=== PATIENT | male | born 1955 | race Caucasian/White ===

== ENCOUNTER → 2018-05-15 10:11 | Outpatient (CLI) | payer OTHER, SELFPAY ==
--- NOTE | 2018-05-15 | DI.RAD.S_ITS ---
PROCEDURE: XR LUMBAR SPINE MIN 4V INDICATIONS: SPINAL STENOSIS TECHNIQUE: 5 views of the lumbar spine acquired. COMPARISON: [facility], MR, LUMBAR SPINE W/O CONTRAST, 05/28/2007, 12:16. FINDINGS: Bones: 5 nonrib-bearing vertebrae are present. There is normal bony alignment. No vertebral body compression fractures. No suspicious bony lesions. Oblique views demonstrate no pars intra-articularis defects. Mild multilevel disc degeneration and moderate L4-L5 and L5-S1 facet joint arthropathy Soft tissues: Overlying bowel gas pattern is normal. No suspicious soft tissue calcifications. IMPRESSION: Mild multilevel degenerative disc disease and moderate lower lumbar spine facet joint arthropathy. Dictated by: Jj OVERTONA Interpreted: Michelle Vazquez MD on 05/15/2018 at 11:02 Approved by: Michelle Vazquez MD, PhD on 05/15/2018 at 15:11
== END ==
PROVIDERS: PCP Family Medicine; Visit Provider Physical Medicine & Rehabilitation
DX: M51.36 Other intervertebral disc degeneration, lumbar region (principal); M51.37 Other intervertebral disc degeneration, lumbosacral region; M47.816 Spondylosis without myelopathy or radiculopathy, lumbar region; M47.817 Spondylosis without myelopathy or radiculopathy, lumbosacral region
CPT/HCPCS: 72110

== ENCOUNTER 2018-07-15 07:18 | Outpatient (CLI) | payer OTHER, SELFPAY ==
[2018-07-15] VITALS (8 sets, daily range): BP systolic 104–150; BP diastolic 55–78; PULSE 57–76; RESP 16–18; TEMP 36.6; O2SAT 94–98
--- NOTE | 2018-07-15 07:19 | DI.RAD.S_ITS ---
PROCEDURE: PAIN L/S FACET INJ/BLK 1ST [place] COMPARISON: None. INDICATIONS: SPONDYLOSIS FINDINGS: Spinal needles placed at the L4-L5 and L5-S1 levels as labeled on the films, and appropriate position of the needle tip was confirmed with small amount of contrast Dictated by: Memo Denson M.D. on 07/15/2018 at 13:21 Approved by: Memo Denson M.D. on 07/15/2018 at 13:23
[2018-07-15] MEDS: MIDAZOLAM 5 MG/5 ML VIAL IV (08:19)
[2018-07-15] MEDS: IOPAMIDOL 15 ML VIAL 3 ML INJ (08:31)
[2018-07-15] MEDS: BETAMETHASONE 30 MG/5 ML MDV 12 MG INJ (08:32)
[2018-07-15] MEDS: LIDOCAINE 1% 20 ML INJ 10 ML INJ (08:32)
--- NOTE | 2018-07-15 08:35 | PC.NURSE ---
ASSISTING PT OFF TABLE AND TRANSPORTING TO POST PROC AREA IN STABLE CONDITION
--- NOTE | 2018-07-15 08:42 | P.PCN_ITS ---
Procedures Date/Time Date of procedure: 07/15/18 Time of procedure: 08:41 General Procedure description: PREOP DIAGNOSIS 1. FACET ARTHROPATHY 2. AXIAL LBP 3. MULTILEVEL DDD POST OP DIAGNOSIS 1. FACET ARTHROPATHY 2. AXIAL LBP 3. MULTILEVEL DDD PROCEDURES 1. FLUORSCOPICALLY GUIDED CONTRAST CONTROLLED FACET JOINT INJECTIONS BILATERAL L4/5, L5/S1 PHYSICIAN: Gopal Akers, DO INDICATIONS Joey is referred by Dr. Rush for treatment of Axial LBP FINDINGS Multilevel Facet Arthropathy with Clinically significant axial LBP DESCRIPTION OF PROCEDURE Fluoroscopically guided, contrast-controlled bilateral L4/5, L5/S1 facet joint injections. Following denial of allergy and review of potential side effects and complications, including, but not necessarily limited to, infection, allergic reaction, local tissue breakdown, stroke, temporary or permanent nerve injury, paralysis, and possible , the patient indicated that the patient understood and agreed to proceed. An informed consent document was signed by the patient, witnessed by a nurse, and placed in the patient's chart. Additionally, other treatment options including medications, modalities, and physical therapy were reviewed with the patient. After review of previous anaesthesic history and IV conscious sedation the patient was deemed safe to proceed with todays procedure with IV conscious sedation as ASA class II designation. Safety time-out was performed to confirm patient ID, procedure to be performed and site of procedure. IV sedation was accomplished with a combination of 3mg was administered by the RN after DO order , titrated to patient comfort during the course of the procedure while the patient remained responsive to all verbal commands In the prone position, following sterile prep and drape of the lumbar region, the posterior aspect of the L4/5, L5/S1 facet joints were identified fluoroscopically. The skin was anesthetized via a 25-gauge 1.5-inch needle with 1% lidocaine solution into the corresponding facet joints. At this point, a 22-gauge 5-inch spinal needle was atraumatically introduced and advanced under fluoroscopic guidance into the corresponding facet joints. Following negative aspiration, injections of approximately 0.2-cc of Isovue 200 confirmed interarticular placement without vascular uptake. The identical procedure was then performed at the L4/5, L5/S1 facet joints on the left. Radiological data, including multiple fluoroscopic views of the lumbosacral spine, reveal a spinal needle at the L4/5, L5/S1 facet joints bilaterally. Subsequent views show flow of contrast material both superiorly and inferiorly within the joint space without vascular or intrathecal uptake. At this point, a total of 0.5 cc including a mixture of 0.25cc Marcaine and 0.25cc betamethasone was injected without complication into each of the corresponding facet joints. The patient tolerated the procedure well without signs or symptoms of complications prior to transfer to the recovery area continued monitoring without incident. The patient was then transferred to the recovery area where they were observed for an appropriate period of time after the injection. The patient reported a VAS score of 7 prior to the procedure and a post- procedure VAS of 0. Total Fluoroscopy Time: 20.3 seconds Total Conscious Sedation Time: 24min POST OP INSTRUCTIONS The patient was provided a Pain Log to continue to record their response to the target-specific procedure prior to follow-up visit with their referring physician. Additionally, specific post-injection care instructions and a contact number to our office were provided if concerns arise regarding possible complications associated with the procedure are suspected. Gopal Akers, Complications: none
--- NOTE | 2018-07-15 09:28 | PC.NURSE ---
pt returned from procedure, awake and able to move from w/c to chair with minimal assist. Resumed monitoring from Kelley NERI.
== END 2018-07-15 09:36 ==
LOC: RAD 07:19
PROVIDERS: PCP Family Medicine; Visit Provider Physical Medicine & Rehabilitation
DX: M47.817 Spondylosis without myelopathy or radiculopathy, lumbosacral region (principal); M47.816 Spondylosis without myelopathy or radiculopathy, lumbar region; M51.37 Other intervertebral disc degeneration, lumbosacral region; M51.36 Other intervertebral disc degeneration, lumbar region; M54.5 Low back pain
CPT/HCPCS: 64493; 64494; 99152; J0702; J2250

== ENCOUNTER 2018-08-26 12:52 | Emergency (ER) | payer OTHER, SELFPAY ==
[2018-08-26] VITALS (10 sets, daily range): BP systolic 101–144; BP diastolic 50–80; PULSE 51–127; RESP 14–24; TEMP 36.7; O2SAT 94–98
--- NOTE | 2018-08-26 13:06 | DI.RAD.S_ITS ---
PROCEDURE: XR CHEST 1V INDICATIONS: HTN emergency TECHNIQUE: One view of the chest was acquired. COMPARISON: None. FINDINGS: Surgical changes and devices: None. Lungs and pleura: Lung volumes are low. There are is likely basilar atelectasis and vascular crowding. Mediastinum: Mediastinal contours appear normal. Heart size is normal. Bones and chest wall: No suspicious bony lesions. Overlying soft tissues appear unremarkable. IMPRESSION: Basilar atelectasis and vascular crowding in the setting of low lung volumes. Dictated by: Bridgette Girard M.D. on 08/26/2018 at 13:58 Approved by: Bridgette Girard M.D. on 08/26/2018 at 14:01
--- NOTE | 2018-08-26 13:09 | ED.HA ---
HPI - Headache <Roberto Bello DO - Last Filed: 08/27/18 10:17> General Chief Complaint: Hypertension Stated Complaint: high blood pressure, headache Time Seen by Provider: 08/26/18 13:06 Source: patient Mode of arrival: ambulatory Limitations: no limitations History of Present Illness HPI Narrative: 63-year-old male nonsmoker with history of hypertension, presents with elevated blood pressures in the 190s and headache since yesterday. He recently had 1 of his antihypertensive stopped as it was seemingly related to swelling of his tongue. He still takes atenolol hydrochlorothiazide. His headache is improved but still present. He denies any blurred vision, trouble with speech or focal neurologic findings such as numbness, tingling or weakness. He denies any chest pain, shortness of breath or abdominal pain. He has no nausea, or diarrhea. He denies provocation or palliation of his headache MD Complaint: headache Onset (ago): day(s) Onset description: gradual Quality: aching Relieving factors: nothing Exacerbating factors: none Treatments prior to arrival: none Related Data Home Medications Medication Instructions Recorded Confirmed atenolol 50 mg PO DAILY #0 12/16/12 08/26/18 finasteride 5 mg PO DAILY #0 12/16/12 08/26/18 allopurinol 300 mg tablet 300 mg PO DAILY 05/15/18 08/26/18 hydrochlorothiazide 25 mg tablet 25 mg PO DAILY 05/15/18 08/26/18 montelukast 10 mg tablet 10 mg PO QPM 05/15/18 08/26/18 tamsulosin 0.4 mg capsule 0.4 mg PO DAILY 05/15/18 08/26/18 Blue Emu 1 applic TOPICAL PRN PRN 08/26/18 08/26/18 omeprazole 40 mg PO BID 08/26/18 08/26/18 Previous Rx's Medication Instructions Recorded celecoxib 200 mg capsule 200 mg PO DAILY #90 cap 08/14/18 Allergies Allergy/AdvReac Type Severity Reaction Status Date / Time losartan Allergy Severe Anaphylaxis Verified 08/26/18 13:11 carbamazepine [CARBAMAZEPINE] Allergy Mild Verified 08/26/18 13:11 lamotrigine [LAMOTRIGINE] Allergy Mild Verified 08/26/18 13:11 Review of Systems <DO Reinaldo Zhou Last Filed: 08/27/18 10:17> Constitutional Denies chills, Denies fever(s), Reports headache(s), Denies lethargy and Denies weakness Eyes Denies change in vision, Denies eye discharge, Denies irritation and Denies loss of vision ENT Ears, Nose, Mouth, and Throat: Denies change in voice, Reports headache(s), Denies neck pain and Denies sore throat Cardiovascular Denies chest pain, Denies irregular heart rhythm, Denies lightheadedness, Denies palpitations, Denies dyspnea, Denies dyspnea on exertion and Denies orthopnea Respiratory Denies cough, Denies dyspnea, Denies dyspnea on exertion and Denies wheezing Gastrointestinal Gastrointestinal: Denies abdominal pain, Denies change in bowel habits, Denies diarrhea, Denies nausea and Denies vomiting Genitourinary Denies hematuria, Denies flank pain, Denies urinary incontinence and Denies urinary urgency Musculoskeletal Denies neck pain Integumentary/Breasts Denies pruritus, Denies erythema, Denies rash and Denies wounds Neurologic Denies confusion, Reports headache(s), Denies loss of vision and Denies weakness Psychiatric Denies anxiety, Denies confusion, Denies depression, Denies homicidal ideation and Denies suicidal ideation Endocrine Denies palpitations Hematologic/Lymphatic Denies easy bruising Allergic/Immunologic Denies wheezing Exam <Roberto Bello, - Last Filed: 08/27/18 10:17> Narrative Exam Narrative: GENERAL: This is a well-nourished, well-developed patient, in mild distress. HEAD: Atraumatic. Normocephalic. No temporal or scalp tenderness. EYES: Pupils equal round and reactive. Extraocular motions intact. No scleral icterus. No injection or drainage. ENT: Nose without bleeding, purulent drainage or septal hematoma. Throat without erythema, tonsillar hypertrophy or exudate. Uvula midline. Airway patent. NECK: Trachea midline. No JVD or lymphadenopathy. Supple, nontender, no meningeal signs. CARDIOVASCULAR: Regular rate and rhythm without murmurs, gallops, or rubs. RESPIRATORY: Clear to auscultation. Breath sounds equal bilaterally. No wheezes, rales, or rhonchi. GASTROINTESTINAL: Abdomen soft, non-tender, nondistended. No hepato-splenomegaly, or palpable masses. No guarding. EXTREMITIES: No clubbing, cyanosis, or edema. No joint tenderness, effusion, or edema noted. BACK: Nontender without deformity or crepitance. No flank tenderness. NEURO: AOx3. SKIN: No rash or erythema. NIH Stroke Scale 1a. LOC: Patient is alert and keenly responsive (0) 1b. LOC Questions: Patient answers both LOC questions accurately (0) 1c. LOC Commands: Patient performs both tasks correctly (0) 2. Best Gaze: Normal (0) 3. Visual: No visual loss (0) 4. Facial palsy: Normal symmetrical movements (0) 5. Motor arm: No drift (0) 6. Motor leg: No drift (0) 7. Limb ataxia: Absent (0) 8. Sensory: Normal (0) 9. Best language: No aphasia; normal (0) 10. Dysarthria: Normal (0) 11. Extinction and inattention: No abnormality (0) NIHSS: 0 Initial Vital Signs Initial Vital Signs: Vital Signs Temperature 98.1 F 08/26/18 13:05 Pulse Rate 97 H 08/26/18 13:05 Respiratory Rate 22 08/26/18 13:05 Blood Pressure 132/69 08/26/18 13:05 Pulse Oximetry 97 08/26/18 13:05 <Karen Driscoll DO - Last Filed: 08/26/18 21:47> Initial Vital Signs Initial Vital Signs: Vital Signs Temperature 98.1 F 08/26/18 13:05 Pulse Rate 97 H 08/26/18 13:05 Respiratory Rate 22 08/26/18 13:05 Blood Pressure 132/69 08/26/18 13:05 Pulse Oximetry 97 08/26/18 13:05 Course <Roberto Bello DO - Last Filed: 08/27/18 10:17> Orders Ordered: Discontinued Medications Sodium Chloride (Normal Saline 0.9%) 1,000 mls @ 150 mls/hr IV CONT FAITH Last Infusion: 08/26/18 21:48 Dose: 0 mls/hr Admin: 08/26/18 13:32 Dose: 150 mls/hr Lorazepam (Ativan) 1 mg IV NOW ONE Stop: 08/26/18 14:57 Last Admin: 08/26/18 14:56 Dose: 1 mg Vital Signs - 8 hr 08/26/18 14:00 08/26/18 15:55 08/26/18 16:30 Pulse Rate 53 L 55 L 51 L Respiratory Rate 17 19 24 Blood Pressure [Right Arm] 101/56 L 125/71 114/62 Pulse Oximetry 97 96 97 08/26/18 17:41 08/26/18 19:00 08/26/18 20:00 Pulse Rate 52 L 51 L 52 L Respiratory Rate 22 20 24 Blood Pressure [Right Arm] 120/61 105/50 L 120/68 Pulse Oximetry 95 94 96 08/26/18 21:00 Pulse Rate 65 Respiratory Rate 14 Blood Pressure [Right Arm] 115/72 Pulse Oximetry 95 <Karen Driscoll DO - Last Filed: 08/26/18 21:47> Orders Ordered: Discontinued Medications Sodium Chloride (Normal Saline 0.9%) 1,000 mls @ 150 mls/hr IV CONT FAITH Last Infusion: 08/26/18 21:48 Dose: 0 mls/hr Admin: 08/26/18 13:32 Dose: 150 mls/hr Lorazepam (Ativan) 1 mg IV NOW ONE Stop: 08/26/18 14:57 Last Admin: 08/26/18 14:56 Dose: 1 mg Vital Signs - 8 hr 08/26/18 14:00 08/26/18 15:55 08/26/18 16:30 Pulse Rate 53 L 55 L 51 L Respiratory Rate 17 19 24 Blood Pressure [Right Arm] 101/56 L 125/71 114/62 Pulse Oximetry 97 96 97 08/26/18 17:41 08/26/18 19:00 08/26/18 20:00 Pulse Rate 52 L 51 L 52 L Respiratory Rate 22 20 24 Blood Pressure [Right Arm] 120/61 105/50 L 120/68 Pulse Oximetry 95 94 96 08/26/18 21:00 Pulse Rate 65 Respiratory Rate 14 Blood Pressure [Right Arm] 115/72 Pulse Oximetry 95 MDM - Headache <Roberto Bello DO - Last Filed: 08/27/18 10:17> Lab Data Result diagrams: 08/26/18 13:30 08/26/18 13:30 Lab Results 08/26/18 08/26/18 Range/Units 13:30 13:30 WBC 9.8 (4.5-11.0) X10^3/uL RBC 5.42 (4.5-5.9) X10^6/uL Hgb 13.4 L (13.5-17.5) g/dL Hct 42.6 (41-53) % MCV 78.5 L (80-100) fL MCH 24.7 L (26-34) PG MCHC 31.4 (30-36) % RDW 17.3 H (11.6-14.8) % Plt Count 303 (150-400) X10^3/uL Neut % (Auto) 74.3 (50-75) % Lymph % (Auto) 13.9 L (25-40) % Mcleod % (Auto) 8.9 (3-14) % Eos % (Auto) 2.1 (2-4) % Baso % (Auto) 0.8 (0-2) % Neut # (Auto) 7300 H (2704-8712) /uL Lymph # (Auto) 1400 (0917-5749) /uL Mcleod # (Auto) 900 (0-900) /uL Eos # (Auto) 200 (0-450) /uL Baso # (Auto) 100 (0-100) /uL Sodium 140 (137-145) mmol/L Potassium 3.8 (3.4-5.1) mmol/L Chloride 103 (98-107) mmol/L Carbon Dioxide 26 (22-32) mmol/L BUN 16 (9-20) mg/dL Creatinine 0.90 (0.66-1.25) mg/dL Estimated GFR > 60.0 (>60) mL/min BUN/Creatinine Ratio 17.8 (6-22) Glucose 181 H (80-110) mg/dL Calcium 9.2 (8.4-10.2) mg/dL Total Bilirubin 0.5 (0.2-1.3) mg/dL AST 58 (17-59) IU/L ALT 67 (21-72) IU/L Alkaline Phosphatase 78 (38-126) U/L Total Creatine Kinase 190 H (55-170) U/L CK-MB (CK-2) 3.18 H (<2.37) ng/mL CK-MB (CK-2) Rel Index 1.7 (1.5-5.0) % Troponin I < 0.012 (0.01-0.034) ng/mL Total Protein 7.5 (6.3-8.2) g/dL Albumin 4.2 (3.5-5.0) g/dL Globulin 3.3 (1.7-4.1) g/dL Albumin/Globulin Ratio 1.3 (1.0-2.8) Lipase 61 (23-300) U/L Imaging Data CT scan - head: Radiologist's impression: Patient: Joey May MR#: [id number] : 1955 Acct:[id number] Age/Sex: 63 / M Date of Service: 08/26/18 Loc: ED Accession Number: [id number] Procedure: CT head/brain wo con Ordering Provider: Roberto Bello D.O. PROCEDURE: CT HEAD/BRAIN WO CON INDICATIONS: DURBIN, HTN TECHNIQUE: Noncontrast 4.5 mm thick angled axial sections acquired from the foramen magnum to the vertex, with coronal and sagittal reformats. For radiation dose reduction, the following was used: automated exposure control, adjustment of mA and/or kV according to patient size. COMPARISON: [facility], CT, BRAIN W/O CONTRAST, 12/20/2007, 17:28. FINDINGS: Image quality: Excellent. CSF spaces: Basal cisterns are patent. No extra-axial fluid collections. The ventricles are symmetric in size and shape. Brain: Ill-defined hypodensity involving left posterior temporal region is seen with internal linear hyperdensity. The There is cerebral volume loss for age, with resultant ventricular and sulcal prominence. There are periventricular and deep white matter chronic small vessel ischemic changes. There is intracranial internal carotid artery atherosclerosis. Skull and face: Calvarium and visualized facial bones appear intact, without suspicious lesions. Sinuses: Visualized sinuses and mastoids are clear. IMPRESSION: 1. Ill-defined area of hypodensity involving posterior left temporal lobe at patient's known area of AV malformation, slightly more prominent in size on the current study compared to 2008 study. Internal linear hyperdensity, which may represent linear calcification. Comparison with more recent study can be helpful if available. MRI of brain can also be done for further evaluation of this region. 2. No other area of abnormal density is seen. Small old infarct in right frontal lobe. No mass effect or midline shift. Dictated by: Trell Cutler M.D. on 08/26/2018 at 13:36 Approved by: Trell Cutler M.D. on 08/26/2018 at 13:49 MRI - head: Radiologist's impression: [address] [address] Magnetic Resonance Report Signed Patient: Joey May MR#: [id number] : 1955 Acct:[id number] Age/Sex: 63 / M Date of Service: 08/26/18 Loc: ED Accession Number: [id number] Procedure: MR head/brain wo con Ordering Provider: Roberto Bello D.O. PROCEDURE: MR HEAD/BRAIN WO CON INDICATIONS: DURBIN, HTN, abnormality on CT TECHNIQUE: Non-contrast axial T1 spin echo, axial T2 fast spin echo, sagittal and axial FLAIR, coronal T2 fast spin echo, axial gradient echo, axial diffusion and ADC through the brain. COMPARISON: [facility], CT, BRAIN W/O CONTRAST, 12/20/2007, 17:28. [facility], CT, CT HEAD/BRAIN WO CON, 08/26/2018, 13:06. FINDINGS: Image quality: Limited by patient motion CSF spaces: Ventricles appear symmetric in size and shape. Basal cisterns are patent. No extra-axial fluid collections. Brain: 3.3 x 3.3 x 2.3 cm cystic lesion is noted in the left temporal lobe. The left temporal lobe cystic lesion is surrounded by vasogenic edema. There is curvilinear decreased susceptibility weighted signal in the posterior margin of the cystic lesion may represent calcium or chronic hemorrhage. There is mild cerebral volume loss for age. Brainstem appears normal. Diffusion-weighted images show no acute ischemic insults. Small, chronic, lacunar infarct with surrounding gliosis noted in the right frontal subcortical white matter. Normal intravascular flow voids are present. Skull and face: Calvarial bone marrow is normal in signal. Orbits are normal. Sinuses: Sinuses and mastoids are clear. IMPRESSION: 1. 3.3 x 3.3 x 2.3 cm cystic lesion left temporal lobe this may represent encephalomalacia with surrounding gliosis related to prior gamma knife therapy versus neoplastic process which has undergone cystic degeneration/necrosis. Recommend MRI of the brain with gadolinium contrast for further evaluation. 2. Small, chronic, right frontal subcortical white matter lacunar infarct. 3. Mild, diffuse cerebral volume loss. 4. Findings telephoned to Dr. Roberto Bello on 08/26/2018 at 1541 hrs. Dictated by: Michelle Vazquez MD, PhD on 08/26/2018 at 15:29 Approved by: Michelle Vazquez MD, PhD on 08/26/2018 at 15:42 <Karen Americo, DO - Last Filed: 08/26/18 21:47> Lab Data Attestation: I reviewed the patient's lab results. Lab Results 08/26/18 08/26/18 Range/Units 13:30 13:30 WBC 9.8 (4.5-11.0) X10^3/uL RBC 5.42 (4.5-5.9) X10^6/uL Hgb 13.4 L (13.5-17.5) g/dL Hct 42.6 (41-53) % MCV 78.5 L (80-100) fL MCH 24.7 L (26-34) PG MCHC 31.4 (30-36) % RDW 17.3 H (11.6-14.8) % Plt Count 303 (150-400) X10^3/uL Neut % (Auto) 74.3 (50-75) % Lymph % (Auto) 13.9 L (25-40) % Mcleod % (Auto) 8.9 (3-14) % Eos % (Auto) 2.1 (2-4) % Baso % (Auto) 0.8 (0-2) % Neut # (Auto) 7300 H (2406-5867) /uL Lymph # (Auto) 1400 (0505-5832) /uL Mcleod # (Auto) 900 (0-900) /uL Eos # (Auto) 200 (0-450) /uL Baso # (Auto) 100 (0-100) /uL Sodium 140 (137-145) mmol/L Potassium 3.8 (3.4-5.1) mmol/L Chloride 103 (98-107) mmol/L Carbon Dioxide 26 (22-32) mmol/L BUN 16 (9-20) mg/dL Creatinine 0.90 (0.66-1.25) mg/dL Estimated GFR > 60.0 (>60) mL/min BUN/Creatinine Ratio 17.8 (6-22) Glucose 181 H (80-110) mg/dL Calcium 9.2 (8.4-10.2) mg/dL Total Bilirubin 0.5 (0.2-1.3) mg/dL AST 58 (17-59) IU/L ALT 67 (21-72) IU/L Alkaline Phosphatase 78 (38-126) U/L Total Creatine Kinase 190 H (55-170) U/L CK-MB (CK-2) 3.18 H (<2.37) ng/mL CK-MB (CK-2) Rel Index 1.7 (1.5-5.0) % Troponin I < 0.012 (0.01-0.034) ng/mL Total Protein 7.5 (6.3-8.2) g/dL Albumin 4.2 (3.5-5.0) g/dL Globulin 3.3 (1.7-4.1) g/dL Albumin/Globulin Ratio 1.3 (1.0-2.8) Lipase 61 (23-300) U/L Imaging Data CTA head/neck: Radiologist's impression: PROCEDURE: CT ANGIO HEAD AND NECK INDICATIONS: request per neurosurgery at [facility] [place] TECHNIQUE: Pre-contrast 4.5 mm thick sections acquired from the foramen magnum to the vertex. After the administration of intravenous contrast, 1 mm thick sections acquired from the aortic arch through the [place]. Post-contrast 4.5 mm thick sections then re-acquired from the foramen magnum to the vertex. 3-dimensional ltgjlog-hprynjmgt-zfzxqtuhen (MIP) and/or volume rendering reformats were acquired of the central intracranial vasculature and neck separately. COMPARISON: [facility], MR, MR HEAD/BRAIN WO CON, 08/26/2018, 14:59. [facility], CT, CT HEAD/BRAIN WO CON, 08/26/2018, 13:06. [facility], CT, KIDNEY/ URETER/BLADDER, 07/31/2015, 21:44. [facility], CT, KIDNEY/ URETER/BLADDER, 12/24/2014, 21:48. [facility], CT, BRAIN W/O CONTRAST, 12/20/2007, 17:28. FINDINGS: Image quality: Excellent. BRAIN: CSF spaces: Ventricles are normal in size and shape. Basal cisterns are patent. No extra-axial fluid collections. Brain: No midline shift. There is redemonstration of the 3.3 cm enhancing left temporal lobe cystic lesion, better evaluated on comparison MRI performed earlier today. Small chronic right frontal subcortical lacunar infarct better evaluated on comparison exams. Skull and face: Calvarium and facial bones appear intact, without suspicious lesions. HEAD CT ANGIOGRAPHY: Anterior circulation: Intracranial internal carotid arteries are normal in size and flow. There is calcified plaque of the internal carotid arteries. The flow within the paired anterior cerebral arteries is normal and symmetric. The flow within the middle cerebral arteries is normal and symmetric. The anterior communicating artery is seen. No aneurysms are seen. Posterior circulation: The right vertebral artery is dominant. The left vertebral artery does not definitively join with the right vertebral artery, and appears to terminate as a left inferior cerebellar artery. The basilar artery appears to originate from the right vertebral artery. There is poor opacification of the origins of the right posterior cerebral artery, which does not definitively join with the basilar artery. Flow within the posterior cerebral arteries is otherwise normal and symmetric. No aneurysms are seen. NECK CT ANGIOGRAPHY: Carotid system: The great vessels demonstrate a conventional anatomy as they arise from the aortic arch. The origins of the common carotid arteries appear patent. The common carotid arteries demonstrate normal caliber and courses. The bifurcation regions are both widely patent. There is mild calcified and noncalcified plaque of the bilateral carotid bifurcations. The internal carotid arteries demonstrate normal calibers and courses. Posterior circulation: The origins of the vertebral arteries both appear widely patent. The more superior extracranial portions of both vertebral arteries also demonstrate normal courses and calibers. The left vertebral artery appears to terminate as an inferior left cerebellar artery, with the right vertebral artery providing the origin of the basilar artery. Soft tissues: Visualized neck soft tissues demonstrate no suspicious abnormalities. Bones: Mild multilevel degenerative changes of the cervical spine. IMPRESSION: 1. 3.3 cm enhancing left temporal lobe cystic lesion, better evaluated on comparison MRI performed earlier today. 2. Mild calcified plaque of the bilateral carotid bifurcations. The cervical carotid and vertebral arteries are otherwise patent and demonstrate no aneurysm, stenosis, or occlusion. 3. Right dominant vertebral artery providing the origin of the basilar artery. Left vertebral artery appears to terminate as an inferior cerebellar artery without definite connection to the right vertebral artery. 4. The origin of the right posterior cerebral artery is poorly opacified at the expected location of its connection with the basilar artery; this may be developmental and represent origination of the right posterior cerebral artery from the right posterior communicating artery, or represent an occlusion at the junction of the basilar artery with the right posterior cerebral artery. Any quantitative measurements of stenosis were performed using NASCET criteria. Dictated by: Benny Linares M.D. on 08/26/2018 at 21:10 MDM Narrative Medical decision making narrative: I have taken over for day shift provider. I have seen evaluated patient myself. He is resting comfortably. Blood pressure is decreased significantly. He does mild headache. 8:[address] Agrawal neuro surgery at [facility] has reviewed patient's CT a states that it is stable compared to previous. At this time follow up in outpatient clinic. 9:45 p.m. I have updated the patient on official radiology results and to follow up at [facility]. All questions have been addressed. Discharge Plan Departure Patient Disposition: Home Clinical Impression: Headache Discharge Date/Time: 08/26/18 21:50 Interventions: ED Discharge Assessment Last Done: 08/26/18 21:48 Instructions: DI for Headache Activity Restrictions/Additional Instructions: *You have been diagnosed with Headache *What to do: He may need to have her blood pressure readings rechecked and followed with her primary at this time no indication to change medication *Continue to take medications as directed *Follow up with your primary care provider in 2-3 days Call [facility] [phone] for follow-up for AVM *Return to ER if you should have worsening headache, weakness, speech difficulty or any new, worsening or concerning symptoms Prescriptions: No Action atenolol 50 MG tablet 50 mg PO DAILY Qty: 0 RF: 0 finasteride 5 MG tablet 5 mg PO DAILY Qty: 0 RF: 0 Blue Emu 1 applic Topical PRN PRN (Reason: muscle pain) RF: 0 omeprazole 20 mg capsule,delayed release(DR/EC) 40 mg PO BID RF: 0 allopurinol 300 mg tablet 300 mg PO DAILY RF: 0 montelukast 10 mg tablet 10 mg PO QPM RF: 0 hydrochlorothiazide 25 mg tablet 25 mg PO DAILY RF: 0 tamsulosin 0.4 mg capsule 0.4 mg PO DAILY RF: 0 celecoxib [Celebrex] 200 mg capsule 200 mg PO DAILY Qty: 90 RF: 2 ED Cosign/Signout <Roberto Bello DO - Last Filed: 08/27/18 10:17> Cosign ED Attending Cosignature Attestation: I was immediately available in the department for consultation. Documentation has been reviewed. I agree with assessment and plan.
--- NOTE | 2018-08-26 13:15 | PC.NURSE ---
Pt reports increase in blood pressure, after being removed from lisinopril. Pt reports feeling headaches when blood pressure is elevated. reports checks blood pressure with automatic upper arm cuff.
[2018-08-26] MEDS: SODIUM CHLORIDE 0.9% 1,000 ML 150 ML IV (13:32)
[2018-08-26 13:37] LABS: Add Manual Diff / Slide Review NO; Basophils Absolute Auto 100 /uL (0-100); Basophils Percent Auto 0.8 % (0-2); Eosinophils Absolute Auto 200 /uL (0-450); Eosinophils Percent Auto 2.1 % (2-4); Hematocrit 42.6 % (41-53); Hemoglobin 13.4 g/dL (13.5-17.5); Lymphocytes Absolute Auto 1400 /uL (1100-4500); Lymphocytes Percent Auto 13.9 % (25-40); Mean Corpuscular HGB Conc 31.4 % (30-36); Mean Corpuscular Hemoglobin 24.7 PG (26-34); Mean Corpuscular Volume 78.5 fL (80-100); Monocytes Absolute Auto 900 /uL (0-900); Monocytes Percent Auto 8.9 % (3-14); Neutrophils Absolute Auto 7300 /uL (1500-7000); Neutrophils Percent Auto 74.3 % (50-75); Platelet Count 303 X10^3/uL (150-400); Red Blood Cell Count 5.42 X10^6/uL (4.5-5.9); Red Cell Distribution Width 17.3 % (11.6-14.8); White Blood Cell Count 9.8 X10^3/uL (4.5-11.0)
[2018-08-26 13:50] LABS: Alanine Aminotransferase 67 IU/L (21-72); Albumin 4.2 g/dL (3.5-5.0); Albumin Globulin Ratio 1.3 (1.0-2.8); Alkaline Phosphatase 78 U/L (38-126); Aspartate Aminotransferase 58 IU/L (17-59); BUN Creatinine Ratio 17.8 (6-22); Bilirubin Total 0.5 mg/dL (0.2-1.3); Blood Urea Nitrogen 16 mg/dL (9-20); Calcium 9.2 mg/dL (8.4-10.2); Carbon Dioxide 26 mmol/L (22-32); Chloride 103 mmol/L (98-107); Creatine Kinase 190 U/L (55-170); Estimated Glomerular Filt Rate > 60.0 mL/min (>60); Globulin 3.3 g/dL (1.7-4.1); Glucose 181 mg/dL (80-110); HEMOLYSIS 17 (0-50); Lipase 61 U/L (23-300); Potassium 3.8 mmol/L (3.4-5.1); Sodium 140 mmol/L (137-145); Total Protein 7.5 g/dL (6.3-8.2)
[2018-08-26 14:02] LABS: Troponin I < 0.012 ng/mL (0.01-0.034)
[2018-08-26 14:05] LABS: CKMB % Relative Index 1.7 % (1.5-5.0); Creatine Kinase MB 3.18 ng/mL (<2.37)
--- NOTE | 2018-08-26 14:22 | DI.MRI.S_ITS ---
PROCEDURE: MR HEAD/BRAIN WO CON INDICATIONS: DURBIN, HTN, abnormality on CT TECHNIQUE: Non-contrast axial T1 spin echo, axial T2 fast spin echo, sagittal and axial FLAIR, coronal T2 fast spin echo, axial gradient echo, axial diffusion and ADC through the brain. COMPARISON: [facility], CT, BRAIN W/O CONTRAST, 12/20/2007, 17:28. [facility], CT, CT HEAD/BRAIN WO CON, 08/26/2018, 13:06. FINDINGS: Image quality: Limited by patient motion CSF spaces: Ventricles appear symmetric in size and shape. Basal cisterns are patent. No extra-axial fluid collections. Brain: 3.3 x 3.3 x 2.3 cm cystic lesion is noted in the left temporal lobe. The left temporal lobe cystic lesion is surrounded by vasogenic edema. There is curvilinear decreased susceptibility weighted signal in the posterior margin of the cystic lesion may represent calcium or chronic hemorrhage. There is mild cerebral volume loss for age. Brainstem appears normal. Diffusion-weighted images show no acute ischemic insults. Small, chronic, lacunar infarct with surrounding gliosis noted in the right frontal subcortical white matter. Normal intravascular flow voids are present. Skull and face: Calvarial bone marrow is normal in signal. Orbits are normal. Sinuses: Sinuses and mastoids are clear. IMPRESSION: 1. 3.3 x 3.3 x 2.3 cm cystic lesion left temporal lobe this may represent encephalomalacia with surrounding gliosis related to prior gamma knife therapy versus neoplastic process which has undergone cystic degeneration/necrosis. Recommend MRI of the brain with gadolinium contrast for further evaluation. 2. Small, chronic, right frontal subcortical white matter lacunar infarct. 3. Mild, diffuse cerebral volume loss. 4. Findings telephoned to Dr. Roberto Bello on 08/26/2018 at 1541 hrs. Dictated by: Michelle Vazquez MD, PhD on 08/26/2018 at 15:29 Approved by: Michelle Vazquez MD, PhD on 08/26/2018 at 15:42
[2018-08-26] MEDS: LORazepam 2 MG/ML SYRINGE 1 MG IV (14:56)
--- NOTE | 2018-08-26 17:38 | DI.CT.S_ITS ---
PROCEDURE: CT ANGIO HEAD AND NECK INDICATIONS: request per neurosurgery at [facility] TECHNIQUE: Pre-contrast 4.5 mm thick sections acquired from the foramen magnum to the vertex. After the administration of intravenous contrast, 1 mm thick sections acquired from the aortic arch through the [place] of [place]. Post-contrast 4.5 mm thick sections then re-acquired from the foramen magnum to the vertex. 3-dimensional rqktdzs-pyyzmujyq-hteztojxfp (MIP) and/or volume rendering reformats were acquired of the central intracranial vasculature and neck separately. COMPARISON: [facility], MR, MR HEAD/BRAIN WO CON, 08/26/2018, 14:59. [facility], CT, CT HEAD/BRAIN WO CON, 08/26/2018, 13:06. [facility], CT, KIDNEY/ URETER/BLADDER, 07/31/2015, 21:44. [facility], CT, KIDNEY/ URETER/BLADDER, 12/24/2014, 21:48. [facility], CT, BRAIN W/O CONTRAST, 12/20/2007, 17:28. FINDINGS: Image quality: Excellent. BRAIN: CSF spaces: Ventricles are normal in size and shape. Basal cisterns are patent. No extra-axial fluid collections. Brain: No midline shift. There is redemonstration of the 3.3 cm enhancing left temporal lobe cystic lesion, better evaluated on comparison MRI performed earlier today. Small chronic right frontal subcortical lacunar infarct better evaluated on comparison exams. Skull and face: Calvarium and facial bones appear intact, without suspicious lesions. HEAD CT ANGIOGRAPHY: Anterior circulation: Intracranial internal carotid arteries are normal in size and flow. There is calcified plaque of the internal carotid arteries. The flow within the paired anterior cerebral arteries is normal and symmetric. The flow within the middle cerebral arteries is normal and symmetric. The anterior communicating artery is seen. No aneurysms are seen. Posterior circulation: The right vertebral artery is dominant. The left vertebral artery does not definitively join with the right vertebral artery, and appears to terminate as a left inferior cerebellar artery. The basilar artery appears to originate from the right vertebral artery. There is poor opacification of the origins of the right posterior cerebral artery, which does not definitively join with the basilar artery. Flow within the posterior cerebral arteries is otherwise normal and symmetric. No aneurysms are seen. NECK CT ANGIOGRAPHY: Carotid system: The great vessels demonstrate a conventional anatomy as they arise from the aortic arch. The origins of the common carotid arteries appear patent. The common carotid arteries demonstrate normal caliber and courses. The bifurcation regions are both widely patent. There is mild calcified and noncalcified plaque of the bilateral carotid bifurcations. The internal carotid arteries demonstrate normal calibers and courses. Posterior circulation: The origins of the vertebral arteries both appear widely patent. The more superior extracranial portions of both vertebral arteries also demonstrate normal courses and calibers. The left vertebral artery appears to terminate as an inferior left cerebellar artery, with the right vertebral artery providing the origin of the basilar artery. Soft tissues: Visualized neck soft tissues demonstrate no suspicious abnormalities. Bones: Mild multilevel degenerative changes of the cervical spine. IMPRESSION: 1. 3.3 cm enhancing left temporal lobe cystic lesion, better evaluated on comparison MRI performed earlier today. 2. Mild calcified plaque of the bilateral carotid bifurcations. The cervical carotid and vertebral arteries are otherwise patent and demonstrate no aneurysm, stenosis, or occlusion. 3. Right dominant vertebral artery providing the origin of the basilar artery. Left vertebral artery appears to terminate as an inferior cerebellar artery without definite connection to the right vertebral artery. 4. The origin of the right posterior cerebral artery is poorly opacified at the expected location of its connection with the basilar artery; this may be developmental and represent origination of the right posterior cerebral artery from the right posterior communicating artery, or represent an occlusion at the junction of the basilar artery with the right posterior cerebral artery. Any quantitative measurements of stenosis were performed using NASCET criteria. Dictated by: Benny Linares M.D. on 08/26/2018 at 21:10 Approved by: Benny Linares M.D. on 08/26/2018 at 21:32
== END 2018-08-26 21:50 | disposition home or self-care (01) ==
PROVIDERS: Emergency Medicine; Emergency Provider Emergency Medicine; PCP Family Medicine
DX: R51 Headache (principal)
CPT/HCPCS: 36591; 70450; 70496; 70498; 70551; 71045; 80053; 82550; 82553; 83690; 84484; 85025; 93005; 93010; 96361; 96374; 99283; 99285; J2060; Q9967

== ENCOUNTER 2018-11-10 16:37 | Inpatient (IN) | payer OTHER, SELFPAY ==
[2018-11-10] VITALS (8 sets, daily range): BP systolic 107–128; BP diastolic 42–63; PULSE 55–64; RESP 15–21; TEMP 36.7–37.2; O2SAT 94–96; BMI 44.4
--- NOTE | 2018-11-10 | DI.ECHO.S_ITS ---
[facility] +---------+ : : [address] : : : [place], [place] : : : : [id number] : : : : Phone: [phone]+ Echocardiogram Report + + :Name: SHELLIE FRIAS Study Date: 11/11/2018 Height: 70 in : :[facility] Exam Location: IS Weight: 309 lb : : Gender: Male BSA: 2.5 m2 : :: 1955 Age: 63 yrs BP: 125/53 mmHg: :Reason For Study: CVA/ arrythmia : :Ordering Physician: Carlota : :Hospitalist Performed By: Lexi Page : :Referring: GOLDY RODRIGUEZ : + + Interpretation Summary Technically difficult study limiting valve and atria visualization. 1) Normal left ventricular thickness, size, wall motion, and systolic function (EF 65-70%). 2) Normal right ventricular size and function. 3) No significant valvular abnormalities by doppler assessment. 4) Injection of contrast documented no interatrial shunt. 5) No prior Echo available for comparison. Procedure: A two-dimensional transthoracic echocardiogram with color flow and Doppler was performed. The study quality was technically difficult. There is no prior echocardiogram noted for this patient. A saline contrast injection was performed to assess for cardiac shunting. A contrast injection of Definity was performed to improve assessment of LV function. The patient was in sinus bradycardia with heart rates between 48-54 bpm during the exam. Left Ventricle: The left ventricle was not well visualized but is grossly normal in size, thickness and function. The ejection fraction is estimated to be 65-70%. Left ventricular systolic function is normal without focal wall motion abnormalities. Right Ventricle: The right ventricle grossly appears normal in size with probable normal systolic function. Atria: Mildly enlarged grossly. The right atrium grossly appears normal in size. There is no Doppler evidence for an interatrial shunt. Injection of contrast documented no interatrial shunt. Mitral Valve: The mitral valve is grossly normal. There is trace mitral regurgitation. Aortic Valve: The aortic valve is not well visualized. The aortic valve opens well. No aortic regurgitation is present. Tricuspid Valve: The tricuspid valve is not well visualized, but is grossly normal. There is a trace or physiologic amount of tricuspid regurgitation. Pulmonary artery pressures cannot be estimated because of the lack of a measurable TR jet velocity. Pulmonic Valve: The pulmonic valve is not well visualized. There is trace pulmonic regurgitation. Great Vessels: The aortic root is normal size. The ascending aorta is mildly enlarged. The pulmonary artery is not well visualized, but is probably normal size. The inferior vena cava was not visualized. Pericardium/ Pleura There is no pericardial effusion. There is no pleural effusion. MMode/2D Measurements & Calculations LVIDd: 5.4 cm Ao root diam: 3.4 cm LVIDs: 3.2 cm asc Aorta Diam: 3.6 cm FS: 41.3 % IVSd: 0.86 cm LVPWd: 1.0 cm LV benito. diameter/BSA (cm/m^2): 2.2 LV sys. diameter/BSA (cm/m^2): 1.3 LA A2 area: 24.6 cm2 RA long axis: 4.9 cm LA A4 area: 32.9 cm2 RA area: 15.2 cm2 LA length (vol): 7.1 cm RA vol: 39.9 ml LA vol: 96.9 ml RA : 15.9 ml/m2 LA vol index: 38.6 ml/m2 Doppler Measurements & Calculations Ao V2 max: 141.0 cm/sec LVOT Max Grayson: 118.9 cm/sec Ao V2 mean: 83.0 cm/sec LV V1 max P.7 mmHg Ao max P.0 mmHg LV V1 VTI: 24.9 cm Ao mean P.4 mmHg sev ratio: 0.93 Ao V2 VTI: 26.7 cm MV E max grayson: 89.4 cm/sec PA V2 max: 73.0 cm/sec MV A max grayson: 66.6 cm/sec PA V2 mean: 48.7 cm/sec MV E/A: 1.3 PA mean P.1 mmHg Med Peak E' Grayson: 7.7 cm/sec PA Accel Time: 0.07 sec E/E' med: 11.6 Lat Peak E' Grayson: 6.9 cm/sec E/E' lat: 12.9 E/e' average: 12.3 MV P1/2t: 53.9 msec MV P1/2t max grayson: 89.0 cm/sec MVA(P1/2t): 4.1 cm2 Reading Physician:03:06 PM
--- NOTE | 2018-11-10 16:38 | ED.NEUROSD ---
HPI - Neuro Symptoms/Deficit General Chief Complaint: Neuro Symptoms/Deficit Stated Complaint: Stroke Time Seen by Provider: 11/10/18 16:37 Source: patient, EMS and old records reviewed Mode of arrival: EMS Limitations: no limitations History of Present Illness HPI Narrative: This is a 63-year-old male comes to the emergency department with complaint of weakness, facial droop and difficulty with speech. Patient states that his symptoms started sometime after 1. He went on break at 2:00 p.m and. he was having some weakness but not to the extent he is now. He was at work at the [employer]. They evaluated him, contacted EMS and he was transported here. Patient was interacting with [employer] staff by writing and was not able to talk his speech is improved over time but he is still slurred. He has had some facial droop on the left. He has had this intermittently in the past and states that they have not found the exact cause but think it might be muscle spasm. The weakness in his arm and leg is new. He has not had that recently He states he was told he may have had a TIA in the past. 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 He is not on any asa or blood thinners. Related Data Home Medications Medication Instructions Recorded Confirmed atenolol 50 mg PO DAILY #0 12/16/12 08/26/18 finasteride 5 mg PO DAILY #0 12/16/12 08/26/18 allopurinol 300 mg tablet 300 mg PO DAILY 05/15/18 08/26/18 hydrochlorothiazide 25 mg tablet 25 mg PO DAILY 05/15/18 08/26/18 montelukast 10 mg tablet 10 mg PO QPM 05/15/18 08/26/18 tamsulosin 0.4 mg capsule 0.4 mg PO DAILY 05/15/18 08/26/18 Blue Emu 1 applic TOPICAL PRN PRN 08/26/18 08/26/18 omeprazole 40 mg PO BID 08/26/18 08/26/18 Previous Rx's Medication Instructions Recorded celecoxib 200 mg capsule 200 mg PO DAILY #90 cap 08/14/18 Allergies Allergy/AdvReac Type Severity Reaction Status Date / Time losartan Allergy Severe Anaphylaxis Verified 11/10/18 16:53 carbamazepine [CARBAMAZEPINE] Allergy Mild Verified 11/10/18 16:53 lamotrigine [LAMOTRIGINE] Allergy Mild Verified 11/10/18 16:53 Review of Systems Review of Systems ROS Unobtainable: All systems reviewed & are unremarkable except as noted in HPI and below Constitutional Reports headache(s) Eyes Denies loss of vision ENT Ears, Nose, Mouth, and Throat: Denies dizziness, Reports headache(s) and Reports other (facial droop) Cardiovascular Denies chest pain, Denies diaphoresis, Denies syncope, Denies rapid heart rate, Denies irregular heart rhythm, Denies leg edema, Denies lightheadedness, Denies palpitations, Denies dyspnea, Denies dyspnea on exertion and Denies orthopnea Respiratory Denies change in phlegm color, Denies chest congestion, Denies cough, Denies dyspnea, Denies dyspnea on exertion and Denies wheezing Gastrointestinal Gastrointestinal: Denies abdominal pain, Denies change in bowel habits, Denies diarrhea, Denies nausea and Denies vomiting Genitourinary Denies dysuria, Denies urinary frequency and Denies urinary hesitancy Musculoskeletal Reports abnormal gait, Reports muscle weakness (left arm/leg), Denies numbness and Denies tingling Neurologic Reports as per HPI, Reports abnormal speech, Reports abnormal gait, Denies confusion, Denies dizziness, Denies syncope, Reports headache(s), Reports focal weakness (left arm/leg), Denies loss of vision, Denies numbness, Denies seizure-like activity, Denies sensory deficit, Denies tingling and Denies paresthesias Psychiatric Denies confusion Endocrine Denies palpitations Allergic/Immunologic Denies wheezing [facility] Medical History Status post gamma knife treatment (Chronic) AVM (arteriovenous malformation) (Chronic) Social History Smoking Status: Former smoker Social History Smoking Status: Former smoker Exam Narrative Exam Narrative: GEN: Well-nourished, obese male, alert and oriented x 3, patient appears to be in moderate distress. HEENT: Atraumatic, pupils are equal round reactive to light, extraocular movements are intact, nares are clear, TMs are clear with no fluid, there is no conjunctival pallor. Throat is clear without any exudates, erythema, tonsillar enlargement or uvular deviation, left lower facial droop. HEART: Regular rate and rhythm without murmur, clicks, rubs. Pulses are equal in upper and lower extremities LUNGS:Lungs clear to auscultation, no wheezes, rales, crackles, chest moves symmetrically ABD:bowel sounds normal, soft, non-tender, no guarding, rebound, rigidity, no masses noted, no hepatosplenomegaly :No CVA tenderness MSCL: Non-tender, no muscle atrophy, patient does lift up his left upper extremity as well as leg but drifts back down to the bed he is not able to hold it up. He does not have any issues with the right upper extremity or leg. He also has difficulty with finger-nose finger on the left thumb as well as heel-ann he is not able to accomplish this. He is on the right. He states maybe some mild decrease in sensation although it is difficult for him to tell. NEURO:CN 2-12 intact, sensation normal, reflexes 2/4 upper and lower extremities. see above. Patient has some mild dysarthria. No aphasia. Initial Vital Signs Initial Vital Signs: Vital Signs Temperature 98.1 F 11/10/18 16:30 Pulse Rate 64 11/10/18 16:30 Respiratory Rate 19 11/10/18 16:30 Blood Pressure 127/52 L 11/10/18 16:30 Pulse Oximetry 94 11/10/18 16:30 Scores NIH Stroke Scale Level of Conciousness: Alert, keenly responsive Ask month/age: Answers both questions correctly. Open/close eyes, close hand: Performs both tasks correctly Best gaze horizontal: Normal Visual savage: No visual loss Facial palsy: Partial paralysis, total or near total paralysis of lower face Left arm drift: Some effort against gravity, cannot maintain, drifts down to bed Right arm drift: No drift for full 10 sec Left leg drift: Some effort against gravity, cannot maintain, drifts down to bed Right leg drift: No drift for full 10 sec Limb ataxia: Present in two limbs Sensory on face/arms/legs: Mild to moderate sensory loss, can tell touch Best language: No aphasia, normal Dysarthria: Mild to mod,some slurring Extinction or inattention: No abnormality Total NIH Stroke scale score: 10 Course Orders Ordered: ED Orders 11/10/18 16:37 CT angio head and neck Stat CT head/brain wo con Stat XR chest 1V Stat EKG-12 Lead Stat 11/10/18 16:40 Basic Metabolic Panel Stat Complete Blood Count AUTO DIFF Stat Partial Thromboplastin Time Stat Prothrombin Time INR Stat Troponin I Stat 11/10/18 17:06 Urine Drug Screen, Rapid Stat Sodium Chloride (Normal Saline 0.9%) 1,000 mls @ 150 mls/hr IV CONT FAITH Last Infusion: 11/10/18 19:02 Dose: 150 mls/hr Admin: 11/10/18 17:17 Dose: 150 mls/hr Discontinued Medications Aspirin (Aspirin Chew) 324 mg PO NOW ONE Stop: 11/10/18 17:03 Last Admin: 11/10/18 17:17 Dose: 324 mg Potassium Chloride (Potassium Chloride) 40 meq PO NOW ONE Stop: 11/10/18 18:05 Last Admin: 11/10/18 18:23 Dose: 40 meq Vital Signs - 8 hr 11/10/18 16:30 11/10/18 16:50 11/10/18 17:29 Temperature 98.1 F Pulse Rate 64 57 L 63 Respiratory Rate 19 21 15 Blood Pressure 127/52 L Blood Pressure [Right Arm] 118/56 L 125/61 Pulse Oximetry 94 96 94 11/10/18 17:48 11/10/18 18:00 11/10/18 18:55 Temperature Pulse Rate 58 L 57 L 55 L Respiratory Rate 19 18 16 Blood Pressure Blood Pressure [Right Arm] 112/55 L 110/42 L 107/45 L Pulse Oximetry 95 94 MDM - Neuro Symptoms/Deficit Lab Data Attestation: I reviewed the patient's lab results. Result diagrams: 11/10/18 16:40 11/10/18 16:40 Lab Results 11/10/18 11/10/18 11/10/18 Range/Units 16:40 16:40 16:40 WBC 12.2 H (4.5-11.0) X10^3/uL RBC 5.63 (4.5-5.9) X10^6/uL Hgb 13.3 L (13.5-17.5) g/dL Hct 43.1 (41-53) % MCV 76.6 L (80-100) fL MCH 23.6 L (26-34) PG MCHC 30.8 (30-36) % RDW 17.3 H (11.6-14.8) % Plt Count 316 (150-400) X10^3/uL Neut % (Auto) 66.2 (50-75) % Lymph % (Auto) 19.0 L (25-40) % [place] % (Auto) 10.8 (3-14) % Eos % (Auto) 3.4 (2-4) % Baso % (Auto) 0.6 (0-2) % Neut # (Auto) 8000 H (3818-6196) /uL Lymph # (Auto) 2300 (7434-8480) /uL [place] # (Auto) 1300 H (0-900) /uL Eos # (Auto) 400 (0-450) /uL Baso # (Auto) 100 (0-100) /uL PT 12.5 (10.1-12.7) SECONDS INR 1.1 (0.9-1.3) APTT 32 (26.4-36.2) SECONDS Sodium 138 (137-145) mmol/L Potassium 3.0 L (3.4-5.1) mmol/L Chloride 96 L (98-107) mmol/L Carbon Dioxide 31 (22-32) mmol/L BUN 18 (9-20) mg/dL Creatinine 0.80 (0.66-1.25) mg/dL Estimated GFR > 60.0 (>60) mL/min BUN/Creatinine Ratio 22.5 H (6-22) Glucose 158 H (80-110) mg/dL Calcium 9.4 (8.4-10.2) mg/dL Troponin I < 0.012 (0.01-0.034) ng/mL Imaging Data CT scan - head: Radiologist's impression: [facility] DATE TYPE STATUS AUTHOR Hx 11/10/18 16:37 Jessica Sanchez 08/26/18 17:38 Benny Linares 08/26/18 14:22 Michelle Vazquez 08/26/18 13:08 Trell Cutler 08/26/18 13:06 Bridgette Girard 07/15/18 07:19 Memo Denson 05/15/18 00:00 Michelle Vazquez Danny C 63, 1955 REG ER, ED.LOC - Main ED: R01 140.3kg Neuro Symptoms/Deficit Search Chart NF - Not included in interaction checking Anaphylaxis ONSET Today 16:50 Joey May 63 M [address] [address] [address] Scan Report Signed Patient: Joey May CMR#: [id number] : 5Acct:[id number] Age/Sex: 63 / MDate of Service: 11/10/18 Loc: ED Accession Number: [id number] Procedure: CT head/brain wo con Ordering Provider: Shona Wagner D.O. PROCEDURE: CT HEAD/BRAIN WO CON INDICATIONS: Code stroke-possible TPA TECHNIQUE: Noncontrast 4.5 mm thick angled axial sections acquired from the foramen magnum to the vertex, with coronal and sagittal reformats. For radiation dose reduction, the following was used: automated exposure control, adjustment of mA and/or kV according to patient size. COMPARISON: CT, BRAIN W/O CONTRAST, 12/20/2007, 17:28. [facility], MR, MR HEAD/BRAIN WO CON, 08/26/2018, 14:59. [facility], CT, CT HEAD/BRAIN WO CON, 08/26/2018, 13:06. FINDINGS: Image quality: Excellent. CSF spaces: Basal cisterns are patent. No extra-axial fluid collections. The ventricles are symmetric in size and shape. Brain: As identified on prior exam, there is low attenuation within the left temporal lobe with dependent focus of hyperdensity. Overall appearance has not changed compared to prior exam.. There is cerebral volume loss for age, with resultant ventricular and sulcal prominence. There are periventricular and deep white matter chronic small vessel ischemic changes. There is intracranial internal carotid artery atherosclerosis. Skull and face: Calvarium and visualized facial bones appear intact, without suspicious lesions. Sinuses: Visualized sinuses and mastoids are clear. IMPRESSION: 1. No acute intracranial process. 2. Mild chronic microvascular ischemic changes. 3. Persistent low-attenuation focus with dependent hyperdensity in the left temporal lobe. As previously noted, this can represent a cystic focus with areas of dependent calcification or chronic hemorrhage. This is suspected to be related to to gliosis secondary to prior gamma knife surgery for AVM, given stability over multiple prior exams. Dictated by: Jessica Sanchez M.D. on 11/10/2018 at 16:46 Approved by: Jessica Sanchez M.D. on 11/10/2018 at 16:50 Chest x-ray: Radiologist's impression: Joey May M [address] [address] XRay Report Signed Patient: Joey May CMR#: [id number] : 5Acct:[id number] Age/Sex: 63 / MDate of Service: 11/10/18 Loc: ED Accession Number: [id number] Procedure: XR chest 1V Ordering Provider: Shona Wagner D.O. PROCEDURE: XR CHEST 1V INDICATIONS: cva TECHNIQUE: One view of the chest was acquired. COMPARISON: [facility], , XR CHEST 1V, 08/26/2018, 13:57. FINDINGS: Surgical changes and devices: Pacemaker. Lungs and pleura: Poor inspiratory effort is present. Coarsened appearance of bilateral pulmonary opacities are present relatively unchanged. Mediastinum: Mediastinal contours appear normal. Heart size is normal. Bones and chest wall: No suspicious bony lesions. Overlying soft tissues appear unremarkable. IMPRESSION: Poor inspiratory effort with coarsened appearance of pulmonary opacities. This could represent atelectasis or developing edema. Dictated by: Jessica Sanchez M.D. on 11/10/2018 at 17:18 Approved by: Jessica Sanchez M.D. on 11/10/2018 at 17:18 CTA head: Radiologist's impression: Joey May M [address] [address] [address] Scan Report Signed Patient: Joey May CMR#: [id number] : 5Acct:[id number] Age/Sex: 63 / MDate of Service: 11/10/18 Loc: ED Accession Number: [id number] Procedure: CT angio head and neck Ordering Provider: Shona Wagner D.O. PROCEDURE: CT ANGIO HEAD AND NECK INDICATIONS: weakness TECHNIQUE: Pre-contrast 4.5 mm thick sections acquired from the foramen magnum to the vertex. After the administration of intravenous contrast, 1 mm thick sections acquired from the aortic arch through the [place]. Post-contrast 4.5 mm thick sections then re-acquired from the foramen magnum to the vertex. 3-dimensional zbulbyx-rtrplmhjl-rzhphiwcgb (MIP) and/or volume rendering reformats were acquired of the central intracranial vasculature and neck separately. COMPARISON: [facility], MR, MR HEAD/BRAIN WO CON, 08/26/2018, 14:59. [facility], CT, CT HEAD/BRAIN WO CON, 11/10/2018, 16:37. [facility], CT, CT ANGIO HEAD AND NECK, 08/26/2018, 18:03. FINDINGS: Image quality: Excellent. BRAIN: CSF spaces: Ventricles are normal in size and shape. Basal cisterns are patent. No extra-axial fluid collections. Brain: There is again seen a cystic left temporal lobe lesion, with mild surrounding generalized enhancement, which is better seen on prior MRI. No midline shift. No intracranial bleeds or masses. Torres-white matter interface appears intact. Skull and face: Calvarium and facial bones appear intact, without suspicious lesions. Orbits appear normal. Note is made of bilateral lens replacements. Sinuses: Sinuses and mastoids are clear. HEAD CT ANGIOGRAPHY: Anterior circulation: Intracranial internal carotid arteries are normal in size and flow. There is a diminutive right A1 segment, with a corresponding robust left A1 segment. This is considered to be a normal developmental variant of the [place], of typically no clinical consequence. The flow within the paired anterior cerebral arteries is otherwise normal and symmetric. The flow within the middle cerebral arteries is normal and symmetric. The anterior communicating artery is seen. No aneurysms are seen. Posterior circulation: There are vertebral artery is dominant the left. The left vertebral artery does not clearly join with the right vertebral artery to form the basilar artery, and yet largely terminates in a left posterior inferior cerebellar artery. The basilar artery is unremarkable. There is a prominent right posterior communicating artery seen, with an accompanying diminutive right P1 segment. This is attributed to a type origin of the right posterior cerebral artery, which is considered to be a normal developmental variant of typically no clinical consequence. Flow within the posterior cerebral arteries is normal and symmetric. No aneurysms are seen. NECK CT ANGIOGRAPHY: Carotid system: The great vessels demonstrate a conventional anatomy as they arise from the aortic arch. The origins of the common carotid arteries appear patent. The common carotid arteries demonstrate normal caliber and courses. The bifurcation regions demonstrate atherosclerotic irregularity and calcification. No hemodynamically significant stenosis is identified. Posterior circulation: The origins of the vertebral arteries both appear widely patent. The more superior extracranial portions of both vertebral arteries also demonstrate normal courses and calibers. They join to form a normal appearing basilar artery. Soft tissues: Visualized neck soft tissues demonstrate no suspicious abnormalities. Incidental note is made of an azygos lobe. Bones: No suspicious bony lesions. Visualized cervical spine appears normally aligned. Age-appropriate bony degenerative changes are seen. IMPRESSION: No definite, acute abnormality can be seen. No significant change compared to the prior angiogram dated 08/26/18. Atherosclerotic calcification and irregularity is seen involving the carotid bifurcations, yet without a hemodynamically significant stenosis seen on either side. Cystic left temporal lobe lesion seen, which is consistent with the given history of a gamma knife treated AVM. Developmental anomalies are incidentally noted, including: Diminutive right A1 segment with a corresponding robust left A1 segment type origin of the right posterior cerebellar artery The left vertebral artery largely terminates in the left posterior inferior cerebellar artery does not clearly join with the right vertebral artery to form the basilar artery Azygos lobe Any quantitative measurements of stenosis were performed using NASCET criteria. Dictated by: John Art M.D. on 11/10/2018 at 16:29 Approved by: John Art M.D. on 11/10/2018 at 16:36 ECG Data Attestation: I personally reviewed and interpreted this ECG as follows: Interpretation: Sinus bradycardia rate of 56 P are 155 [place] 93 and a QTC of 413. Nonspecific ST change. [facility] Narrative Medical decision making narrative: Patient received aspirin 324 mg after initial head CT is negative for acute bleed. Spoke with Dr. oG through tele Stroke at [facility]. They did recommend a CT angiography. Patient is not a tPA candidate with the gamma knife history but would potentially be for localized intervention. If patient had an M1 or acute large vessel thrombosis they would potentially transfer him down. He suspected may be a smaller vessel thrombosis which would not show on angiography, this would not be a candidate for intervention. Patient's lab work does show a potassium at 3.0 but unlikely to be the main source of his symptoms, chloride 96, troponin negtative, Slightly elevated white count. Patient speech is improved in department, facial droop present but improved. Still feels quite weak. Patient BP well controlled in department with out medications. Plan for observation, accepted by Dr. Wiggins. Updated patient on current plan and he is comfortable with this. Discharge Plan Departure Patient Disposition: Admitted as Observation Clinical Impression: Acute CVA (cerebrovascular accident) Discharge Date/Time: 11/10/18 19:23 Interventions: ED Discharge Assessment Last Done: 11/10/18 19:03 Admit Date/Time: 11/10/18 18:35 Admit Provider: Shena Wiggins
[2018-11-10 16:48] LABS: Add Manual Diff / Slide Review NO; Basophils Absolute Auto 100 /uL (0-100); Basophils Percent Auto 0.6 % (0-2); Eosinophils Absolute Auto 400 /uL (0-450); Eosinophils Percent Auto 3.4 % (2-4); Hematocrit 43.1 % (41-53); Hemoglobin 13.3 g/dL (13.5-17.5); Lymphocytes Absolute Auto 2300 /uL (1100-4500); Mean Corpuscular HGB Conc 30.8 % (30-36); Mean Corpuscular Hemoglobin 23.6 PG (26-34); Mean Corpuscular Volume 76.6 fL (80-100); Monocytes Absolute Auto 1300 /uL (0-900); Monocytes Percent Auto 10.8 % (3-14); Neutrophils Absolute Auto 8000 /uL (1500-7000); Neutrophils Percent Auto 66.2 % (50-75); Platelet Count 316 X10^3/uL (150-400); Red Blood Cell Count 5.63 X10^6/uL (4.5-5.9); Red Cell Distribution Width 17.3 % (11.6-14.8); White Blood Cell Count 12.2 X10^3/uL (4.5-11.0)
[2018-11-10 17:03] LABS: BUN Creatinine Ratio 22.5 (6-22); Blood Urea Nitrogen 18 mg/dL (9-20); Calcium 9.4 mg/dL (8.4-10.2); Carbon Dioxide 31 mmol/L (22-32); Chloride 96 mmol/L (98-107); Estimated Glomerular Filt Rate > 60.0 mL/min (>60); Glucose 158 mg/dL (80-110); HEMOLYSIS < 15 (0-50); Sodium 138 mmol/L (137-145)
[2018-11-10 17:04] LABS: INR 1.1 (0.9-1.3); Prothrombin Time 12.5 SECONDS (10.1-12.7)
[2018-11-10 17:06] LABS: PTT Partial Thromboplastin Tim 32 SECONDS (26.4-36.2)
--- NOTE | 2018-11-10 17:07 | ED_ITS ---
HPI - Neuro Symptoms/Deficit General Chief Complaint: Neuro Symptoms/Deficit Stated Complaint: Stroke Time Seen by Provider: 11/10/18 16:37 Source: patient, EMS and old records reviewed Mode of arrival: EMS Limitations: no limitations History of Present Illness HPI Narrative: This is a 63-year-old male comes to the emergency department with complaint of weakness, facial droop and difficulty with speech. Patient states that his symptoms started sometime after 1. He went on break at 2:00 p.m and. he was having some weakness but not to the extent he is now. He was at work at the [employer]. They evaluated him, contacted EMS and he was transported here. Patient was interacting with [employer] staff by writing and was not able to talk his speech is improved over time but he is still slurred. He has had some facial droop on the left. He has had this intermittently in the past and states that they have not found the exact cause but think it might be muscle spasm. The weakness in his arm and leg is new. He has not had that recently He states he was told he may have had a TIA in the past. 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 He is not on any asa or blood thinners. Related Data Home Medications Medication Instructions Recorded Confirmed atenolol 50 mg PO DAILY #0 12/16/12 08/26/18 finasteride 5 mg PO DAILY #0 12/16/12 08/26/18 allopurinol 300 mg tablet 300 mg PO DAILY 05/15/18 08/26/18 hydrochlorothiazide 25 mg tablet 25 mg PO DAILY 05/15/18 08/26/18 montelukast 10 mg tablet 10 mg PO QPM 05/15/18 08/26/18 tamsulosin 0.4 mg capsule 0.4 mg PO DAILY 05/15/18 08/26/18 Blue Emu 1 applic TOPICAL PRN PRN 08/26/18 08/26/18 omeprazole 40 mg PO BID 08/26/18 08/26/18 Previous Rx's Medication Instructions Recorded celecoxib 200 mg capsule 200 mg PO DAILY #90 cap 08/14/18 Allergies Allergy/AdvReac Type Severity Reaction Status Date / Time losartan Allergy Severe Anaphylaxis Verified 11/10/18 16:53 carbamazepine [CARBAMAZEPINE] Allergy Mild Verified 11/10/18 16:53 lamotrigine [LAMOTRIGINE] Allergy Mild Verified 11/10/18 16:53 Review of Systems Review of Systems ROS Unobtainable: All systems reviewed & are unremarkable except as noted in HPI and below Constitutional Reports headache(s) Eyes Denies loss of vision ENT Ears, Nose, Mouth, and Throat: Denies dizziness, Reports headache(s) and Reports other (facial droop) Cardiovascular Denies chest pain, Denies diaphoresis, Denies syncope, Denies rapid heart rate, Denies irregular heart rhythm, Denies leg edema, Denies lightheadedness, Denies palpitations, Denies dyspnea, Denies dyspnea on exertion and Denies orthopnea Respiratory Denies change in phlegm color, Denies chest congestion, Denies cough, Denies dyspnea, Denies dyspnea on exertion and Denies wheezing Gastrointestinal Gastrointestinal: Denies abdominal pain, Denies change in bowel habits, Denies diarrhea, Denies nausea and Denies vomiting Genitourinary Denies dysuria, Denies urinary frequency and Denies urinary hesitancy Musculoskeletal Reports abnormal gait, Reports muscle weakness (left arm/leg), Denies numbness and Denies tingling Neurologic Reports as per HPI, Reports abnormal speech, Reports abnormal gait, Denies confusion, Denies dizziness, Denies syncope, Reports headache(s), Reports focal weakness (left arm/leg), Denies loss of vision, Denies numbness, Denies seizure- like activity, Denies sensory deficit, Denies tingling and Denies paresthesias Psychiatric Denies confusion Endocrine Denies palpitations Allergic/Immunologic Denies wheezing [facility] Medical History Status post gamma knife treatment (Chronic) AVM (arteriovenous malformation) (Chronic) Social History Smoking Status: Former smoker Social History Smoking Status: Former smoker Exam Narrative Exam Narrative: GEN: Well-nourished, obese male, alert and oriented x 3, pat ient appears to be in moderate distress. HEENT: Atraumatic, pupils are equal round reactive to light, extraocular movements are intact, nares are clear, TMs are clear with no fluid, there is no conjunctival pallor. Throat is clear without any exudates, erythema, tonsillar enlargement or uvular deviation, left lower facial droop. HEART: Regular rate and rhythm without murmur, clicks, rubs. Pulses are equal in upper and lower extremities LUNGS:Lungs clear to auscultation, no wheezes, rales, crackles, chest moves symmetrically ABD:bowel sounds normal, soft, non-tender, no guarding, rebound, rigidity, no masses noted, no hepatosplenomegaly :No CVA tenderness MSCL: Non-tender, no muscle atrophy, patient does lift up his left upper extremity as well as leg but drifts back down to the bed he is not able to hold it up. He does not have any issues with the right upper extremity or leg. He a lso has difficulty with finger-nose finger on the left thumb as well as heel- ann he is not able to accomplish this. He is on the right. He states maybe some mild decrease in sensation although it is difficult for him to tell. NEURO:CN 2-12 intact, sensation normal, reflexes 2/4 upper and lower ex tremities. see above. Patient has some mild dysarthria. No aphasia. Initial Vital Signs Initial Vital Signs: Vital Signs Temperature 98.1 F 11/10/18 16:30 Pulse Rate 64 11/10/18 16:30 Respiratory Rate 19 11/10/18 16:30 Blood Pressure 127/52 L 11/10/18 16:30 Pulse Oximetry 94 11/10/18 16:30 Scores NIH Stroke Scale Level of Conciousness: Alert, keenly responsive Ask month/age: Answers both questions correctly. Open/close eyes, close hand: Performs both tasks correctly Best gaze horizontal: Normal Visual savage: No visual loss Facial palsy: Partial paralysis, total or near total paralysis of lower face Left arm drift: Some effort against gravity, cannot maintain, drifts down to bed Right arm drift: No drift for full 10 sec Left leg drift: Some effort against gravity, cannot maintain, drifts down to bed Right leg drift: No drift for full 10 sec Limb ataxia: Present in two limbs Sensory on face/arms/legs: Mild to moderate sensory loss, can tell touch Best language: No aphasia, normal Dysarthria: Mild to mod,some slurring Extinction or inattention: No abnormality Total NIH Stroke scale score: 10 Course Orders Ordered: ED Orders 11/10/18 16:37 CT angio head and neck Stat CT head/brain wo con Stat XR chest 1V Stat EKG-12 Lead Stat 11/10/18 16:40 Basic Metabolic Panel Stat Complete Blood Count AUTO DIFF Stat Partial Thromboplastin Time Stat Prothrombin Time INR Stat Troponin I Stat 11/10/18 17:06 Urine Drug Screen, Rapid Stat Sodium Chloride (Normal Saline 0.9%) 1,000 mls @ 150 mls/hr IV CONT FAITH Last Infusion: 11/10/18 19:02 Dose: 150 mls/hr Admin: 11/10/18 17:17 Dose: 150 mls/hr Discontinued Medications Aspirin (Aspirin Chew) 324 mg PO NOW ONE Stop: 11/10/18 17:03 Last Admin: 11/10/18 17:17 Dose: 324 mg Potassium Chloride (Potassium Chloride) 40 meq PO NOW ONE Stop: 11/10/18 18:05 Last Admin: 11/10/18 18:23 Dose: 40 meq Vital Signs - 8 hr 11/10/18 16:30 11/10/18 16:50 11/10/18 17:29 Temperature 98.1 F Pulse Rate 64 57 L 63 Respiratory Rate 19 21 15 Blood Pressure 127/52 L Blood Pressure [Right Arm] 118/56 L 125/61 Pulse Oximetry 94 96 94 11/10/18 17:48 11/10/18 18:00 11/10/18 18:55 Temperature Pulse Rate 58 L 57 L 55 L Respiratory Rate 19 18 16 Blood Pressure Blood Pressure [Right Arm] 112/55 L 110/42 L 107/45 L Pulse Oximetry 95 94 MDM - Neuro Symptoms/Deficit Lab Data Attestation: I reviewed the patient's lab results. Result diagrams: 11/10/18 16:40 11/10/18 16:40 Lab Results 11/10/18 11/10/18 11/10/18 Range/Units 16:40 16:40 16:40 WBC 12.2 H (4.5-11.0) X10^3/uL RBC 5.63 (4.5-5.9) X10^6/uL Hgb 13.3 L (13.5-17.5) g/dL Hct 43.1 (41-53) % MCV 76.6 L (80-100) fL MCH 23.6 L (26-34) PG MCHC 30.8 (30-36) % RDW 17.3 H (11.6-14.8) % Plt Count 316 (150-400) X10^3/uL Neut % (Auto) 66.2 (50-75) % Lymph % (Auto) 19.0 L (25-40) % Gage % (Auto) 10.8 (3-14) % Eos % (Auto) 3.4 (2-4) % Baso % (Auto) 0.6 (0-2) % Neut # (Auto) 8000 H (7882-0195) /uL Lymph # (Auto) 2300 (7220-0224) /uL Gage # (Auto) 1300 H (0-900) /uL Eos # (Auto) 400 (0-450) /uL Baso # (Auto) 100 (0-100) /uL PT 12.5 (10.1-12.7) SECONDS INR 1.1 (0.9-1.3) APTT 32 (26.4-36.2) SECONDS Sodium 138 (137-145) mmol/L Potassium 3.0 L (3.4-5.1) mmol/L Chloride 96 L (98-107) mmol/L Carbon Dioxide 31 (22-32) mmol/L BUN 18 (9-20) mg/dL Creatinine 0.80 (0.66-1.25) mg/dL Estimated GFR > 60.0 (>60) mL/min BUN/Creatinine Ratio 22.5 H (6-22) Glucose 158 H (80-110) mg/dL Calcium 9.4 (8.4-10.2) mg/dL Troponin I < 0.012 (0.01-0.034) ng/mL Imaging Data CT scan - head: Radiologist's impression: Chart Viewer Diagnostics DATE TYPE STATUS AUTHOR Hx 11/10/18 16:37 Jessica Sanchez 08/26/18 17:38 Benny Linares 08/26/18 14:22 Michelle Vazquez 08/26/18 13:08 Trell uCtler 08/26/18 13:06 Bridgette Girard 07/15/18 07:19 Memo Denson 05/15/18 00:00 Michelle Vazquez Danny C 63, 1955 REG ER, ED.LOC - Main ED: R01 140.3kg Neuro Symptoms/Deficit Search Chart NF - Not included in interaction checking Anaphylaxis ONSET Today 16:50 Joey May 63 M [address] [address] [address] Scan Report Signed Patient: Joey May CMR#: [id number] : 5Acct:[id number] Age/Sex: 63 / MDate of Service: 11/10/18 Loc: ED Accession Number: [id number] Procedure: CT head/brain wo con Ordering Provider: Shona Wagner D.O. PROCEDURE: CT HEAD/BRAIN WO CON INDICATIONS: Code stroke-possible TPA TECHNIQUE: Noncontrast 4.5 mm thick angled axial sections acquired from the foramen magnum to the vertex, with coronal and sagittal reformats. For radiation dose reduction, the following was used: automated exposure control, adjustment of mA and/or kV according to patient size. COMPARISON: CT, BRAIN W/O CONTRAST, 12/20/2007, 17:28. [facility], MR, MR HEAD/BRAIN WO CON, 08/26/2018, 14:59. [facility], CT, CT HEAD/BRAIN WO CON, 08/26/2018, 13:06. FINDINGS: Image quality: Excellent. CSF spaces: Basal cisterns are patent. No extra-axial fluid collections. The ventricles are symmetric in size and shape. Brain: As identified on prior exam, there is low attenuation within the left temporal lobe with dependent focus of hyperdensity. Overall appearance has not changed compared to prior exam.. There is cerebral volume loss for age, with resultant ventricular and sulcal prominence. There are periventricular and deep white matter chronic small vessel ischemic changes. There is intracranial internal carotid artery atherosclerosis. Skull and face: Calvarium and visualized facial bones appear intact, without suspicious lesions. Sinuses: Visualized sinuses and mastoids are clear. IMPRESSION: 1. No acute intracranial process. 2. Mild chronic microvascular ischemic changes. 3. Persistent low-attenuation focus with dependent hyperdensity in the left temporal lobe. As previously noted, this can represent a cystic focus with areas of dependent calcification or chronic hemorrhage. This is suspected to be related to to gliosis secondary to prior gamma knife surgery for AVM, given stability over multiple prior exams. Dictated by: Jessica Sanchez M.D. on 11/10/2018 at 16:46 Approved by: Jessica Sanchez M.D. on 11/10/2018 at 16:50 Chest x-ray: Radiologist's impression: Joey May 63 M [address] [address] XRay Report Signed Patient: Joey May CMR#: [id number] : 5Acct:[id number] Age/Sex: 63 / MDate of Service: 11/10/18 Loc: ED Accession Number: [id number] Procedure: XR chest 1V Ordering Provider: Shona Wagner D.O. PROCEDURE: XR CHEST 1V INDICATIONS: cva TECHNIQUE: One view of the chest was acquired. COMPARISON: [facility], , XR CHEST 1V, 08/26/2018, 13:57. FINDINGS: Surgical changes and devices: Pacemaker. Lungs and pleura: Poor inspiratory effort is present. Coarsened appearance of bilateral pulmonary opacities are present relatively unchanged. Mediastinum: Mediastinal contours appear normal. Heart size is normal. Bones and chest wall: No suspicious bony lesions. Overlying soft tissues appear unremarkable. IMPRESSION: Poor inspiratory effort with coarsened appearance of pulmonary opacities. This could represent atelectasis or developing edema. Dictated by: Jessica Sacnhez M.D. on 11/10/2018 at 17:18 Approved by: Jessica Sanchez M.D. on 11/10/2018 at 17:18 CTA head: Radiologist's impression: Joey May 63 M [address] [address] [address] Scan Report Signed Patient: Joey May CMR#: [id number] : 5Acct:[id number] Age/Sex: 63 / MDate of Service: 11/10/18 Loc: ED Accession Number: [id number] Procedure: CT angio head and neck Ordering Provider: Shona Wagner D.O. PROCEDURE: CT ANGIO HEAD AND NECK INDICATIONS: weakness TECHNIQUE: Pre-contrast 4.5 mm thick sections acquired from the foramen magnum to the vertex. After the administration of intravenous contrast, 1 mm thick sections acquired from the aortic arch through the [place] of [place]. Post-contrast 4.5 mm thick sections then re- acquired from the foramen magnum to the vertex. 3-dimensional maximum-intensity- projection (MIP) and/or volume rendering reformats were acquired of the central intracranial vas culature and neck separately. COMPARISON: [facility], MR, MR HEAD/BRAIN WO CON, 08/26/2018, 14:59. [facility], CT, CT HEAD/BRAIN WO CON, 11/10/2018, 16:37. [facility], CT, CT ANGIO HEAD AND NECK, 08/26/2018, 18:03. FINDINGS: Image quality: Excellent. BRAIN: CSF spaces: Ventricles are normal in size and shape. Basal cisterns are patent. No extra-axial fluid collections. Brain: There is again seen a cystic left temporal lobe lesion, with mild surrounding generalized enhancement, which is better seen on prior MRI. No midline shift. No intracranial bleeds or masses. Torres-white matter interface appears intact. Skull and face: Calvarium and facial bones appear intact, without suspicious lesions. Orbits appear normal. Note is made of bilateral lens replacements. Sinuses: Sinuses and mastoids are clear. HEAD CT ANGIOGRAPHY: Anterior circulation: Intracranial internal carotid arteries are normal in size and flow. There is a diminutive right A1 segment, with a corresponding robust left A1 segment. This is considered to be a normal developmental variant of the [place], of typically no clinical consequence. The flow within the paired anterior cerebral arteries is otherwise normal and symmetric. The flow within the middle cerebral arteries is normal and symmetric. The anterior communicating artery is seen. N o aneurysms are seen. Posterior circulation: There are vertebral artery is dominant the left. The left vertebral artery does not clearly join with the right vertebral artery to form the basilar artery, and yet largely terminates in a left posterior inferior cerebellar artery. The basilar artery is unremarkable. There is a prominent right posterior communicating artery seen, with an accompanying diminutive right P1 segment. This is attributed to a type origin of the right posterior cerebral artery, which is considered to be a normal developmental variant of typically no clinical consequence. Flow within the posterior cerebral arteries is normal and symmetric. No aneurysms are seen. NECK CT ANGIOGRAPHY: Carotid system: The great vessels demonstrate a conventional anatomy as they arise from the aortic arch. The origins of the common carotid arteries appear patent. The common carotid arteries demonstrate normal caliber and courses. The bifurcation regions demonstrate atherosclerotic irregularity and calcification. No hemodynamically significant stenosis is identified. Posterior circulation: The origins of the vertebral arteries both appear widely patent. The more superior extracranial portions of both vertebral arteries also demonstrate normal courses and calibers. They join to form a normal appearing basilar artery. Soft tissues: Visualized neck soft tissues demonstrate no suspicious abnormalities. Incidental note is made of an azygos lobe. Bones: No suspicious bony lesions. Visualized cervical spine appears normally aligned. Age-appropriate bony degenerative changes are seen. IMPRESSION: No definite, acute abnormality can be seen. No significant change compared to the prior angiogram dated 08/26/18. Atherosclerotic calcification and irregularity is seen involving the carotid bifurcations, yet without a hemodynamically significant stenosis seen on either side. Cystic left temporal lobe lesion seen, which is consistent with the given history of a gamma knife treated AVM. Developmental anomalies are incidentally noted, including: Diminutive right A1 segment with a corresponding robust left A1 segment type origin of the right posterior cerebellar artery The left vertebral artery largely terminates in the left posterior inferior cerebellar artery does not clearly join with the right vertebral artery to form the basilar artery Azygos lobe Any quantitative measurements of stenosis were performed using NASCET criteria. Dictated by: John Art M.D. on 11/10/2018 at 16:29 Approved by: John Art M.D. on 11/10/2018 at 16:36 ECG Data Attestation: I personally reviewed and interpreted this ECG as follows: Interpretation: Sinus bradycardia rate of 56 P are 155 [place] 93 and a QTC of 413. Nonspecific ST change. [facility] Narrative Medical decision making narrative: Patient received aspirin 324 mg after initial head CT is negative for acute bleed. Spoke with Dr. Go through tele Stroke at [facility]. They did recommend a CT angiography. Patient is not a tPA candidate with the gamma knife history but would potentially be for localized intervention. If patient had an M1 or acute large vessel thrombosis they would potentially transfer him down. He suspected may be a smaller vessel thrombosis which would not show on angiography, this would not be a candidate for inte rvention. Patient's lab work does show a potassium at 3.0 but unlikely to be the main source of his symptoms, chloride 96, troponin negtative, Slightly elevated white count. Patient speech is improved in department, facial droop present but improved. Still feels quite weak. Patient BP well controlled in department with out medications. Plan for observation, accepted by Dr. Wiggins. Updated patient on current plan and he is comfortable with this. Discharge Plan Departure Patient Disposition: Admitted as Observation Clinical Impression: Acute CVA (cerebrovascular accident) Discharge Date/Time: 11/10/18 19:23 Interventions: ED Discharge Assessment Last Done: 11/10/18 19:03 Admit Date/Time: 11/10/18 18:35 Admit Provider: Shena Wiggins
[2018-11-10 17:15] LABS: Troponin I < 0.012 ng/mL (0.01-0.034)
[2018-11-10] MEDS: ASPIRIN 81 MG TAB 324 MG PO (17:17)
[2018-11-10] MEDS: SODIUM CHLORIDE 0.9% 1,000 ML 150 ML IV ×2 (17:17→21:56)
[2018-11-10] MEDS: POTASSIUM CHLORIDE 20 MEQ/15 ML UDC 40 MEQ PO (18:23)
--- NOTE | 2018-11-10 20:23 | PC.NURSE ---
Jayashree shift note: Patient admitted to room 231 from ED, awake, alert, and oriented. Up out of bed to bedside commode, 2 Person Max assist with FWW/gait belt. High fall risk precautions initiated. Bed active and call light within reach. NIH 6. Oriented to room, environment and plan of care. Awaiting for Hospitalist for further orders.
[2018-11-11] MEDS: SODIUM CHLORIDE 0.9% 1,000 ML 100 ML IV ×2 (02:41→07:31)
[2018-11-11 04:00] VITALS: BP 115/57; PULSE 64; RESP 16; TEMP 36.5; O2SAT 94
--- NOTE | 2018-11-11 04:06 | P.HP_ITS ---
History of Present Illness Date Patient Seen: 11/10/18 Time Patient Seen: 20:10 Chief complaint: Stroke Narrative: Joey May is a 63-year-old male patient with a history AVM status post gamma knife treatment, TIA BPH, arrhythmias and obstructive sleep apnea on CPAP who presents to the ER with acute onset of weakness that started between 1 and 2:00 p.m. today. Patient endorse a previous history of left facial ?spasms? that appear as facial drooping clenching the jaw where he states he will be able open his mouth. The patient describes these episodes occurring since his gamma knife and was thought to be seizure activity and started on seizure medicine on escalating doses. The episodes last between 2 minutes and 8 hours in duration affecting only the left side of his face. An EEG was done during the event to confirm that this was not seizure related and his seizure medication was discontinued. With the episodes persisting but less frequent. Today the patient was experienced such an episode however this time it was accompanied with left arm and leg weakness prompting the patient to present to the ER. The patient reports significant bifrontal headache. He does report an episode of elevated blood pressures into the 200 systolic. Patient also has a ZIO cardiac recorder left chest for complaints of arrhythmias of unknown type. The patient has had no syncope dizziness or lightheadedness. He has had difficulty speaking related to the muscular spasms of his face but reports that he has not experienced confusion for chief Ru mentation. Reports no change in visual field or scotoma and has no changes in hearing. He has no neck or back pain. he reports no chest and denies shortness of breath. He has no abdominal pain and denies nausea vomiting, constipation or diarrhea. CT by stroke protocol shows no acute processes but does identify hypodensity in left temporal lobe consistent with location of the patient's AVM treated with gamma knife. On CTA there are no definite changes noted since prior scan on August 26, 2018. Does note atherosclerosis of the carotid bifurcation without hemodynamic stenosis. The exam notes the cyst left temporal lobe status post gamma knife. The patient's CBC is unremarkable. On chemistries found to be hypokalemic with a potassium of 3.0 with good renal function with a BUN of 18 and creatinine is 0.8. His troponin is negative at less than 0.012. Patient History Medical History BPH (benign prostatic hyperplasia) (Acute) Cardiac arrhythmia (Acute) Obstructive sleep apnea on CPAP (Acute) TIA (transient ischemic attack) (Acute) Status post gamma knife treatment (Chronic) AVM (arteriovenous malformation) (Chronic) Social History household members: spouse Smoking Status: Former smoker Family & Social History Family History (Updated 11/11/18 @ 03:55 by ALBERTO Brand) Father Stroke Mother Stroke Social History: household members spouse Prior Living Arrangements House Safety & Behavioral: Feels Safe in Current Yes Environment Been Physically Hurt or No Threatened By a Person Tobacco & Substance use: Smoking Status Former smoker alcohol intake frequency 0-2 drinks per day Substance Use Type does not use Comment: Patient lives in a single family with his . He has a strong family history of cerebral vascular disease with both parents have from strokes. Smoking: Former smoker having quit many years ago Alcohol: Endorses occasional alcohol intake Substance use: Patient denies recreation for pharmaceuticals, verbal or cannabis products. Advanced directives: The patient wishes to be a FULL CODE. He designates his daughter Kadi to be his surrogate decision maker. Meds Home Medications Medication Instructions Recorded Confirmed Type atenolol 100 mg PO DAILY #0 12/16/12 11/11/18 History finasteride 5 mg PO DAILY #0 12/16/12 11/11/18 History allopurinol 300 mg tablet 300 mg PO DAILY 05/15/18 11/11/18 History hydrochlorothiazide 25 mg tablet 25 mg PO DAILY 05/15/18 11/11/18 History montelukast 10 mg tablet 10 mg PO QPM 05/15/18 11/11/18 History tamsulosin 0.4 mg capsule 0.4 mg PO DAILY 05/15/18 11/11/18 History celecoxib 200 mg capsule 200 mg PO DAILY #90 cap 08/14/18 11/11/18 Rx Blue Emu 1 applic TOPICAL PRN PRN 08/26/18 11/11/18 History omeprazole 40 mg PO BID 08/26/18 11/11/18 History amlodipine 10 mg PO DAILY 11/11/18 11/11/18 History clonidine 0.1 mg PO BID 11/11/18 11/11/18 History cyclobenzaprine 10 mg PO TID PRN 11/11/18 11/11/18 History Allergies Allergy/AdvReac Type Severity Reaction Status Date / Time losartan Allergy Severe Anaphylaxis Verified 11/10/18 16:53 carbamazepine [CARBAMAZEPINE] Allergy Mild Verified 11/10/18 16:53 lamotrigine [LAMOTRIGINE] Allergy Mild Verified 11/10/18 16:53 Review of Systems Review of Systems All systems reviewed & are unremarkable except as noted in HPI and below Exam Vital Signs (past 8 hours): - 11/10/18 21:46 11/10/18 23:55 Temperature 98.3 F 98.9 F Pulse Rate 56 L 63 Respiratory Rate 16 16 Blood Pressure 128/63 121/61 Pulse Oximetry 95 95 Oxygen Delivery Method Room Air Narrative Exam Narrative: GENERAL APPEARANCE: well developed, well nourished, mildly uncomfortable appearing HEAD: Asymmetrical facies, left facial drooping, no scalp lesions. EYES: No ptosis NIKKO, visual savage intact to confrontation, sclera non- icteric, extraocular movement intact without nystagmus . EARS: normal external structures, no ear pain NOSE: sinuses non tender to percussion, no rhinorrhea ORAL CAVITY: Difficulty opening mouth, mucosa moist without lesions or exudate, palate normal, tongue in midline. THROAT: Posterior pharynx not visualized NECK/THYROID: neck is very large, supple, no jugular venous distention, no carotid bruit, no thyromegaly, trachea midline. LYMPH NODES: no cervical or supraclavicular lymphadenopathy. SKIN: warm and dry, no suspicious lesions, no rashes, good turgor. HEART: regular rate and rhythm, S1-S2 without murmur, rubs, gallops, brisk capillary refill, no edema LUNGS: Breath sounds diminished globally, no coarseness crackles or wheezing, no cough present CHEST: Symmetrical movement, no accessory muscle use, no pain to AP and lateral compression. ABDOMEN: Soft, obese, exam limited by body habitus, no epigastric or abdominal tenderness on palpation, no guarding or peritoneal signs, no organomegaly BACK: Normal curvature, nontender to palpation EXTREMITIES:Weakness of left arm and left leg, left upper extremity strength is 4/5 left lower extremity is 3/5, right upper and lower extremities are 5/5 NEUROLOGIC: AAO x4, patient with difficulty phonating and articulating words, no ptosis, EOMs intact without nystagmus, shoulder shrug is equal, normal sensation in all extremities PSYCH: alert, cognitive function intact, good eye contact, stable mood with congruent affect Objective Labs Result Diagrams: 11/10/18 16:40 11/10/18 16:40 Labs: Laboratory Results - last 24 hr 11/10/18 11/10/18 04 16:40 16:40 16:40 WBC 12.2 H RBC 5.63 Hgb 13.3 L Hct 43.1 MCV 76.6 L MCH 23.6 L MCHC 30.8 RDW 17.3 H Plt Count 316 Neut % (Auto) 66.2 Lymph % (Auto) 19.0 L [place] % (Auto) 10.8 Eos % (Auto) 3.4 Baso % (Auto) 0.6 Neut # (Auto) 8000 H Lymph # (Auto) 2300 [place] # (Auto) 1300 H Eos # (Auto) 400 Baso # (Auto) 100 PT 12.5 INR 1.1 APTT 32 Sodium 138 Potassium 3.0 L Chloride 96 L Carbon Dioxide 31 BUN 18 Creatinine 0.80 Estimated GFR > 60.0 BUN/Creatinine Ratio 22.5 H Glucose 158 H Calcium 9.4 Troponin I < 0.012 Assessment & Plan Assessment & Plan narrative: The patient is admitted to the hospital related to new hemiparesis and evaluation for stroke. 1. Cerebrovascular accident, acute -the patient presented to the hospital 2.5 hours after onset of his symptoms of left leg and arm weakness. -he has had prior episodes of facial drooping that has been recurrent and found not to be related to seizures or other symptoms of hemiparesis. -[place] Stroke service is consulted by the ER physician, patient is not a candidate for tPA related to gamma knife and CT angio finds no large vessel blockage amenable to intervention. -NIH score 7 upon evaluation, before serial NIH scoring. -will obtain an MR stroke in the morning however patient does have a ZIO night monitor left anterior chest which may or may not be MRI compatible and may need to be discontinued for the assessment. -will obtain an echocardiogram 2. Cardiac arrhythmia, not present on admission, active -patient with unknown cardiac arrhythmia. He has been on atenolol 100 mg daily. -no complaints of chest pain, palpitations or shortness of breath -he has also been on hydrochlorothiazide 25 mg daily and presents with hypokalemia at 3.0 which was treated -will recheck potassium and will check magnesium and replete as indicated. 3. Hypertension, not present on admission, chronic -blood pressure well controlled at 127/52 -will continue patient's atenolol 100 mg daily and amlodipine 10 mg daily will hold clonidine 0.1 mg twice daily -will follow blood pressures and treat as indicated 4. Obstructive sleep apnea on CPAP, present on admission, chronic -patient states he uses CPAP even for short naps -family will bring in CPAP machine from home 5. Benign prostatic hypertrophy, present on admission, chronic -continue patient's home medications of finasteride and tamsulosin The patient is admitted to the hospital due to severity of symptoms and risk complications. Patient's symptoms persist and therefore he is admitted as an inpatient with expected length of stay to be greater than 2 midnights. Scores NIHSS Level of Conciousness: Alert, keenly responsive Ask month/age: Answers both questions correctly. Open/close eyes, close hand: Performs both tasks correctly Best gaze horizontal: Normal Visual savage: No visual loss Facial palsy: Partial paralysis, total or near total paralysis of lower face Left arm drift: Drifts down, not to bed Right arm drift: No drift for full 10 sec Left leg drift: Some effort against gravity, cannot maintain, drifts down to bed Right leg drift: No drift for full 10 sec Limb ataxia: Absent Sensory on face/arms/legs: Normal, no sensory loss Best language: Mild to moderate, slurs some words Dysarthria: Mild to mod,some slurring Extinction or inattention: No abnormality Total NIH Stroke scale score: 7 Quality VTE Deep Vein Thrombosis/Pulmonary Embolism Present on Admission: No
[2018-11-11 05:47] LABS: Add Manual Diff / Slide Review NO; Basophils Absolute Auto 100 /uL (0-100); Basophils Percent Auto 0.6 % (0-2); Eosinophils Absolute Auto 400 /uL (0-450); Eosinophils Percent Auto 4.1 % (2-4); Hematocrit 37.7 % (41-53); Hemoglobin 12.2 g/dL (13.5-17.5); Lymphocytes Absolute Auto 1800 /uL (1100-4500); Lymphocytes Percent Auto 20.2 % (25-40); Mean Corpuscular HGB Conc 32.3 % (30-36); Mean Corpuscular Hemoglobin 24.5 PG (26-34); Mean Corpuscular Volume 75.8 fL (80-100); Monocytes Absolute Auto 900 /uL (0-900); Monocytes Percent Auto 10.3 % (3-14); Neutrophils Absolute Auto 5800 /uL (1500-7000); Neutrophils Percent Auto 64.8 % (50-75); Platelet Count 243 X10^3/uL (150-400); Red Blood Cell Count 4.97 X10^6/uL (4.5-5.9); Red Cell Distribution Width 17.2 % (11.6-14.8)
--- NOTE | 2018-11-11 05:51 | PM.PN.1 ---
Subjective Date Patient Seen: 11/11/18 Interval history: The patient is resting in bed comfortably and in no acute distress. He or she denies headache, ear pain, rhinitis, sore throat, cough, shortness of breath, chest pain, abdominal pain, nausea, vomiting, fever, chills, dysuria, diarrhea or constipation. He or she is voiding and eliminating without difficulty. He or she is up ambulating without or with assistance. Exam Vital Signs (past 8 hours): - 11/10/18 23:55 11/11/18 04:00 Temperature 98.9 F 97.7 F Pulse Rate 63 64 Respiratory Rate 16 16 Blood Pressure 121/61 115/57 L Pulse Oximetry 95 94 Oxygen Delivery Method Room Air Narrative Exam Narrative: General: No acute distress, well-developed, well-nourished, appropriately interactive HEENT: Normocephalic, atraumatic. External ears without defect. Pupils equal, round, and reactive to light and accommodation. Anicteric sclerae, moist conjunctivae, and no lid lag. Oropharynx free of erythema and cobble stoning with moist mucosa. Neck: Supple with full range of motion. No jugular venous distension. No bruits. No lymphadenopathy or thyromegaly. Cardiovascular: Regular rate and rhythm with no murmurs, rubs, or gallops appreciated Pulmonary: Clear to auscultation bilaterally with no crackles, wheezes, or rhonchi. Normal respiratory effort with no use of accessory muscles. Abdomen: Bowel tones present. Soft, nontender, nondistended. No hepatosplenomegaly or masses appreciated. Extremities: No clubbing, cyanosis, or edema. Skin: Normal temperature, turgor, and texture; no rash, ulcers, or subcutaneous nodules appreciated. Neurological: Cranial nerves grossly intact. Normal muscle strength, tone, and bulk. Reflexes, coordination, and sensory function within normal limits. No known gait impairment. Psychiatric: Normal mood and affect. Alert and oriented to person, place, and time. Objective Labs Result Diagrams: 11/10/18 16:40 11/10/18 16:40 Labs: Laboratory Results - last 24 hr 11/10/18 11/10/18 11/10/18 16:40 16:40 16:40 WBC 12.2 H RBC 5.63 Hgb 13.3 L Hct 43.1 MCV 76.6 L MCH 23.6 L MCHC 30.8 RDW 17.3 H Plt Count 316 Neut % (Auto) 66.2 Lymph % (Auto) 19.0 L [place] % (Auto) 10.8 Eos % (Auto) 3.4 Baso % (Auto) 0.6 Neut # (Auto) 8000 H Lymph # (Auto) 2300 [place] # (Auto) 1300 H Eos # (Auto) 400 Baso # (Auto) 100 PT 12.5 INR 1.1 APTT 32 Sodium 138 Potassium 3.0 L Chloride 96 L Carbon Dioxide 31 BUN 18 Creatinine 0.80 Estimated GFR > 60.0 BUN/Creatinine Ratio 22.5 H Glucose 158 H Calcium 9.4 Troponin I < 0.012 Assessment & Plan Assessment & Plan narrative: 1. Cerebrovascular accident, acute -the patient presented to the hospital 2.5 hours after onset of his symptoms of left leg and arm weakness. -he has had prior episodes of facial drooping that has been recurrent and found not to be related to seizures or other symptoms of hemiparesis. -[place] Stroke service is consulted by the ER physician, patient is not a candidate for tPA related to gamma knife and CT angio finds no large vessel blockage amenable to intervention. -NIH score 7 upon evaluation, before serial NIH scoring. 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 -will obtain an echocardiogram 2. Cardiac arrhythmia, not present on admission, active -patient with unknown cardiac arrhythmia. He has been on atenolol 100 mg daily. -no complaints of chest pain, palpitations or shortness of breath -he has also been on hydrochlorothiazide 25 mg daily and presents with hypokalemia at 3.0 which was treated -will recheck potassium and will check magnesium and replete as indicated. 3. Hypertension, not present on admission, chronic -blood pressure well controlled at 127/52 -will continue patient's atenolol 100 mg daily and amlodipine 10 mg daily will hold clonidine 0.1 mg twice daily -will follow blood pressures and treat as indicated 4. Obstructive sleep apnea on CPAP, present on admission, chronic -patient states he uses CPAP even for short naps -family will bring in CPAP machine from home 5. Benign prostatic hypertrophy, present on admission, chronic -continue patient's home medications of finasteride and tamsulosin Quality VTE Deep Vein Thrombosis/Pulmonary Embolism Present on Admission: No
[2018-11-11 05:58] LABS: BUN Creatinine Ratio 18.6 (6-22); Blood Urea Nitrogen 13 mg/dL (9-20); Calcium 8.5 mg/dL (8.4-10.2); Carbon Dioxide 27 mmol/L (22-32); Chloride 100 mmol/L (98-107); Cholesterol 133 mg/dL (140-199); Estimated Glomerular Filt Rate > 60.0 mL/min (>60); Glucose 148 mg/dL (80-110); HDL Cholesterol 37 mg/dL (40-60); HEMOLYSIS < 15 (0-50); LDL Cholesterol Calculated 74 mg/dL (<100); Sodium 136 mmol/L (137-145); Triglycerides 112 mg/dL (35-150)
[2018-11-11 06:10] LABS: Magnesium 1.9 mg/dL (1.6-2.3)
[2018-11-11 06:43] LABS: Thyroid Stimulating Hormone 5.31 uIU/mL (0.47-4.68)
[2018-11-11] MEDS: POTASSIUM CHLORIDE 60 MEQ in SODIUM CHLORIDE 0.9% 500 ML 88.333 ML IV (07:38)
--- NOTE | 2018-11-11 07:45 | ST.IPIE ---
Current Diagnoses Cerebral infarction, unspecified (11/10/18) Past Medical History (Last Reviewed 11/11/18 @ 03:55 by ALBERTO Brand) BPH (benign prostatic hyperplasia) (Acute Medical) Cardiac arrhythmia (Acute Medical) Obstructive sleep apnea on CPAP (Acute Medical) TIA (transient ischemic attack) (Acute Medical) Status post gamma knife treatment (Chronic Medical) AVM (arteriovenous malformation) (Chronic Medical) ST IP Initial Evaluation Report MATERIAL CHECKER Clinical Swallow Evaluation Start: 11/11/18 12:34 Freq: Status: Active Protocol: Document 11/11/18 07:50 TLC (Rec: 11/11/18 13:06 TLC [id number]) Clinical Swallow Evaluation Session Time Visit Start Time 07:45 Visit Stop Time 08:25 Total Visit Minutes 40 Visit Information Visit Number 1 Referral Referring Physician Yogi DOMINGUEZ Reason for Referral Stroke Protocol Setting Assessment Location Acute Care Visit Type Note Type Initial Evaluation Next Note Type Next Note Type Treatment Note Patient Information Identification Type Name History Joey is a 63 year old male who was admitted for stroke like symptoms including left facial droop, left arm and left leg weakness. He has a history of a TIA in August of this year and Arteriovenous Malformation (AVM) with gamma knife treatment years ago. Since his AVM treatment, he has experienced many episodes of left sided facial droop which he describes as muscle spasms. He states they can be as fleeting as 2 minutes or last as long as 8 hours. Imaging did not show acute infarct. Subjective Observations Joey was lying in bed awake, eager to eat. His was present in the room. Paper and pen were present on his bedside tray; however, he did not appear to have difficulty with communication during small talk. Patient complained on left arm weakness, but was able to self-feed. Evaluation Liquids Trialed Ice Chips Thin Solids Trialed Puree Mechanical Soft Regular Administration Type Self-Feeding Oral Impairment Mildly Impaired Oral Phase Comments Oral [facility] exam revealed moderately reduced lingual range of motion (unable to lateralize to left buccal cavity). No other oral motor impairments observed. Bolus acceptance and manipulation were within functional limits for all textures. No oral residue observed; however, patient is at increased risk for left sided pocketing given weakness and decreased range of motion . Patient education was provided regarding compensatory strategies in the presence of lingual weakness including alternating liquids/ solids and use of a finger sweep to check for and clear oral residue as needed. Pharyngeal Impairment WNL Pharyngeal Phase Comments Hyolaryngeal elevation was present on palpation. Throat clear and cough were strong and productive. Patient consumed multiple sips of water (single and consecutive) , bites of puree, mechanical soft and regular textures without signs or symptoms of aspiration. Findings Dysphagia Type Oral Rehabilitation Potential Excellent Impressions Patient presents with mild oral phase dysphagia due to left sided facial droop and inability to lateralize tongue to left buccal cavity for effective lingual sweep. No signs of pharyngeal dysphagia observed. He was receptive to recommended compensatory strategies. Prognosis is excellent. Diet Recommendations Liquids Order Thin Diet Order Regular Medication Recommendations As Tolerated Aspiration Precautions Recommended Precautions Upright at 90 Degrees Alternate Liquids/Solids Check for Pocketing Treatment Plan Placement Recommendations after Home Discharge Appropriate for Therapy Yes Therapy Recommendations Follow x 1 for ongoing education and to assess appropriateness of diet and implementation of strategies as needed. Dysphagia Goals Without cues, Joey will alternate liquids/solids and implement a finger sweep as needed to eliminate oral residue during a meal in order to safely consume meals. MATERIAL CHECKER Language Evaluation Start: 11/11/18 12:34 Freq: Status: Active Protocol: Document 11/11/18 07:50 TLC (Rec: 11/11/18 13:06 TLC [id number]) Language Evaluation - Informal Assessment Receptive Language Normal Yes Expressive Language Normal Yes Articulation Normal Yes Cognition Normal Yes Assessment Findings The Quick [place]asia Battery was administered to assess speech and language skills. No impairments observed in word comprehension, sentence comprehension (y/n questions), picture naming, repetition or reading skills. Motor speech skills were within functional limits. No paraphasias or word finding difficulty observed. - Receptive Language - Expressive Language - Findings Language Findings No communication impairment evident upon assessment of speech and language skills. Patient used pen and paper to communicate last night due to suspected dysarthria; however, speech was 100% intelligible this morning and both receptive and expressive language skills appeared normal. Patient denied any complaints or ongoing difficulty. Recommendations Recommendations No further speech or language therapy recommended.
[2018-11-11 08:00] VITALS: BP 127/72; PULSE 70; RESP 20; TEMP 36.9; O2SAT 96
--- NOTE | 2018-11-11 08:01 | PC.NURSE ---
Addendum entered by Patricia Walsh R.N. 11/11/18 11:51: MEDS - per , ok admin lovenox and asa. Original Note: Addendum entered by Patricia Walsh R.N. 11/11/18 10:49: MRI - pt was admin 1mg iv ativan prior to MRI, his device was removed and given to family in room in a zip lock bag, ivf dc'd and tele notified, placed on guerney and taken down for test and returned shortly after, per MRI pt was unable to fit his shoulders into the machine and the test could not be performed, pt returned to bed, tele reconnected and notified. Original Note: Addendum entered by Patricia Walsh R.N. 11/11/18 08:09: CARDIAC - per call to cardiology office, the zio device was to be removed 11/09/18 and that the pt has a box that he should put it in and return it to the company. Advised office we are removing now for planned MRI. 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
[2018-11-11] MEDS: PANTOPRAZOLE 40 MG TABLET PO (09:32)
[2018-11-11] MEDS: ATENOLOL 50 MG TABLET PO (09:32)
[2018-11-11] MEDS: FINASTERIDE 5 MG TABLET PO (09:32)
[2018-11-11] MEDS: AMLODIPINE 5 MG TABLET 10 MG PO (09:33)
[2018-11-11] MEDS: CELECOXIB 200 MG CAPSULE PO (09:33)
[2018-11-11] MEDS: TAMSULOSIN 0.4 MG CAPSULE PO (09:34)
[2018-11-11] MEDS: LORazepam 2 MG/ML SYRINGE 1 MG IV (09:47)
[2018-11-11 09:59] LABS: Urine Amphetamines Negative (Negative); Urine Barbiturates Negative (Negative); Urine Benzodiazepines Negative (Negative); Urine Cocaine Negative (Negative); Urine MDMA Negative (Negative); Urine Methadone Negative (Negative); Urine Methamphetamines Negative (Negative); Urine Morphine/Opi cutoff 2000 Negative (Negative); Urine Oxycodone Negative (Negative); Urine Phencyclidine Negative (Negative); Urine Tetrahydrocannabinol Negative (Negative); Urine Tricyclic Antidepressant Negative (Negative)
[2018-11-11] MEDS: ENOXAPARIN 40 MG/0.4 ML SYRINGE SUBCUT (10:34)
[2018-11-11] MEDS: ASPIRIN 325 MG TABLET PO (10:41)
[2018-11-11 12:00] VITALS: BP 128/57; PULSE 57; RESP 20; TEMP 36.6; O2SAT 96
--- NOTE | 2018-11-11 13:20 | PT.IIE ---
Current Diagnoses Cerebral infarction, unspecified (11/10/18) Medical History (Last Reviewed 11/11/18 @ 03:55 by ALBERTO Brand) BPH (benign prostatic hyperplasia) (Acute) Cardiac arrhythmia (Acute) Obstructive sleep apnea on CPAP (Acute) TIA (transient ischemic attack) (Acute) Status post gamma knife treatment (Chronic) AVM (arteriovenous malformation) (Chronic) Physical Therapy Inpatient Evaluation/Re-Eval M1 PT/OT-IP Prior Functional Status Start: 11/11/18 14:23 Freq: NEEDED Status: Active Protocol: Document 11/11/18 13:20 AB (Rec: 11/11/18 14:42 AB [id number]) Medical Review Prior Functional Status Medical History Reviewed Yes Communication able to make needs known Mobility and Gait pt stated that he is independent with all mobilities and ambulation without AD Social History Household Members spouse Living Arrangements House Number of Floors (Floors) One Floor Number of Stairs To Enter/Railing? 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 PT-IP Current Condition Start: 11/11/18 14:23 Freq: NEEDED Status: Active Protocol: Document 11/11/18 13:20 AB (Rec: 11/11/18 14:42 AB [id number]) Physical Therapy Current Condition Current Condition Evaluation Date 11/11/18 Treatment Diagnosis CVA; difficulty in walking Onset Date 11/10/18 Precautions Other Precautions falls M3 PT-IP Subjective Start: 11/11/18 14:23 Freq: NEEDED Status: Active Protocol: Document 11/11/18 13:20 AB (Rec: 11/11/18 14:42 AB [id number]) Subjective Physical Therapy Visit Type Type Initial Evaluation Visit Start Time 13:20 Visit Stop Time 14:09 Total Visit Minutes 49 Number of LINOLEUM LAYER APPRENTICE Visits 0 Physical Therapy Visit Comments Patient Comments pt agreeable to do PT Therapy Pain Assessment Pain Present Pain Present Denied Pain M4 PT-IP Mobility and Gait Start: 11/11/18 14:23 Freq: NEEDED Status: Active Protocol: Document 11/11/18 13:20 AB (Rec: 11/11/18 14:42 AB [id number]) PT-Bed Mobility Assessment Supine to Sit Supine to Sit Standby Assistance Scooting Scooting to Edge of Bed Standby Assistance PT-Transfer Assessment Sit to and From Stand Sit to and from Stand Contact Guard Assistance Equipment Transfer Assistive Device Gait Belt Front Wheeled Walker Orthotic/Prosthetic Devices or Brace: No Transfers Transfer Destination Chair Transfer Technique pt ambulated using FWW Transfer Ability Level of Assist Contact Guard Assistance Gait Assessment Gait Gait Assistance Required: Contact Guard Assist Distance (Feet) 40 Able to Maintain Weight Bearing Status Yes During Gait Assistive Devices Assistive Device Gait Belt Front Wheeled Walker Orthotic/Prosthetic Devices or Brace: No Gait Deviations General Gait Pattern Antalgic Factors Limiting Gait Function Factors Limiting Gait Function Decreased Activity Tolerance Decreased Strength Poor Balance Comments Gait Comments pt completed ambulation using FWW CGA 40 ft and required cues for L quads activation with increase L knee flexion during end of ambulation but able to control with cues provided. pt with increase weight bearing using FWW with BLE UE. stated that he is not putting much weight on LLE. PT-Balance Assessment Sitting Balance and Reactions Static Sitting Balance Ability Good Dynamic Sitting Balance Ability Good Standing Balance and Reactions Static Standing Balance Ability Fair Dynamic Standing Balance Ability Fair Device Used FWW M5 PT-IP Objective Assessments Start: 11/11/18 14:23 Freq: NEEDED Status: Active Protocol: Document 11/11/18 13:20 AB (Rec: 11/11/18 14:42 AB [id number]) Orientation Orientation/Cognition Level of Alertness Alert Orientation Name Age Birthday Month Date Year Day of Week Place Situation Safety Awareness Understands Safety Issues Memory Description No Deficits Noted Gross Range of Motion Lower Extremity ROM Assessment Within Functional Limits Strength Lower Extremity Strength Assessment Left Impaired Hip 3+/5 Knee 3+/5 Coordination Assessment Gross Coordination Gross Coordination WNL Sensation Assessment Sensation Gross Sensation WNL Muscle Tone Muscle Tone WNL Yes M6 PT-IP Treatment Start: 11/11/18 14:23 Freq: NEEDED Status: Active Protocol: Document 11/11/18 13:20 AB (Rec: 11/11/18 14:42 AB [id number]) Physical Therapy Treatment Exercises Exercises Quad Sets Seated Knee Flexion/Extension Education Education Provided Safety M7 PT-IP Assessment and Plan Start: 11/11/18 14:23 Freq: NEEDED Status: Active Protocol: Document 11/11/18 13:20 AB (Rec: 11/11/18 14:42 AB [id number]) PT Summary Assessment and Plan Potential Rehabilitation Potential Good Status of Condition at Evaluation Stable Summary Impairments Strength Balance Transfers Gait Activity Tolerance Assessment Summary pt requiring CGA with ambulation using FWW with cues provided for L quads activation. pt will benefit from acute rehab to improve strength and functional independence prior to d/c home . pt is motivated and has a increase potential to progress . Goals Bed Mobility Goal Independent Transfer Goal Independent Front Wheeled Walker Gait Goal Independent Front Wheel Walker Gait Distance 200 Other Goals LTG: to improve ambulation without AD ~ 100 ft SBA Days to Meet Goals 5 Frequency of Treatment Frequency Of Treatment Twice a Day Treatment Plan Physical Therapy Treatment Plan Bed Mobility Training Transfer Training Gait Training Therapeutic Exercise Balance Retraining Discharge Planning Neuromuscular Re-ed Coordination Retraining Manual Therapy Recommendations To Nursing Amount of Assist Needed 1 Person Assist Discharge Recommendations PT Discharge Recommendations Acute Rehab
--- NOTE | 2018-11-11 14:40 | OT.IP.EVAL ---
Current Diagnoses Cerebral infarction, unspecified (11/10/18) Past Medical History (Last Reviewed 11/11/18 @ 03:55 by ALBERTO Brand) BPH (benign prostatic hyperplasia) (Acute) Cardiac arrhythmia (Acute) Obstructive sleep apnea on CPAP (Acute) TIA (transient ischemic attack) (Acute) Status post gamma knife treatment (Chronic) AVM (arteriovenous malformation) (Chronic) Occupational Therapy Inpatient Evaluation/Re-Eval M1 PT/OT-IP Prior Functional Status Start: 11/11/18 14:23 Freq: NEEDED Status: Active Protocol: Document 11/11/18 14:40 PJM (Rec: 11/11/18 17:34 PJM [id number]) Medical Review Prior Functional Status Medical History Reviewed Yes Diet/Fluid Consistency Regular Communication WNL except when L side of face spasms amd jaw locks, then pt reports difficulty speaking Mobility and Gait Pt stated that he is independent with all mobilities and ambulation without AD. 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 Pt drives her to grocery store. Social History Household Members spouse Living Arrangements House Number of Floors (Floors) One Floor Number of Stairs To Enter/Railing? 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 He uses no DME at home but has access to FWW, 4WW, cane as needed. M2 OT-IP Current Condition Start: 11/11/18 17:09 Freq: Status: Active Protocol: Document 11/11/18 14:40 PJM (Rec: 11/11/18 17:34 PJM [id number]) Occupational Therapy Current Condition Current Condition Evaluation Date 11/11/18 Treatment Diagnosis decreased self care, functional mobility s/p stroke w/L hemiparesis Diagnosis Onset Date 11/10/18 Post Operative Precautions Other Precautions L side weakness, fall risk M3 OT- IP Subjective and Pain Start: 11/11/18 17:09 Freq: Status: Active Protocol: Document 11/11/18 14:40 PJM (Rec: 11/11/18 17:34 [facility] [id number]) OT- Subjective Occupational Therapy Visit Type Type Initial Evaluation Visit Start Time 13:45 Visit Stop Time 14:40 Total Visit Minutes 55 Occupational Therapy Visit Comments Patient Comments I plan to work until I am 67, so I need to get my strength back. 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 OT Pain Assessment Pain When Pain Assessed After Treatment Pain Present Pain Present Denied Pain M4 OT- IP ADL's Start: 11/11/18 17:09 Freq: Status: Active Protocol: Document 11/11/18 14:40 PJM (Rec: 11/11/18 17:34 [facility] [id number]) OT [id number] General Evaluation Self-Feeding Ability Independent OT ADL-Grooming General Evaluation Grooming Ability Standby Assistance Areas Needing Assistance Retrieving/Set-up of Grooming Items Comments OT Grooming Comments seated in chair or in bed OT ADL-Oral Care General Eval Oral Care Ability Standby Assistance Comments Oral Care Comments seated in chair or in bed OT ADL-Dressing General Eval Lower Body Dressing Ability Minimal Assistance Areas Needing Assistance Underpants/Brief Socks OT ADL-Toileting Comments OT Toileting Comments did not occur this session OT ADL-Bathing Comments OT Bathing Comments to be assessed as mobility improves M5 OT- IP IADL's Start: 11/11/18 17:09 Freq: Status: Active Protocol: Document 11/11/18 14:40 PJM (Rec: 11/11/18 17:34 [facility] [id number]) OT-Instrumental Activities of Daily Living Deficits IADL Deficits Identified Deficits Home Safety Awareness Awareness of Need for Assistance at Home Good Awareness Ability to Problem Solve Emergency Able to Problem Solve Situations Medication Management Medication Management No Deficits Identified Money Management Money Management No Deficits Identified Meal Preparation Meal Preparation Caregiver Provides Assist Meal Preparation Comments normally does the cooking at home Lead Solutions Architect Lead Solutions Architect Comments normally does the cleaning and treatment technician at home Driving Driving Comments prefers not to drive, pt will need assist with transport at present M6 OT- IP Functional Cognition Start: 11/11/18 17:09 Freq: Status: Active Protocol: Document 11/11/18 14:40 PJM (Rec: 11/11/18 17:34 [facility] [id number]) Cognitive Factors Limiting Selfcare Function Cognitive Ability Level of Alertness Alert Patient Orientation Name Attention Span Ability Capable of Focused Attention Capable of Sustained Attention Ability to Follow Commands Able to Follow One Step Commands Memory Description No Deficits Noted Safety Awareness No Deficits Noted Cognitive Comments Cognitive Assessment Comments Cognition appears WFL at present with further assessment to follow OT- Vision and Hearing OT- Hearing Assessment OT- Hearing Assessment WFL OT- Vision Assessment Visual Acuity WFL Glasses All The Time Visual Attentiveness WFL Occular Pursuits WFL Visual Savage WFL Vision Assessment Comments Pt has episodes of L eye closing involuntarily since gamma knife surgery. This occurred this session, lasting about 2 minutes. Visual savage and ocular pursuits appear intact in B eyes. Pt denies any changes in his vision since stroke. M7 OT- IP Mobility and Balance Start: 11/11/18 17:09 Freq: Status: Active Protocol: Document 11/11/18 14:40 PJM (Rec: 11/11/18 17:34 PJ [id number]) OT- Bed Mobility Assessment Rolling Type of Rolling Roll to Right Level of Assistance Standby Assistance Supine to Sit Supine to Sit Assist Standby Assistance Scooting Scooting to Edge of Bed Standby Assistance OT-Transfer Assessment Sit to and From Stand Sit to and from Stand Contact Guard Assistance Transfers Transfer Ability Contact Guard Assistance Technique Transfer Destination Chair Transfer Technique Stand Step Pivot Devices Transfer Assistive Devices Gait Belt Front Wheeled Walker Comments Mobility Comments Pt just getting up with P.T. when therapist arrived. OT- Gait Assessment Gait Gait Assistance Required: Contact Guard Assist Distance (Feet) 40 Assistive Devices Assistive Device Gait Belt Front Wheeled Walker Comments Gait Ability Comments with P.T. OT- Balance Assessment Comments Other Balance Tests/Deviations/Treatment ses P.T. notes : M8 OT- IP Objective Assessments Start: 11/11/18 17:09 Freq: Status: Active Protocol: Document 11/11/18 14:40 PJM (Rec: 11/11/18 17:34 PJ [id number]) OT Gross Range of Motion Upper Extremity Range of Motion Assessment Within Functional Limits ROM Impairments except B shoulder scaption limited to about 100 degrees due to stiffness and body size with L shoulder painful at end range due to old injury with out pt P.T. 2 yrs ago after fall OT Strength Upper Extremity Strength Assessment Left Impaired Shoulder R 5/5 L 4-/5 flexion and abduction Elbow R 5/5 L 4-/5 flex and extension Forearm R 5/5 L 3+/5 Wrist R 5/5 L 4-/5 Hand R 5/5 L 3+ to 4-/5 see below Hand Network Relations Consultant Strength Hand Dominance Right Comments Strength Comments R Norm L Norm Gross Grasp 78 lbs (61-113) 22 (54-106) Lateral Pinch 23 (14-23) 14 (12.5-21.5) Palmar Pinch 12 (11.5-21) 7 (10.5-20.5) Tip Pinch 11 (11-22.5) 5 (10-22.5) R hand strength WNL throughout, L hand strength functional for use as assist but not WNL for pt's age and sex OT- Coordination Assessment Upper Extremity Finger to Nose Test Left UE Impaired Finger Tapping Test Left UE Impaired Comments Coordination Comments L hand gross and fine coordination impaired by weakness with significantly slowed rapid alternating movements compared to R UE/ hand; gross motor movements more impaired than fine motor OT-Muscle Tone Assessment Muscle Tone WNL Yes OT Sensation Assessment Location Left Arm Light Touch Intact/Normal Proprioception (Position) Intact/Normal Comments Summary Comments sensation appears intact in LUE/hand Edema Edema Absent M9 OT- IP Assessment and Plan Start: 11/11/18 17:09 Freq: Status: Active Protocol: Document 11/11/18 14:40 PJM (Rec: 11/11/18 17:34 PJM [id number]) OT Summary Assessment and Plan Potential Rehabilitation Potential Good Analytic Complexity at Evaluation Low Summary OT Impairments Strength Balance Coordination Functional Mobility Grooming Dressing Toileting Bathing Toilet Transfers Shower Transfers Assessment Summary Low complexity OT assessment completed on this 63 yr old male with presumed stroke with LUE/LLE weakness and incoordination. This results in performance deficits in all functional mobility/transfers , standing grooming, dressing, bathing, toileting and endurance as described above. 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 Recommend intensive therapy at acute in-pt rehab facility when pt medically stable. Note pt to be [facility] to [facility] for higher level of care. Goals Grooming Goal Standby Assistance Dressing Goal Standby Assistance Toileting Goal Standby Assistance Bathing Goal Standby Assistance Toilet Transfer Goal Standby Assistance Shower Transfer Goal Standby Assistance Days to Meet Goals 7 Frequency of Treatment Frequency Of Treatment Discharge Treatment Plan OT Treatment Plan ADL Training Functional Mobility Neuromuscular Re-education Therapeutic Exercises Patient/Family Education Discharge Planning Discharge Recommendations OT Discharge Recommendations Acute Rehab Home Equipment Needs to be determined in next rehab setting
--- NOTE | 2018-11-11 14:52 | CM.IDA ---
Discharge Planning/Care Management CM Discharge Assessment Start: 11/11/18 14:45 Freq: Status: Active Protocol: Document 11/11/18 14:45 IMAN (Rec: 11/11/18 14:52 IMAN [id number]) Discharge Planning Assessment Assigned Manager Sound JONNATHAN Becerra DPOA/Assigned Designee Name Araceli May, spouse Contact Information [phone] Advance Directives? No History Provided By Medical Record Prior Living Arrangements House Household Members spouse Type of transporation used prior to Drives own vehicle admit Independent with ADL's Yes Is patient alert and oriented? 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 CVA can not be confirmed by MRI, pt is not able to fit in the MRI machine. Payer: [employer]/ [employer] Reviewed chart, spoke w/DARON Gomez and therapy team, PT/OT today. Therapy team recommending acute rehab, pt agreeable but wonders if his insurance will pay ? Then spoke w/Dr Figueroa, she is considering transfer; unsure on next steps. 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 Pt is indp at baseline, works at the [employer] . He is motivated to return to his PLOF and would benefit from aggressive acute rehab. Following closely. JONNATHAN Santana Review Status In Process
--- NOTE | 2018-11-11 15:36 | PM.DS.1 ---
History of Present Illness Date Patient Seen: 11/11/18 Chief complaint: Stroke Narrative: Written by Yogi DOMINGUEZ: Joey May is a 63-year-old male patient with a history AVM status post gamma knife treatment, TIA BPH, arrhythmias and obstructive sleep apnea on CPAP who presents to the ER with acute onset of weakness that started between 1 and 2:00 p.m. today. Patient endorse a previous history of left facial ?spasms? that appear as facial drooping clenching the jaw where he states he will be able open his mouth. The patient describes these episodes occurring since his gamma knife and was thought to be seizure activity and started on seizure medicine on escalating doses. The episodes last between 2 minutes and 8 hours in duration affecting only the left side of his face. An EEG was done during the event to confirm that this was not seizure related and his seizure medication was discontinued. With the episodes persisting but less frequent. Today the patient was experienced such an episode however this time it was accompanied with left arm and leg weakness prompting the patient to present to the ER. The patient reports significant bifrontal headache. He does report an episode of elevated blood pressures into the 200 systolic. Patient also has a ZIO cardiac recorder left chest for complaints of arrhythmias of unknown type. The patient has had no syncope dizziness or lightheadedness. He has had difficulty speaking related to the muscular spasms of his face but reports that he has not experienced confusion for chief Ru mentation. Reports no change in visual field or scotoma and has no changes in hearing. He has no neck or back pain. he reports no chest and denies shortness of breath. He has no abdominal pain and denies nausea vomiting, constipation or diarrhea. CT by stroke protocol shows no acute processes but does identify hypodensity in left temporal lobe consistent with location of the patient's AVM treated with gamma knife. On CTA there are no definite changes noted since prior scan on August 26, 2018. Does note atherosclerosis of the carotid bifurcation without hemodynamic stenosis. The exam notes the cyst left temporal lobe status post gamma knife. The patient's CBC is unremarkable. On chemistries found to be hypokalemic with a potassium of 3.0 with good renal function with a BUN of 18 and creatinine is 0.8. His troponin is negative at less than 0.012. Discharge Providers Date of admission: 11/10/18 18:35 Discharge Date: 11/11/18 Primary care physician: Low Rush MD Consults: 11/10/18 21:21 Consult to Dietitian, Adult Routine Comment: Reason For Exam: morbid obesity BMI 44.4 Consult to Discharge Planning Routine Comment: Consult to Occupational Therapy Evaluate & Treat Comment: CVA with left stanley Physician Instructions: Evaluate and treat Consult to Physical Therapy Evaluate & Treat Comment: CVA with left stanley Physician Instructions: Evaluate and Treat 11/10/18 21:25 Consult to Speech Therapy Evaluate & Treat Comment: Swallow evaluation, acute CVA Physician Instructions: Evaluate and treat 11/11/18 04:26 Consult to Respiratory Therapy Evaluate & Treat Comment: The patient is on CPAP machine Physician Instructions: Evaluate and treat Discharge provider: Lucy Figueroa DO Summary Hospital Course: 1. Probable acute CVA, present on admission. Active. -The patient presented to the hospital 2.5 hours (started at 1400 on 11/10) after onset of his symptoms of left leg and arm weakness (never had previously). Patient has previous history of left facial droop/spasm without associated hemiparesis or seizure thought to be sequelae to previous gamma knife radiation. -Cardiovascular risk factors include: Hypertension, previous AVM and right frontal lacunar CVA, former smoker and secondhand smoke exposure daily, and significant family history (mother, father and brother). -[facility] service is consulted by the ER physician, patient is not a candidate for tPA related to gamma knife and CTA brain did not demonstrate any large vessel blockage amenable to intervention or acute CVA. -Initial NIH score 7. Continue every 4 hour neuro assessment and NIH score. -Allowed for permissive hypertension. Ordered labetalol as needed for SBP >220 mmHg and DBP >120 mmHg. -Ordered MR stroke protocol which was unobtainable due to patient's size. Patient transferred to [facility] for further neurology evaluation and MR stroke protocol. -Lipid panel demonstrated: total cholesterol 133, triglycerides 112, LDL 74, HDL 37. -Continued IV fluids with normal saline at 100 mL/hr. -Ordered PT/OT/ST evaluation and treatment, pending. -Started patient on aspirin 81 mg daily and atorvastatin 40 mg daily at bedtime for stroke prophylaxis. Questionable why patient has not been placed on stroke prophylaxis previously and possibly due to history of gamma knife radiation for AVM?? -Ordered echocardiogram, results pending. 2. Possible cardiac arrhythmia, not present on admission. -Patient with possible cardiac arrhythmia per monitor at home (states irregular rhythm). No complaints of chest pain, palpitations or shortness of breath. -Antihypertensives include: atenolol 100 mg daily (possibly for antiarrhythmic effect), clonidine 0.1 mg twice daily, amlodipine 10 mg daily and hydrochlorothiazide 25 mg daily (with hypokalemia at 3.0 which was treated with potassium chloride 60 mEq IV x1. -Patient had ZIO patch in place which was removed for MR stroke protocol. -Continued to replete electrolytes as needed with goal K+> 4.0 and Mg+> 2.0. 3. 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 -Patient had gamma knife radiation in approximately 2002 with residual left facial spasm that last anywhere from 2 minutes to 8 hours. He has never had other residual or associated neurological deficits. -Per patient his MRI has cystic lesion that is slightly growing and has been monitored by [facility] neurology. Attempted transfer to [facility] but no beds available. 4. Hypertension, chronic, not present on admission. Stable. -Blood pressure well controlled at 127/52. -Allowed for permissive hypertension (decrease in BP no more than 15% in first 24 hrs) and held hydrochlorothiazide 25 mg daily and clonidine 0.1 mg twice daily. Continued atenolol 100 mg daily and amlodipine 10 mg daily. -Ordered labetalol as above. 5. Obstructive sleep apnea on CPAP, chronic, present on admission. Stable. -Patient uses CPAP at night and during naps. Family to bring in CPAP machine from home. Ordered RT for CPAP protocol. 6. Benign prostatic hypertrophy, chronic, present on admission. Stable. -Continued patient's home medications of finasteride and tamsulosin. Status at Discharge Overall status at discharge: patient is not back to baseline Exam Vital Signs (past 8 hours): - 11/11/18 08:00 11/11/18 12:00 Temperature 98.4 F 97.8 F Pulse Rate 70 57 L Respiratory Rate 20 20 Blood Pressure 127/72 128/57 L Pulse Oximetry 96 96 Oxygen Delivery Method Room Air Narrative Exam Narrative: General: Older male sitting in bedside chair and in no acute distress, appears older than stated age well-developed, well-nourished, appropriately interactive. HEENT: Normocephalic, atraumatic. External ears without defect. Pupils equal, round, and reactive to light and accommodation. Anicteric sclerae, moist conjunctivae, and no lid lag. Oropharynx free of erythema and cobble stoning with moist mucosa. Neck: Supple with full range of motion. No jugular venous distension. No bruits. No lymphadenopathy or thyromegaly. Cardiovascular: Regular rate and rhythm without murmurs, rubs, or gallops appreciated Pulmonary: Clear to auscultation bilaterally without crackles, wheezes, or rhonchi. Normal respiratory effort with no use of accessory muscles. Abdomen: Soft, obese, bowel sounds present, nontender, nondistended. No hepatosplenomegaly or masses appreciated. Extremities: No clubbing, cyanosis, or edema. Skin: Normal temperature, turgor, and texture; no rash, ulcers, or subcutaneous nodules appreciated. Neurological: Left-sided facial droop, left-sided weakness +3/5 in both upper and lower extremities, no right-sided weakness. Cerebellar function intact. Psychiatric: Normal mood and affect. Alert and oriented to person, place, and time. Objective Labs Result Diagrams: 11/11/18 05:02 11/11/18 05:02 Labs: Laboratory Results - last 24 hr 11/10/18 11/10/18 11/10/18 16:40 16:40 16:40 WBC 12.2 H RBC 5.63 Hgb 13.3 L Hct 43.1 MCV 76.6 L MCH 23.6 L MCHC 30.8 RDW 17.3 H Plt Count 316 Neut % (Auto) 66.2 Lymph % (Auto) 19.0 L [place] % (Auto) 10.8 Eos % (Auto) 3.4 Baso % (Auto) 0.6 Neut # (Auto) 8000 H Lymph # (Auto) 2300 [place] # (Auto) 1300 H Eos # (Auto) 400 Baso # (Auto) 100 PT 12.5 INR 1.1 APTT 32 Sodium 138 Potassium 3.0 L Chloride 96 L Carbon Dioxide 31 BUN 18 Creatinine 0.80 Estimated GFR > 60.0 BUN/Creatinine Ratio 22.5 H Glucose 158 H Calcium 9.4 Magnesium Troponin I < 0.012 Triglycerides Cholesterol LDL Cholesterol, Calc HDL Cholesterol TSH Urine Opiates Screen Ur Oxycodone Screen Urine Methadone Screen Ur Barbiturates Screen U Tricyclic Antidepress Ur Phencyclidine Scrn Ur Amphetamines Screen U Methamphetamines Scrn Ur MDMA Scrn (Ecstasy) U Benzodiazepines Scrn Urine Cocaine Screen U Marijuana (THC) Screen 11/11/18 11/11/18 11/11/18 05:02 05:02 05:02 WBC 9.0 RBC 4.97 Hgb 12.2 L Hct 37.7 L MCV 75.8 L MCH 24.5 L MCHC 32.3 RDW 17.2 H Plt Count 243 Neut % (Auto) 64.8 Lymph % (Auto) 20.2 L [place] % (Auto) 10.3 Eos % (Auto) 4.1 H Baso % (Auto) 0.6 Neut # (Auto) 5800 Lymph # (Auto) 1800 [place] # (Auto) 900 Eos # (Auto) 400 Baso # (Auto) 100 PT INR APTT Sodium Potassium Chloride Carbon Dioxide BUN Creatinine Estimated GFR BUN/Creatinine Ratio Glucose Calcium Magnesium 1.9 Troponin I Triglycerides Cholesterol LDL Cholesterol, Calc HDL Cholesterol TSH 5.31 H Urine Opiates Screen Ur Oxycodone Screen Urine Methadone Screen Ur Barbiturates Screen U Tricyclic Antidepress Ur Phencyclidine Scrn Ur Amphetamines Screen U Methamphetamines Scrn Ur MDMA Scrn (Ecstasy) U Benzodiazepines Scrn Urine Cocaine Screen U Marijuana (THC) Screen 11/11/18 11/11/18 05:02 09:50 WBC RBC Hgb Hct MCV MCH MCHC RDW Plt Count Neut % (Auto) Lymph % (Auto) [place] % (Auto) Eos % (Auto) Baso % (Auto) Neut # (Auto) Lymph # (Auto) [place] # (Auto) Eos # (Auto) Baso # (Auto) PT INR APTT Sodium 136 L Potassium 3.0 L Chloride 100 Carbon Dioxide 27 BUN 13 Creatinine 0.70 Estimated GFR > 60.0 BUN/Creatinine Ratio 18.6 Glucose 148 H Calcium 8.5 Magnesium Troponin I Triglycerides 112 Cholesterol 133 L LDL Cholesterol, Calc 74 HDL Cholesterol 37 L TSH Urine Opiates Screen Negative Ur Oxycodone Screen Negative Urine Methadone Screen Negative Ur Barbiturates Screen Negative U Tricyclic Antidepress Negative Ur Phencyclidine Scrn Negative Ur Amphetamines Screen Negative U Methamphetamines Scrn Negative Ur MDMA Scrn (Ecstasy) Negative U Benzodiazepines Scrn Negative Urine Cocaine Screen Negative U Marijuana (THC) Screen Negative Discharge Plan Discharge Plan Patient Disposition: Xfer Acute Care Hospital Transfer to: [facility] Under care of provider: Dr. Yo hospitalist Discharge Med Rec/Prescriptions Prescriptions: New atorvastatin [Lipitor] 20 mg Tablet 40 mg PO BEDTIME Qty: 30 RF: 0 aspirin 325 mg Tablet,Delayed Release (Dr/Ec) 325 mg PO DAILY Qty: 30 RF: 0 Continued atenolol 50 MG tablet 100 mg PO DAILY Qty: 0 RF: 0 finasteride 5 MG tablet 5 mg PO DAILY Qty: 0 RF: 0 Blue Emu 1 applic Topical PRN PRN (Reason: muscle pain) RF: 0 omeprazole 20 mg capsule,delayed release(DR/EC) 40 mg PO BID RF: 0 amlodipine 10 mg tablet 10 mg PO DAILY RF: 0 cyclobenzaprine 10 mg tablet 10 mg PO TID PRN (Reason: Spasms) RF: 0 clonidine 0.1 mg tablet 0.1 mg PO BID RF: 0 allopurinol 300 mg tablet 300 mg PO DAILY RF: 0 montelukast 10 mg tablet 10 mg PO QPM RF: 0 hydrochlorothiazide 25 mg tablet 25 mg PO DAILY RF: 0 tamsulosin 0.4 mg capsule 0.4 mg PO DAILY RF: 0 celecoxib [Celebrex] 200 mg capsule 200 mg PO DAILY Qty: 90 RF: 2 Follow up/Referrals: Low Rush MD [Primary Care Provider] - Discharge Data Primary Care Provider: Low Rush Attending Provider: Shena Wiggins Admit Date/Time: 11/10/18 18:35 Quality VTE Deep Vein Thrombosis/Pulmonary Embolism Present on Admission: No
[2018-11-11 15:38] VITALS: BP 118/58; PULSE 54; RESP 18; TEMP 36.7; O2SAT 94
[2018-11-11 15:48] LABS: Free T4, Direct Thyroxine 1.57 ng/dL (0.78-2.19)
--- NOTE | 2018-11-11 17:33 | PC.NURSE ---
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. Patient agreeable, daughter also here and was given address and room number. Pt with all belongings and discharge packet was given to patient and transfer packet given to coal cutting machine operator.
== END 2018-11-11 17:30 | disposition short-term general hospital (02) | DRG 65 ==
LOC: ED 18:34 → AC 11-11 08:52
PROVIDERS: Internal Medicine; Nurse Practitioner Adult Health; Admitting Provider Internal Medicine; Emergency Provider Emergency Medicine; PCP Family Medicine; Visit Provider Internal Medicine
DX: I63.9 Cerebral infarction, unspecified (principal); G81.94 Hemiplegia, unspecified affecting left nondominant side; Z68.41 Body mass index [BMI] 40.0-44.9, adult; R29.707 NIHSS score 7; E66.9 Obesity, unspecified; E87.6 Hypokalemia; N40.0 Benign prostatic hyperplasia without lower urinary tract symptoms; I49.9 Cardiac arrhythmia, unspecified; G47.33 Obstructive sleep apnea (adult) (pediatric); Z87.891 Personal history of nicotine dependence; I10 Essential (primary) hypertension
CPT/HCPCS: 36415; 36591; 70450; 70496; 70498; 71045; 80048; 80061; 80305; 82962; 83735; 84439; 84443; 84484; 85025; 85610; 85730; 92523; 92610; 93005; 93306; 96360; 96361; 97161; 97165; 97530; 97535; 99283; 99291; J1650; J2060; J3480; Q9957; Q9967

== ENCOUNTER 2018-12-09 13:37 | Emergency (ER) | payer OTHER, SELFPAY ==
[2018-11-10 20:00] VITALS: BMI 44.4
[2018-12-09] VITALS (11 sets, daily range): BP systolic 105–126; BP diastolic 46–72; PULSE 54–71; RESP 14–26; TEMP 37.3; O2SAT 94–98
--- NOTE | 2018-12-09 13:39 | DI.CT.S_ITS ---
PROCEDURE: CT HEAD/BRAIN WO CON INDICATIONS: code stroke TECHNIQUE: Noncontrast 4.5 mm thick angled axial sections acquired from the foramen magnum to the vertex, with coronal and sagittal reformats. For radiation dose reduction, the following was used: automated exposure control, adjustment of mA and/or kV according to patient size. COMPARISON: [facility], CT, CT HEAD/BRAIN WO CON, 11/10/2018, 16:37. FINDINGS: Image quality: Excellent. CSF spaces: Basal cisterns are patent. No extra-axial fluid collections. The ventricles are symmetric in size and shape. Brain: No intracranial bleeds or masses. There is cerebral volume loss for age, with resultant ventricular and sulcal prominence. There are periventricular and deep white matter chronic small vessel ischemic changes. There is intracranial internal carotid artery atherosclerosis. Skull and face: Calvarium and visualized facial bones appear intact, without suspicious lesions. Sinuses: Visualized sinuses and mastoids are clear. IMPRESSION: No acute intracranial process. Findings personally telephoned to Dr. Metcalf in the emergency department 1351 hours on 12/09/08. Dictated by: Memo Denson M.D. on 12/09/2018 at 13:48 Approved by: Memo Denson M.D. on 12/09/2018 at 13:52
[2018-12-09 13:52] LABS: Add Manual Diff / Slide Review NO; Basophils Absolute Auto 100 /uL (0-100); Basophils Percent Auto 0.9 % (0-2); Eosinophils Absolute Auto 200 /uL (0-450); Eosinophils Percent Auto 2.3 % (2-4); Hematocrit 40.5 % (41-53); Hemoglobin 12.9 g/dL (13.5-17.5); Lymphocytes Absolute Auto 1600 /uL (1100-4500); Mean Corpuscular HGB Conc 31.8 % (30-36); Mean Corpuscular Hemoglobin 24.2 PG (26-34); Mean Corpuscular Volume 76.2 fL (80-100); Monocytes Absolute Auto 1100 /uL (0-900); Neutrophils Absolute Auto 7800 /uL (1500-7000); Neutrophils Percent Auto 71.8 % (50-75); Platelet Count 301 X10^3/uL (150-400); Red Blood Cell Count 5.31 X10^6/uL (4.5-5.9); Red Cell Distribution Width 17.2 % (11.6-14.8); White Blood Cell Count 10.9 X10^3/uL (4.5-11.0)
[2018-12-09 14:03] LABS: INR 1.2 (0.9-1.3); Prothrombin Time 13.9 SECONDS (10.1-12.7)
[2018-12-09 14:06] LABS: PTT Partial Thromboplastin Tim 32 SECONDS (26.4-36.2)
[2018-12-09 14:08] LABS: Alanine Aminotransferase 62 IU/L (21-72); Albumin Globulin Ratio 1.2 (1.0-2.8); Alkaline Phosphatase 79 U/L (38-126); Aspartate Aminotransferase 57 IU/L (17-59); BUN Creatinine Ratio 22.2 (6-22); Bilirubin Total 0.4 mg/dL (0.2-1.3); Blood Urea Nitrogen 20 mg/dL (9-20); Carbon Dioxide 29 mmol/L (22-32); Chloride 102 mmol/L (98-107); Estimated Glomerular Filt Rate > 60.0 mL/min (>60); Globulin 3.3 g/dL (1.7-4.1); Glucose 146 mg/dL (80-110); HEMOLYSIS < 15 (0-50); Potassium 3.8 mmol/L (3.4-5.1); Sodium 135 mmol/L (137-145); Total Protein 7.3 g/dL (6.3-8.2)
--- NOTE | 2018-12-09 14:12 | ED.NEUROSD ---
HPI - Neuro Symptoms/Deficit General Chief Complaint: Neuro Symptoms/Deficit Stated Complaint: code stroke Time Seen by Provider: 12/09/18 13:42 Source: patient and EMS Mode of arrival: ambulatory Limitations: no limitations History of Present Illness HPI Narrative: Patient presents the emergency department via EMS after developing stroke-like symptoms about 1 hour ago. Patient was at work, when he began to notice that his left arm and leg seem to be heavy and he could not them. He then noticed that his left face was weak and that he was having trouble speaking. EMS was contacted and patient was brought here. Patient states he took his aspirin this morning, and that he has had a slight headache this afternoon. Patient denies any improvement in symptoms on arrival. He denies chest pain or shortness of breath. No fevers. No nausea or vomiting. patient had identical symptoms about 1 month ago and was seen here for. He was initially admitted at our hospital, but was found not to fit in the MRI machine, and was transferred to [facility] for MRI and neurology evaluation. The patient has a history of AVM repair with gamma knife procedure. Patient has a history of the facial symptoms before, and states that they have been happening with increasing frequently since the gamma knife treatment. However, the arm and leg weakness has not been a recurrent issue other than the patient's episode last month. Patient was not a tPA in the past, nor is he currently, due to his history of gamma knife procedure. Patient does note that ever since his gamma knife procedure, he has been having episodes of left face weakness, mixed with left facial spasm, and states that the facial symptoms are consistent with these episodes. They usually are not accompanied by body weakness. Related Data Home Medications Medication Instructions Recorded Confirmed finasteride 5 mg PO DAILY #0 12/16/12 12/09/18 allopurinol 300 mg tablet 300 mg PO DAILY 05/15/18 12/09/18 hydrochlorothiazide 25 mg tablet 25 mg PO DAILY 05/15/18 12/09/18 montelukast 10 mg tablet 10 mg PO QPM 05/15/18 12/09/18 tamsulosin 0.4 mg capsule 0.4 mg PO DAILY 05/15/18 12/09/18 Blue Emu 1 applic TOPICAL PRN PRN 08/26/18 12/09/18 omeprazole 40 mg PO BID 08/26/18 12/09/18 amlodipine 10 mg PO DAILY 11/11/18 12/09/18 clonidine HCl 0.1 mg PO BID #0 11/11/18 12/09/18 cyclobenzaprine 10 mg PO TID PRN #0 11/11/18 12/09/18 atenolol 100 mg PO DAILY 12/09/18 12/09/18 atorvastatin 40 mg PO QPM 12/09/18 12/09/18 ferrous sulfate 324 mg PO DAILY 12/09/18 12/09/18 metformin 500 mg PO BID 12/09/18 12/09/18 Previous Rx's Medication Instructions Recorded celecoxib 200 mg capsule 200 mg PO DAILY #90 cap 08/14/18 aspirin 325 mg PO DAILY #30 tab 11/11/18 clopidogrel [Plavix] 75 mg PO DAILY #45 tab 12/09/18 Allergies Allergy/AdvReac Type Severity Reaction Status Date / Time losartan Allergy Severe Anaphylaxis Verified 11/10/18 16:53 carbamazepine [CARBAMAZEPINE] Allergy Mild Verified 11/10/18 16:53 lamotrigine [LAMOTRIGINE] Allergy Mild Verified 11/10/18 16:53 Review of Systems Constitutional Denies chills, Denies fever(s), Denies lethargy and Denies weakness Eyes Denies change in vision, Denies eye discharge, Denies irritation and Denies loss of vision ENT Ears, Nose, Mouth, and Throat: Denies change in voice, Denies neck pain and Denies sore throat Cardiovascular Denies chest pain, Denies irregular heart rhythm, Denies lightheadedness, Denies palpitations, Denies dyspnea, Denies dyspnea on exertion and Denies orthopnea Respiratory Denies cough, Denies dyspnea, Denies dyspnea on exertion and Denies wheezing Gastrointestinal Gastrointestinal: Denies abdominal pain, Denies change in bowel habits, Denies diarrhea, Denies nausea and Denies vomiting Genitourinary Denies hematuria, Denies flank pain, Denies urinary incontinence and Denies urinary urgency Musculoskeletal Denies neck pain Integumentary/Breasts Denies pruritus, Denies erythema, Denies rash and Denies wounds Neurologic Denies confusion, Denies loss of vision and Denies weakness Comments: Facial droop, left arm and leg weakness Psychiatric Denies anxiety, Denies confusion, Denies depression, Denies homicidal ideation and Denies suicidal ideation Endocrine Denies palpitations Hematologic/Lymphatic Denies easy bruising Allergic/Immunologic Denies wheezing [facility] Medical History (Updated 12/09/18 @ 17:40 by Jewell Metcalf MD) Cardiac arrhythmia (Acute) Obstructive sleep apnea on CPAP (Acute) BPH (benign prostatic hyperplasia) (Acute) TIA (transient ischemic attack) (Acute) Acute CVA (cerebrovascular accident) (Acute) Status post gamma knife treatment (Chronic) AVM (arteriovenous malformation) (Chronic) DDD (degenerative disc disease), lumbosacral (Chronic) Facet arthritis, degenerative, L5-S1 level, lumbosacral spine (Chronic) Lumbosacral spondylosis (Chronic) Synovial cyst of popliteal space [Chand], left knee (Chronic) Spinal stenosis (Chronic) Paresthesia of lower extremity (Chronic) Nephrolithiasis (Acute) Hydronephrosis, left (Acute) Ureterolithiasis (Acute) Family History Father Stroke Mother Stroke Social History household members: spouse Smoking Status: Former smoker Family History Father Stroke Mother Stroke Social History household members: spouse Smoking Status: Former smoker Exam Initial Vital Signs Initial Vital Signs: Vital Signs Temperature 99.1 F 12/09/18 13:36 Pulse Rate 63 12/09/18 13:36 Respiratory Rate 19 12/09/18 13:36 Blood Pressure 124/55 L 12/09/18 13:36 Pulse Oximetry 95 12/09/18 13:36 Const General: cooperative and well developed Nutritional Appearance: well nourished Orientation: alert, awake, oriented x3 and not confused [facility] Head: normocephalic and atraumatic Ears: external ears normal Nose: external nose normal and No nasal discharge Face and sinus: face symmetric and No dry mucous membranes Mouth: oral mucosae normal and moist mucous membranes Teeth and gingiva: dentition normal Eyes General: appearance normal, both eyes and all related structures Eyelids: eyelids normal Conjunctivae: conjunctivae normal Sclera: sclerae normal Pupils: PERRL EOM: EOM intact bilaterally Neck Neck: normal visual inspection, trachea midline, No lymphadenopathy, No midline deformity and No JVD Lymphatic: No lymphedema Chest Chest: normal inspection of the chest Resp Effort & Inspection: normal respiratory effort, able to speak in complete sentences, no respiratory distress and no use of accessory muscles Auscultation: clear to auscultation bilaterally, no rales, no rhonchi and no wheezes Cardio Rate: regular rate Rhythm: regular rhythm Heart Sounds: no click, no gallops, no murmurs and no rubs Pulses: normal peripheral pulses GI Inspection: non-distended Palpation: soft, no hepatosplenomegaly, No guarding, No pulsatile mass and No tender Auscultation: normal bowel sounds Back/Spine/Pelvis Back: No CVA tenderness Cervical Spine: cervical ROM normal and No pain with cervical ROM Thoracic/Lumbar Spine: thoracic and lumbar spine normal to inspection Skin General: no rashes or lesions noted, No jaundice and No petechiae Neuro General: alert, awake and oriented x3 Other: Patient is found to have left-sided facial droop, with some distortion of the lateral portion of his mouth. Tongue deviates to the left. Patient has near complete hemiparesis of the left arm and leg, though he is able to move his left hand and forearm slightly. Patient's NIH stroke scale score was found to be 9 at the time of my examination, the patient is noted to be actively improving even during the time of my initial exam. Extrem General: full ROM, no clubbing, cyanosis or edema, no pedal edema and no calf tenderness Psych Appearance: well kempt Mental Status: mental status grossly normal Attitude: cooperative Thought Content: normal and suicidality Judgment: judgment good Scores NIH Stroke Scale Level of Conciousness: Not alert, but arousable by minor stim to obey, answer or respond Ask month/age: Answers both questions correctly. Open/close eyes, close hand: Performs both tasks correctly Best gaze horizontal: Normal Visual savage: No visual loss Facial palsy: Partial paralysis, total or near total paralysis of lower face Left arm drift: Some effort against gravity, cannot maintain, drifts down to bed Right arm drift: No drift for full 10 sec Left leg drift: Some effort against gravity, cannot maintain, drifts down to bed Right leg drift: No drift for full 10 sec Limb ataxia: Absent Sensory on face/arms/legs: Mild to moderate sensory loss, can tell touch Best language: No aphasia, normal Dysarthria: Mild to mod,some slurring Extinction or inattention: No abnormality Total NIH Stroke scale score: 9 Course Course Narrative: Patient was not initially evaluated as a code stroke, though once I was able to review his records, I found that he would not be a candidate for tPA, due to his gamma knife procedure. The patient's head CT was negative, and he was found to be actively improving in the emergency department. The patient she had already taken his aspirin for the day. He was too big to fit in our MRI machine, so CTA was performed of the head and neck, and this was negative for any obvious occlusion. Laboratory studies were unremarkable. I spoke with Dr. Thakur, the patient's neurologist at [facility], but since she was in clinic, she stated her preference that I speak with her colleague occupational medicine officer. I did speak with Dr. Macias, the on-call neurologist, and we reviewed all the results together, as well as the patient's symptoms, stroke score, and history. Dr. tereso rodriguez was also able to review the workup that was done last month, when the patient was sent up to [facility] for almost exactly the same symptoms. At that time he had had MRIs performed. Doctor she recommended that at this point, Plavix be added for the next several weeks, along with the patient continue on his aspirin. Dr. Macias felt that it is possible that the patient's symptoms are coming from something else, such as an atypical migraine or atypical seizure. As there is nothing else to be gained from the patient being admitted to the hospital, and as his symptoms were now nearly completely resolved, felt that it was reasonable to discharge the patient home, with plan to take Plavix and see 1 of their physician in their neurology office as soon as available. I spoke with the patient about this, and he stated that he does have an appoint with Dr. Thakur on January 17. I have advised him to call the office and see if there is an opening sooner, but if not, to keep this appointment. At this point, we have discussed that since it is not clear exactly what is causing the patient's symptoms, and the possibility of ischemia has not been completely ruled out, the patient should return to the emergency department, should symptoms like this recur. Patient has requested something for his headache, he has been given a dose of Toradol. We have discussed home management of symptoms, as well as the usual indications for return. Patient's stroke scale is now 0. Orders Ordered: Discontinued Medications Clopidogrel Bisulfate (Plavix) 75 mg PO NOW ONE Stop: 12/09/18 17:31 Last Admin: 12/09/18 18:04 Dose: 75 mg Sodium Chloride (Normal Saline 0.9%) 1,000 mls @ 150 mls/hr IV CONT FAITH Last Infusion: 12/09/18 18:15 Dose: 0 mls/hr Admin: 12/09/18 14:35 Dose: 150 mls/hr Ketorolac Tromethamine (Toradol) 30 mg IV NOW ONE Stop: 12/09/18 17:31 Last Admin: 12/09/18 18:04 Dose: 30 mg MDM - Neuro Symptoms/Deficit Medical Records Attestation: I reviewed the patient's medical records. Lab Data Attestation: I reviewed the patient's lab results. Result diagrams: 12/09/18 13:44 12/09/18 13:44 Lab Results 12/09/18 12/09/18 12/09/18 Range/Units 13:44 13:44 13:44 WBC 10.9 (4.5-11.0) X10^3/uL RBC 5.31 (4.5-5.9) X10^6/uL Hgb 12.9 L (13.5-17.5) g/dL Hct 40.5 L (41-53) % MCV 76.2 L (80-100) fL MCH 24.2 L (26-34) PG MCHC 31.8 (30-36) % RDW 17.2 H (11.6-14.8) % Plt Count 301 (150-400) X10^3/uL Neut % (Auto) 71.8 (50-75) % Lymph % (Auto) 15.0 L (25-40) % Worth % (Auto) 10.0 (3-14) % Eos % (Auto) 2.3 (2-4) % Baso % (Auto) 0.9 (0-2) % Neut # (Auto) 7800 H (2141-5089) /uL Lymph # (Auto) 1600 (2835-1262) /uL Worth # (Auto) 1100 H (0-900) /uL Eos # (Auto) 200 (0-450) /uL Baso # (Auto) 100 (0-100) /uL PT 13.9 H (10.1-12.7) SECONDS INR 1.2 (0.9-1.3) APTT 32 (26.4-36.2) SECONDS Sodium 135 L (137-145) mmol/L Potassium 3.8 (3.4-5.1) mmol/L Chloride 102 (98-107) mmol/L Carbon Dioxide 29 (22-32) mmol/L BUN 20 (9-20) mg/dL Creatinine 0.90 (0.66-1.25) mg/dL Estimated GFR > 60.0 (>60) mL/min BUN/Creatinine Ratio 22.2 H (6-22) Glucose 146 H (80-110) mg/dL Calcium 9.0 (8.4-10.2) mg/dL Total Bilirubin 0.4 (0.2-1.3) mg/dL AST 57 (17-59) IU/L ALT 62 (21-72) IU/L Alkaline Phosphatase 79 (38-126) U/L Total Protein 7.3 (6.3-8.2) g/dL Albumin 4.0 (3.5-5.0) g/dL Globulin 3.3 (1.7-4.1) g/dL Albumin/Globulin Ratio 1.2 (1.0-2.8) Point of Care Testing Glucose POC [address] scan - head: Radiologist's impression: ICATIONS: code stroke TECHNIQUE: Noncontrast 4.5 mm thick angled axial sections acquired from the foramen magnum to the vertex, with coronal and sagittal reformats. For radiation dose reduction, the following was used: automated exposure control, adjustment of mA and/or kV according to patient size. COMPARISON: [facility], CT, CT HEAD/BRAIN WO CON, 11/10/2018, 16:37. FINDINGS: Image quality: Excellent. CSF spaces: Basal cisterns are patent. No extra-axial fluid collections. The ventricles are symmetric in size and shape. Brain: No intracranial bleeds or masses. There is cerebral volume loss for age, with resultant ventricular and sulcal prominence. There are periventricular and deep white matter chronic small vessel ischemic changes. There is intracranial internal carotid artery atherosclerosis. Skull and face: Calvarium and visualized facial bones appear intact, without suspicious lesions. Sinuses: Visualized sinuses and mastoids are clear. IMPRESSION: No acute intracranial process. Findings personally telephoned to Dr. Metcalf in the emergency department 1351 hours on 12/09/08. Dictated by: Memo Denson M.D. on 12/09/2018 at 13:48 Approved by: Memo Denson M.D. on 12/09/2018 at 13:52 CTA head neck: Radiologist's impression: PROCEDURE: CT ANGIO HEAD AND NECK INDICATIONS: stroke TECHNIQUE: Pre-contrast 4.5 mm thick sections acquired from the foramen magnum to the vertex. After the administration of intravenous contrast, 1 mm thick sections acquired from the aortic arch through the [place] of [place]. Post-contrast 4.5 mm thick sections then re-acquired from the foramen magnum to the vertex. 3-dimensional [id number] (MIP) and/or volume rendering reformats were acquired of the central intracranial vasculature and neck separately. COMPARISON: [facility], CT, CT HEAD/BRAIN WO CON, 08/26/2018, 13:06. [facility], MR, MR HEAD/BRAIN WO CON, 08/26/2018, 14:59. [facility], CT, CT ANGIO HEAD AND NECK, 08/26/2018, 18:03. [facility], CT, CT HEAD/BRAIN WO CON, 11/10/2018, 16:37. [facility], CT, CT ANGIO HEAD AND NECK, 11/10/2018, 17:03. [facility], CT, CT HEAD/BRAIN WO CON, 12/09/2018, 13:37. FINDINGS: Image quality: Excellent. BRAIN: CSF spaces: Ventricles are normal in size and shape. Basal cisterns are patent. No extra-axial fluid collections. Brain: No midline shift. There is again seen a cystic lesion involving the left anterior temporal lobe. Mild increased enhancement can be seen within this region, as on series 12 image 15. No intracranial bleeds or masses. Torres-white matter interface appears intact. Skull and face: Calvarium and facial bones appear intact, without suspicious lesions. Orbits appear normal. Sinuses: Sinuses and mastoids are clear. HEAD CT ANGIOGRAPHY: Anterior circulation: Intracranial internal carotid arteries are normal in size and flow. There is a diminutive right A1 segment, with a corresponding robust left A1 segment. This is considered to be a normal developmental variant of the [place], of typically no clinical consequence. The flow within the paired anterior cerebral arteries is otherwise normal and symmetric. The flow within the middle cerebral arteries is normal and symmetric. The anterior communicating artery is seen. No aneurysms are seen. Posterior circulation: Visualized portions of the vertebral arteries demonstrate normal caliber, with the right larger than the left. The left vertebral artery largely terminates in a left posterior inferior cerebellar artery. The vertebral arteries do not clearly join to form the basilar artery. The basilar artery appears normal. Flow within the posterior cerebral arteries is normal and symmetric. No aneurysms are seen. NECK CT ANGIOGRAPHY: Carotid system: The great vessels demonstrate a conventional anatomy as they arise from the aortic arch. The origins of the common carotid arteries appear patent. The common carotid arteries demonstrate normal caliber and courses. The bifurcation regions demonstrate atherosclerotic irregularity with calcification. No hemodynamically significant stenosis can be seen of the internal carotid arteries. Posterior circulation: The origins of the vertebral arteries both appear widely patent. The more superior extracranial portions of both vertebral arteries also demonstrate calibers, with the right vertebral artery dominant left. The left vertebral artery largely terminates in a left posterior inferior cerebellar artery. The basilar artery is unremarkable. Soft tissues: Visualized neck soft tissues demonstrate no suspicious abnormalities. Incidental note is made of an azygos lobe. Bones: No suspicious bony lesions. Visualized cervical spine appears normally aligned. Mild mucosal thickening is seen within the posterior left ethmoid air cells. IMPRESSION: No definite, acute abnormality can be seen. If there is strong clinical suspicion for an acute stroke, please consider an MRI for further evaluation, as it is more sensitive (assuming that there is no contraindication to MRI). 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 Mild increased enhancement can be seen within this region. 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 Any quantitative measurements of stenosis were performed using NASCET criteria. Dictated by: John Art M.D. on 12/09/2018 at 14:39 Approved by: John Art M.D. on 12/09/2018 at 14:47 ECG Data Attestation: I personally reviewed and interpreted this ECG as follows: (See below) Interpretation: Twelve lead EKG performed December 09, 2018, at 1:45 p.m., as follows: Regular ventricular rhythm with a rate of 64 beats per minute MN interval 166 milliseconds QRS duration 79 millisecond QTC interval 404 millisecond Occasional ectopy with PVCs No ST T wave abnormalities Interpretation: Normal sinus rhythm, no signs of acute ischemia, occasional ectopy; borderline EKG as interpreted by ED MD. 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 Critical care time includes interview and examination of the patient, discussion of case with EMS, ordering and reviewing laboratory tests, ordering and reviewing radiologic tests, ordering and reviewing EKG and monitor tracing, ordering pharmacological interventions and assessing effects, evaluating cardiac output and oxygenation, re-evaluating the patient, discussion of case with specialists, review of old records, and documentation. Critical care time is exclusive of separately billable procedures. Discharge Plan Departure Patient Disposition: Home Clinical Impression: TIA (transient ischemic attack) Discharge Date/Time: 12/09/18 18:33 Interventions: ED Discharge Assessment Last Done: 12/09/18 18:32 Instructions: DI for Transient Ischemic Attack Activity Restrictions/Additional Instructions: Your case has been discussed with Dr. Macias, the on-call neurologist for Dr. Thakur's group. Your CT scans look good today, and he feels that while you may have had a transient stroke, you also may be having the symptoms for other reasons, such as an atypical seizure or an atypical migraine. He would like you to take a medicine that will work with your aspirin to help prevent any further strokes from occurring. You should take this as directed, once daily, and continue your aspirin, until you see Dr. Thakur in clinic in January. You may call Dr. Thakur's clinic to see if you may be seen sooner than this, but otherwise, keep the appointment you already have. For now, if you develop recurrent symptoms such as you have had today, please return to the emergency department. Prescriptions: New clopidogrel [Plavix] 75 mg tablet 75 mg PO DAILY Qty: 45 RF: 0 No Action finasteride 5 MG tablet 5 mg PO DAILY Qty: 0 RF: 0 Blue Emu 1 applic Topical PRN PRN (Reason: muscle pain) RF: 0 omeprazole 20 mg capsule,delayed release(DR/EC) 40 mg PO BID RF: 0 amlodipine 10 mg tablet 10 mg PO DAILY RF: 0 cyclobenzaprine 10 mg Tablet 10 mg PO TID PRN (Reason: Muscle Spasm) Qty: 0 RF: 0 clonidine HCl 0.1 mg Tablet 0.1 mg PO BID Qty: 0 RF: 0 aspirin 325 mg Tablet,Delayed Release (Dr/Ec) 325 mg PO DAILY Qty: 30 RF: 0 atorvastatin 40 mg tablet 40 mg PO QPM RF: 0 atenolol 100 mg tablet 100 mg PO DAILY RF: 0 metformin 500 mg tablet 500 mg PO BID RF: 0 ferrous sulfate 324 mg (65 mg iron) tablet,delayed release (DR/EC) 324 mg PO DAILY RF: 0 allopurinol 300 mg tablet 300 mg PO DAILY RF: 0 montelukast 10 mg tablet 10 mg PO QPM RF: 0 hydrochlorothiazide 25 mg tablet 25 mg PO DAILY RF: 0 tamsulosin 0.4 mg capsule 0.4 mg PO DAILY RF: 0 celecoxib [Celebrex] 200 mg capsule 200 mg PO DAILY Qty: 90 RF: 2 Referrals: Low Rush MD [Primary Care Provider] - Stand Alone Forms: Work Release Note
--- NOTE | 2018-12-09 14:19 | ED_ITS ---
HPI - Neuro Symptoms/Deficit General Chief Complaint: Neuro Symptoms/Deficit Stated Complaint: code stroke Time Seen by Provider: 12/09/18 13:42 Source: patient and EMS Mode of arrival: ambulatory Limitations: no limitations History of Present Illness HPI Narrative: Patient presents the emergency department via EMS after developing stroke-like symptoms about 1 hour ago. Patient was at work, when he began to notice that his left arm and leg seem to be heavy and he could not them. He then noticed that his left face was weak and that he was having trouble speaking. EMS was contacted and patient was brought here. Patient states he took his aspirin this morning, and that he has had a slight headache this afternoon. Patient denies any improvement in symptoms on arrival. He denies chest pain or shortness of breath. No fevers. No nausea or vomiting. patient had identical symptoms about 1 month ago and was seen here for. He was initially admitted at our hospital, but was found not to fit in the MRI machine, and was transferred to [facility] for MRI and neurology evaluation. The patient has a history of AVM repair with gamma knife procedure. Patient has a history of the facial symptoms before, and states that they have been happening with increasing frequently since the gamma knife treatment. However, the arm and leg weakness has not been a recurrent issue other than the patient's episode last month. Patient was not a tPA in the past, nor is he currently, due to his history of gamma knife procedure. Patient does note that ever since his gamma knife procedure, he has been having episodes of left face weakness, mixed with left facial spasm, and states that the facial symptoms are consistent with these episodes. They usually are not accompanied by body weakness. Related Data Home Medications Medication Instructions Recorded Confirmed finasteride 5 mg PO DAILY #0 12/16/12 12/09/18 allopurinol 300 mg tablet 300 mg PO DAILY 05/15/18 12/09/18 hydrochlorothiazide 25 mg tablet 25 mg PO DAILY 05/15/18 12/09/18 montelukast 10 mg tablet 10 mg PO QPM 05/15/18 12/09/18 tamsulosin 0.4 mg capsule 0.4 mg PO DAILY 05/15/18 12/09/18 Blue Emu 1 applic TOPICAL PRN PRN 08/26/18 12/09/18 omeprazole 40 mg PO BID 08/26/18 12/09/18 amlodipine 10 mg PO DAILY 11/11/18 12/09/18 clonidine HCl 0.1 mg PO BID #0 11/11/18 12/09/18 cyclobenzaprine 10 mg PO TID PRN #0 11/11/18 12/09/18 atenolol 100 mg PO DAILY 12/09/18 12/09/18 atorvastatin 40 mg PO QPM 12/09/18 12/09/18 ferrous sulfate 324 mg PO DAILY 12/09/18 12/09/18 metformin 500 mg PO BID 12/09/18 12/09/18 Previous Rx's Medication Instructions Recorded celecoxib 200 mg capsule 200 mg PO DAILY #90 cap 08/14/18 aspirin 325 mg PO DAILY #30 tab 11/11/18 clopidogrel [Plavix] 75 mg PO DAILY #45 tab 12/09/18 Allergies Allergy/AdvReac Type Severity Reaction Status Date / Time losartan Allergy Severe Anaphylaxis Verified 11/10/18 16:53 carbamazepine [CARBAMAZEPINE] Allergy Mild Verified 11/10/18 16:53 lamotrigine [LAMOTRIGINE] Allergy Mild Verified 11/10/18 16:53 Review of Systems Constitutional Denies chills, Denies fever(s), Denies lethargy and Denies weakness Eyes Denies change in vision, Denies eye discharge, Denies irritation and Denies loss of vision ENT Ears, Nose, Mouth, and Throat: Denies change in voice, Denies neck pain and Denies sore throat Cardiovascular Denies chest pain, Denies irregular heart rhythm, Denies lightheadedness, Denies palpitations, Denies dyspnea, Denies dyspnea on exertion and Denies orthopnea Respiratory Denies cough, Denies dyspnea, Denies dyspnea on exertion and Denies wheezing Gastrointestinal Gastrointestinal: Denies abdominal pain, Denies change in bowel habits, Denies diarrhea, Denies nausea and Denies vomiting Genitourinary Denies hematuria, Denies flank pain, Denies urinary incontinence and Denies urinary urgency Musculoskeletal Denies neck pain Integumentary/Breasts Denies pruritus, Denies erythema, Denies rash and Denies wounds Neurologic Denies confusion, Denies loss of vision and Denies weakness Comments: Facial droop, left arm and leg weakness Psychiatric Denies anxiety, Denies confusion, Denies depression, Denies homicidal ideation and Denies suicidal ideation Endocrine Denies palpitations Hematologic/Lymphatic Denies easy bruising Allergic/Immunologic Denies wheezing FOR[facility]LY [facility] Medical History (Updated 12/09/18 @ 17:40 by Jewell Metcalf MD) Cardiac arrhythmia (Acute) Obstructive sleep apnea on CPAP (Acute) BPH (benign prostatic hyperplasia) (Acute) TIA (transient ischemic attack) (Acute) Acute CVA (cerebrovascular accident) (Acute) Status post gamma knife treatment (Chronic) AVM (arteriovenous malformation) (Chronic) DDD (degenerative disc disease), lumbosacral (Chronic) Facet arthritis, degenerative, L5-S1 level, lumbosacral spine (Chronic) Lumbosacral spondylosis (Chronic) Synovial cyst of popliteal space [Chand], left knee (Chronic) Spinal stenosis (Chronic) Paresthesia of lower extremity (Chronic) Nephrolithiasis (Acute) Hydronephrosis, left (Acute) Ureterolithiasis (Acute) Family History Father Stroke Mother Stroke Social History household members: spouse Smoking Status: Former smoker Family History Father Stroke Mother Stroke Social History household members: spouse Smoking Status: Former smoker Exam Initial Vital Signs Initial Vital Signs: Vital Signs Temperature 99.1 F 12/09/18 13:36 Pulse Rate 63 12/09/18 13:36 Respiratory Rate 19 12/09/18 13:36 Blood Pressure 124/55 L 12/09/18 13:36 Pulse Oximetry 95 12/09/18 13:36 Const General: cooperative and well developed Nutritional Appearance: well nourished Orientation: alert, awake, oriented x3 and not confused [facility] Head: normocephalic and atraumatic Ears: external ears normal Nose: external nose normal and No nasal discharge Face and sinus: face symmetric and No dry mucous membranes Mouth: oral mucosae normal and moist mucous membranes Teeth and gingiva: dentition normal Eyes General: appearance normal, both eyes and all related structures Eyelids: eyelids normal Conjunctivae: conjunctivae normal Sclera: sclerae normal Pupils: PERRL EOM: EOM intact bilaterally Neck Neck: normal visual inspection, trachea midline, No lymphadenopathy, No midline deformity and No JVD Lymphatic: No lymphedema Chest Chest: normal inspection of the chest Resp Effort & Inspection: normal respiratory effort, able to speak in complete sentences, no respiratory distress and no use of accessory muscles Auscultation: clear to auscultation bilaterally, no rales, no rhonchi and no wheezes Cardio Rate: regular rate Rhythm: regular rhythm Heart Sounds: no click, no gallops, no murmurs and no rubs Pulses: normal peripheral pulses GI Inspection: non-distended Palpation: soft, no hepatosplenomegaly, No guarding, No pulsatile mass and No tender Auscultation: normal bowel sounds Back/Spine/Pelvis Back: No CVA tenderness Cervical Spine: cervical ROM normal and No pain with cervical ROM Thoracic/Lumbar Spine: thoracic and lumbar spine normal to inspection Skin General: no rashes or lesions noted, No jaundice and No petechiae Neuro General: alert, awake and oriented x3 Other: Patient is found to have left-sided facial droop, with some distortion of the lateral portion of his mouth. Tongue deviates to the left. Patient has near complete hemiparesis of the left arm and leg, though he is able to move his left hand and forearm slightly. Patient's NIH stroke scale score was found to be 9 at the time of my examination, the patient is noted to be actively improving even during the time of my initial exam. Extrem General: full ROM, no clubbing, cyanosis or edema, no pedal edema and no calf tenderness Psych Appearance: well kempt Mental Status: mental status grossly normal Attitude: cooperative Thought Content: normal and suicidality Judgment: judgment good Scores NIH Stroke Scale Level of Conciousness: Not alert, but arousable by minor stim to obey, answer or respond Ask month/age: Answers both questions correctly. Open/close eyes, close hand: Performs both tasks correctly Best gaze horizontal: Normal Visual savage: No visual loss Facial palsy: Partial paralysis, total or near total paralysis of lower face Left arm drift: Some effort against gravity, cannot maintain, drifts down to bed Right arm drift: No drift for full 10 sec Left leg drift: Some effort against gravity, cannot maintain, drifts down to bed Right leg drift: No drift for full 10 sec Limb ataxia: Absent Sensory on face/arms/legs: Mild to moderate sensory loss, can tell touch Best language: No aphasia, normal Dysarthria: Mild to mod,some slurring Extinction or inattention: No abnormality Total NIH Stroke scale score: 9 Course Course Narrative: Patient was not initially evaluated as a code stroke, though once I was able to review his records, I found that he would not be a candidate for tPA, due to his gamma knife procedure. The patient's head CT was negative, and he was found to be actively improving in the emergency department. The patient she had already taken his aspirin for the day. He was too big to fit in our MRI machine, so CTA was performed of the head and neck, and this was negative for any obvious occlusion. Laboratory studies were unremarkable. I spoke with Dr. Thakur, the patient's neurologist at [facility], but since she wa s in clinic, she stated her preference that I speak with her colleague registration manager. I did speak with Dr. Macias, the on-call neurologist, and we reviewed all the results together, as well as the patient's symptoms, stroke score, and history. Dr. tereso rodriguez was also able to review the workup that was done last month, when the patient was sent up to [facility] for almost exactly the same symptoms. At that time he had had MRIs performed. Doctor she recommended that at this point, Plavix be added for the next several weeks, along with the patient continue on his aspirin. Dr. Macias felt that it is possible that the patient's symptoms are coming from something else, such as an atypical migraine or atypical seizure. As there is nothing else to be gained from the patient being admitted to the hospital, and as his symptoms were now nearly completely resolved, felt that it was reasonable to discharge the patient home, with plan to take Plavix and see 1 of their physician in their neurology office as soon as available. I spoke with the patient about this, and he stated that he does have an appoint with Dr. Thakur on January 17. I have advised him to call the office and see if there is an opening sooner, but if not, to keep this appointment. At this point, we have discussed that since it is not clear exactly what is causing the patient's symptoms, and the possibility of ischemia has not been completely ruled out, the patient should return to the emergency department, should symptoms like this recur. Patient has requested something for his headache, he has been given a dose of Toradol. We have discussed home management of symptoms, as well as the usual indications for return. Patient's stroke scale is now 0. Orders Ordered: Discontinued Medications Clopidogrel Bisulfate (Plavix) 75 mg PO NOW ONE Stop: 12/09/18 17:31 Last Admin: 12/09/18 18:04 Dose: 75 mg Sodium Chloride (Normal Saline 0.9%) 1,000 mls @ 150 mls/hr IV CONT FAITH Last Infusion: 12/09/18 18:15 Dose: 0 mls/hr Admin: 12/09/18 14:35 Dose: 150 mls/hr Ketorolac Tromethamine (Toradol) 30 mg IV NOW ONE Stop: 12/09/18 17:31 Last Admin: 12/09/18 18:04 Dose: 30 mg MDM - Neuro Symptoms/Deficit Medical Records Attestation: I reviewed the patient's medical records. Lab Data Attestation: I reviewed the patient's lab results. Result diagrams: 12/09/18 13:44 12/09/18 13:44 Lab Results 12/09/18 12/09/18 12/09/18 Range/Units 13:44 13:44 13:44 WBC 10.9 (4.5-11.0) X10^3/uL RBC 5.31 (4.5-5.9) X10^6/uL Hgb 12.9 L (13.5-17.5) g/dL Hct 40.5 L (41-53) % MCV 76.2 L (80-100) fL MCH 24.2 L (26-34) PG MCHC 31.8 (30-36) % RDW 17.2 H (11.6-14.8) % Plt Count 301 (150-400) X10^3/uL Neut % (Auto) 71.8 (50-75) % Lymph % (Auto) 15.0 L (25-40) % [place] % (Auto) 10.0 (3-14) % Eos % (Auto) 2.3 (2-4) % Baso % (Auto) 0.9 (0-2) % Neut # (Auto) 7800 H (3990-1080) /uL Lymph # (Auto) 1600 (3176-6547) /uL [place] # (Auto) 1100 H (0-900) /uL Eos # (Auto) 200 (0-450) /uL Baso # (Auto) 100 (0-100) /uL PT 13.9 H (10.1-12.7) SECONDS INR 1.2 (0.9-1.3) APTT 32 (26.4-36.2) SECONDS Sodium 135 L (137-145) mmol/L Potassium 3.8 (3.4-5.1) mmol/L Chloride 102 (98-107) mmol/L Carbon Dioxide 29 (22-32) mmol/L BUN 20 (9-20) mg/dL Creatinine 0.90 (0.66-1.25) mg/dL Estimated GFR > 60.0 (>60) mL/min BUN/Creatinine Ratio 22.2 H (6-22) Glucose 146 H (80-110) mg/dL Calcium 9.0 (8.4-10.2) mg/dL Total Bilirubin 0.4 (0.2-1.3) mg/dL AST 57 (17-59) IU/L ALT 62 (21-72) IU/L Alkaline Phosphatase 79 (38-126) U/L Total Protein 7.3 (6.3-8.2) g/dL Albumin 4.0 (3.5-5.0) g/dL Globulin 3.3 (1.7-4.1) g/dL Albumin/Globulin Ratio 1.2 (1.0-2.8) Point of Care Testing Glucose POC [address] scan - head: Radiologist's impression: ICATIONS: code stroke TECHNIQUE: Noncontrast 4.5 mm thick angled axial sections acquired from the foramen magnum to the vertex, with coronal and sagittal reformats. For radiation dose reduction, the following was used: automated exposure control, adjustment of mA and/or kV according to patient size. COMPARISON: [facility], CT, CT HEAD/BRAIN WO CON, 11/10/2018, 16:37. FINDINGS: Image quality: Excellent. CSF spaces: Basal cisterns are patent. No extra-axial fluid collections. The ventricles are symmetric in size and shape. Brain: No intracranial bleeds or masses. There is cerebral volume loss for age, with resultant ventricular and sulcal prominence. There are periventricular and deep white matter chronic small vessel ischemic changes. There is intracranial internal carotid artery atherosclerosis. Skull and face: Calvarium and visualized facial bones appear intact, without suspicious lesions. Sinuses: Visualized sinuses and mastoids are clear. IMPRESSION: No acute intracranial process. Findings personally telephoned to Dr. Metcalf in the emergency department 1351 hours on 12/09/08. Dictated by: Memo Denson M.D. on 12/09/2018 at 13:48 Approved by: Memo Denson M.D. on 12/09/2018 at 13:52 CTA head neck: Radiologist's impression: PROCEDURE: CT ANGIO HEAD AND NECK INDICATIONS: stroke TECHNIQUE: Pre-contrast 4.5 mm thick sections acquired from the foramen magnum to the vertex. After the administration of intravenous contrast, 1 mm thick sections acquired from the aortic arch through the [place] of [place]. Post-contrast 4.5 mm thick sections then re- acquired from the foramen magnum to the vertex. 3-dimensional tkrryom-namjcoirz-txelepesgx (MIP) and/or volume rendering reformats were acquired of the central intracranial vasculature and neck separately. COMPARISON: [facility], CT, CT HEAD/BRAIN WO CON, 08/26/2018, 13:06. [facility], MR, MR HEAD/BRAIN WO CON, 08/26/2018, 14:59. [facility], CT, CT ANGIO HEAD AND NECK, 08/26/2018, 18:03. [facility], CT, CT HEAD/BRAIN WO CON, 11/10/2018, 16:37. [facility], CT, CT ANGIO HEAD AND NECK, 11/10/2018, 17:03. [facility], CT, CT HEAD/BRAIN WO CON, 12/09/2018, 13:37. FINDINGS: Image quality: Excellent. BRAIN: CSF spaces: Ventricles are normal in size and shape. Basal cisterns are patent. No extra-axial fluid collections. Brain: No midline shift. There is again seen a cystic lesion involving the left anterior temporal lobe. Mild increased enhancement can be seen within this region, as on series 12 image 15. No intracranial bleeds or masses. Torres-white matter interface appears intact. Skull and face: Calvarium and facial bones appear intact, without suspicious lesions. Orbits appear normal. Sinuses: Sinuses and mastoids are clear. HEAD CT ANGIOGRAPHY: Anterior circulation: Intracranial internal carotid arteries are normal in size and flow. There is a diminutive right A1 segment, with a corresponding robust left A1 segment. This is considered to be a normal developmental variant of the [place], of typically no clinical consequence. The flow within the paired anterior cerebral arteries is otherwise normal and symmetric. The flow within the middle cerebral arteries is normal and symmetric. The anterior communicating artery is seen. No aneurysms are seen. Posterior circulation: Visualized portions of the vertebral arteries demonstrate normal caliber, with the right larger than the left. The left vertebral artery largely terminates in a left posterior inferior cerebellar artery. The vertebral arteries do not clearly join to form the basilar artery. The basilar artery appears normal. Flow within the posterior cerebral arteries is normal and symmetric. No aneurysms are seen. NECK CT ANGIOGRAPHY: Carotid system: The great vessels demonstrate a conventional anatomy as they arise from the aortic arch. The origins of the common carotid arteries appear patent. The common carotid arteries demonstrate normal caliber and courses. The bifurcation regions demonstrate atherosclerotic irregularity with calcification. No hemodynamically significant stenosis can be seen of the internal carotid arteries. Posterior circulation: The origins of the vertebral arteries both appear widely patent. The more superior extracranial portions of both vertebral arteries also demonstr ate calibers, with the right vertebral artery dominant left. The left vertebral artery largely terminates in a left posterior inferior cerebellar artery. The basilar artery is unremarkable. Soft tissues: Visualized neck soft tissues demonstrate no suspicious abnormalities. Incidental note is made of an azygos lobe. Bones: No suspicious bony lesions. Visualized cervical spine appears normally aligned. Mild mucosal thickening is seen within the posterior left ethmoid air cells. IMPRESSION: No definite, acute abnormality can be seen. If there is strong clinical suspicion for an acute stroke, please consider an MRI for further evaluation, as it is more sensitive (assuming that there is no contraindication to MRI). 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 Mild increased enhancement can be seen within this region. 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 Any quantitative measurements of stenosis were performed using NASCET criteria. Dictated by: John Art M.D. on 12/09/2018 at 14:39 Approved by: John Art M.D. on 12/09/2018 at 14:47 ECG Data Attestation: I personally reviewed and interpreted this ECG as follows: (See below) Interpretation: Twelve lead EKG performed December 09, 2018, at 1:45 p.m., as follows: Regular ventricular rhythm with a rate of 64 beats per minute DE interval 166 milliseconds QRS duration 79 millisecond QTC interval 404 millisecond Occasional ectopy with PVCs No ST T wave abnormalities Interpretation: Normal sinus rhythm, no signs of acute ischemia, occasional ectopy; borderline EKG as interpreted by ED MD. Critical Care Time Critical Care Time: Yes Total Critical Care Time: 45 Attestation: Critical care time was necessary, due to CRATE ICER emergency with high probability permanent morbidity, and high probability of imminent decline without intervention. Critical care time includes interview and examination of the patient, discussion of case with EMS, ordering and reviewing laboratory tests, ordering and reviewing radiologic tests, ordering and reviewing EKG and monitor tracing, ordering pharmacological interventions and assessing effects, evaluating cardiac output and oxygenation, re-evaluating the patient, discussion of case with specialists, review of old records, and documentation. Critical care time is exclusive of separately billable procedures. Discharge Plan Departure Patient Disposition: Home Clinical Impression: TIA (transient ischemic attack) Discharge Date/Time: 12/09/18 18:33 Interventions: ED Discharge Assessment Last Done: 12/09/18 18:32 Instructions: DI for Transient Ischemic Attack Activity Restrictions/Additional Instructions: Your case has been discussed with Dr. Macias, the on-call neurologist for Dr. Thakur's group. Your CT scans look good today, and he feels that while you may have had a transient stroke, you also may be having the symptoms for other reasons, such as an atypical seizure or an atypical migraine. He would like you to take a medicine that will work with your aspirin to help prevent any further strokes from occurring. You should take this as directed, once daily, and co ntinue your aspirin, until you see Dr. Thakur in clinic in January. You may call Dr. Thakur's clinic to see if you may be seen sooner than this, but otherwise, keep the appointment you already have. For now, if you develop recurrent symptoms such as you have had today, please return to the emergency department. Prescriptions: New clopidogrel [Plavix] 75 mg tablet 75 mg PO DAILY Qty: 45 RF: 0 No Action finasteride 5 MG tablet 5 mg PO DAILY Qty: 0 RF: 0 Blue Emu 1 applic Topical PRN PRN (Reason: muscle pain) RF: 0 omeprazole 20 mg capsule,delayed release(DR/EC) 40 mg PO BID RF: 0 amlodipine 10 mg tablet 10 mg PO DAILY RF: 0 cyclobenzaprine 10 mg Tablet 10 mg PO TID PRN (Reason: Muscle Spasm) Qty: 0 RF: 0 clonidine HCl 0.1 mg Tablet 0.1 mg PO BID Qty: 0 RF: 0 aspirin 325 mg Tablet,Delayed Release (Dr/Ec) 325 mg PO DAILY Qty: 30 RF: 0 atorvastatin 40 mg tablet 40 mg PO QPM RF: 0 atenolol 100 mg tablet 100 mg PO DAILY RF: 0 metformin 500 mg tablet 500 mg PO BID RF: 0 ferrous sulfate 324 mg (65 mg iron) tablet,delayed release (DR/EC) 324 mg PO DAILY RF: 0 allopurinol 300 mg tablet 300 mg PO DAILY RF: 0 montelukast 10 mg tablet 10 mg PO QPM RF: 0 hydrochlorothiazide 25 mg tablet 25 mg PO DAILY RF: 0 tamsulosin 0.4 mg capsule 0.4 mg PO DAILY RF: 0 celecoxib [Celebrex] 200 mg capsule 200 mg PO DAILY Qty: 90 RF: 2 Referrals: Low Rush MD [Primary Care Provider] - Stand Alone Forms: Work Release Note
[2018-12-09] MEDS: SODIUM CHLORIDE 0.9% 1,000 ML 150 ML IV (14:35)
--- NOTE | 2018-12-09 15:06 | DI.CT.S_ITS ---
PROCEDURE: CT ANGIO HEAD AND NECK INDICATIONS: stroke TECHNIQUE: Pre-contrast 4.5 mm thick sections acquired from the foramen magnum to the vertex. After the administration of intravenous contrast, 1 mm thick sections acquired from the aortic arch through the [place] of [place]. Post-contrast 4.5 mm thick sections then re-acquired from the foramen magnum to the vertex. 3-dimensional ckwecaz-wdfassbdc-dlkxcumnen (MIP) and/or volume rendering reformats were acquired of the central intracranial vasculature and neck separately. COMPARISON: [facility], CT, CT HEAD/BRAIN WO CON, 08/26/2018, 13:06. [facility], MR, MR HEAD/BRAIN WO CON, 08/26/2018, 14:59. [facility], CT, CT ANGIO HEAD AND NECK, 08/26/2018, 18:03. [facility], CT, CT HEAD/BRAIN WO CON, 11/10/2018, 16:37. [facility], CT, CT ANGIO HEAD AND NECK, 11/10/2018, 17:03. [facility], CT, CT HEAD/BRAIN WO CON, 12/09/2018, 13:37. FINDINGS: Image quality: Excellent. BRAIN: CSF spaces: Ventricles are normal in size and shape. Basal cisterns are patent. No extra-axial fluid collections. Brain: No midline shift. There is again seen a cystic lesion involving the left anterior temporal lobe. Mild increased enhancement can be seen within this region, as on series 12 image 15. No intracranial bleeds or masses. Torres-white matter interface appears intact. Skull and face: Calvarium and facial bones appear intact, without suspicious lesions. Orbits appear normal. Sinuses: Sinuses and mastoids are clear. HEAD CT ANGIOGRAPHY: Anterior circulation: Intracranial internal carotid arteries are normal in size and flow. There is a diminutive right A1 segment, with a corresponding robust left A1 segment. This is considered to be a normal developmental variant of the [place] of [place], of typically no clinical consequence. The flow within the paired anterior cerebral arteries is otherwise normal and symmetric. The flow within the middle cerebral arteries is normal and symmetric. The anterior communicating artery is seen. No aneurysms are seen. Posterior circulation: Visualized portions of the vertebral arteries demonstrate normal caliber, with the right larger than the left. The left vertebral artery largely terminates in a left posterior inferior cerebellar artery. The vertebral arteries do not clearly join to form the basilar artery. The basilar artery appears normal. Flow within the posterior cerebral arteries is normal and symmetric. No aneurysms are seen. NECK CT ANGIOGRAPHY: Carotid system: The great vessels demonstrate a conventional anatomy as they arise from the aortic arch. The origins of the common carotid arteries appear patent. The common carotid arteries demonstrate normal caliber and courses. The bifurcation regions demonstrate atherosclerotic irregularity with calcification. No hemodynamically significant stenosis can be seen of the internal carotid arteries. Posterior circulation: The origins of the vertebral arteries both appear widely patent. The more superior extracranial portions of both vertebral arteries also demonstrate calibers, with the right vertebral artery dominant left. The left vertebral artery largely terminates in a left posterior inferior cerebellar artery. The basilar artery is unremarkable. Soft tissues: Visualized neck soft tissues demonstrate no suspicious abnormalities. Incidental note is made of an azygos lobe. Bones: No suspicious bony lesions. Visualized cervical spine appears normally aligned. Mild mucosal thickening is seen within the posterior left ethmoid air cells. IMPRESSION: No definite, acute abnormality can be seen. If there is strong clinical suspicion for an acute stroke, please consider an MRI for further evaluation, as it is more sensitive (assuming that there is no contraindication to MRI). 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 Mild increased enhancement can be seen within this region. 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 Any quantitative measurements of stenosis were performed using NASCET criteria. Dictated by: John Art M.D. on 12/09/2018 at 14:39 Approved by: John Art M.D. on 12/09/2018 at 14:47
[2018-12-09] MEDS: KETOROLAC 60 MG/2 ML VIAL 30 MG IV (18:04)
[2018-12-09] MEDS: CLOPIDOGREL 75 MG TABLET PO (18:04)
== END 2018-12-09 18:33 | disposition home or self-care (01) ==
PROVIDERS: Emergency Provider Emergency Medicine; PCP Family Medicine
DX: G45.9 Transient cerebral ischemic attack, unspecified (principal); G81.94 Hemiplegia, unspecified affecting left nondominant side
CPT/HCPCS: 70450; 70496; 70498; 80053; 82962; 85025; 85610; 85730; 93005; 96361; 96374; 99285; 99291; J1885; Q9967

== ENCOUNTER 2018-12-13 23:13 | Emergency (ER) | payer OTHER, SELFPAY ==
[2018-11-10 20:00] VITALS: BMI 44.4
--- NOTE | 2018-12-13 23:19 | DI.CT.S_ITS ---
PROCEDURE: CT HEAD/BRAIN WO CON INDICATIONS: large stroke TECHNIQUE: Noncontrast 4.5 mm thick angled axial sections acquired from the foramen magnum to the vertex, with coronal and sagittal reformats. For radiation dose reduction, the following was used: automated exposure control, adjustment of mA and/or kV according to patient size. COMPARISON: [facility], CT, CT ANGIO HEAD AND NECK, 12/09/2018, 15:13. [facility], CT, CT HEAD/BRAIN WO CON, 12/09/2018, 13:37. FINDINGS: Image quality: Excellent. CSF spaces: Basal cisterns are patent. No extra-axial fluid collections. The ventricles are symmetric in size and shape. Brain: Vasogenic edema involving the left temporal lobe is stable compared to 08/15/2018. Cystic lesion with trace dependently layering internal hemorrhage in the left temporal lobe is stable compared to prior examination. Small hypodensity in the right centrum semiovale is stable compared to prior exam. There is cerebral volume loss for age, with resultant ventricular and sulcal prominence. There are periventricular and deep white matter chronic small vessel ischemic changes. There is intracranial internal carotid artery atherosclerosis. Skull and face: Calvarium and visualized facial bones appear intact, without suspicious lesions. Sinuses: Visualized sinuses and mastoids are clear. IMPRESSION: 1. Vasogenic edema and small cystic lesion with internal hemorrhage involving the left temporal lobe is stable compared to 12/09/18. 2. No definite infarct. If there is high index of clinical suspicion for infarct, then MRI of the brain with and without contrast should be performed for further evaluation. Dictated by: Michelle Vazquez MD, PhD on 12/14/2018 at 7:16 Approved by: Michelle Vazquez MD, PhD on 12/14/2018 at 7:22
--- NOTE | 2018-12-13 23:19 | DI.CT.S_ITS ---
PROCEDURE: CT ANGIO HEAD AND NECK INDICATIONS: large stroke suspected TECHNIQUE: Pre-contrast 4.5 mm thick sections acquired from the foramen magnum to the vertex. After the administration of intravenous contrast, 1 mm thick sections acquired from the aortic arch through the [place] of [place]. Post-contrast 4.5 mm thick sections then re-acquired from the foramen magnum to the vertex. 3-dimensional lqgiwww-iqrurxtgl-nrmjxsqxzg (MIP) and/or volume rendering reformats were acquired of the central intracranial vasculature and neck separately. COMPARISON: [facility], CT, CT ANGIO HEAD AND NECK, 12/09/2018, 15:13. FINDINGS: Image quality: Excellent. BRAIN: CSF spaces: Ventricles are normal in size and shape. Basal cisterns are patent. No extra-axial fluid collections. Brain: No midline shift. No intracranial bleed. Patient's known cystic lesion involving left anterior temporal lobe is unchanged in size and appearance. Mild increased enhancement is again noted in this region unchanged from previous study. Torres-white matter interface appears intact. Skull and face: Calvarium and facial bones appear intact, without suspicious lesions. Orbits appear normal. Sinuses: Sinuses and mastoids are clear. HEAD CT ANGIOGRAPHY: Anterior circulation: Intracranial internal carotid arteries are normal in size and flow. Diminutive right A1 segment is again seen and unchanged from previous study and is considered a congenital process. The flow within the paired anterior cerebral arteries is normal and symmetric. The flow within the middle cerebral arteries is normal and symmetric. The anterior communicating artery is seen. No aneurysms are seen. Posterior circulation: Visualized portions of the vertebral arteries demonstrate normal caliber, and join to form a normal appearing basilar artery. Flow within the posterior cerebral arteries is normal and symmetric. No aneurysms are seen. NECK CT ANGIOGRAPHY: Carotid system: The great vessels demonstrate a conventional anatomy as they arise from the aortic arch. The origins of the common carotid arteries appear patent. The common carotid arteries demonstrate normal caliber and courses. The bifurcation regions are both widely patent. The internal carotid arteries demonstrate normal calibers and courses. Posterior circulation: The origins of the vertebral arteries both appear widely patent. The more superior extracranial portions of both vertebral arteries also demonstrate normal courses and calibers. They join to form a normal appearing basilar artery. Soft tissues: Visualized neck soft tissues demonstrate no suspicious abnormalities. Bones: No suspicious bony lesions. Visualized cervical spine appears normally aligned. IMPRESSION: 1. No significant changes from 12/09/18 study. Stable left cystic area in left temporal region consistent with prior gamma knife treatment of AVM. 2. No hemodynamically significant stenosis or aneurysm is seen in the intracranial circulation. 3. No hemodynamically significant stenosis are noted in bilateral carotid arteries or vertebral arteries. No discrepancies. Any quantitative measurements of stenosis were performed using NASCET criteria. Dictated by: Trell Cutler M.D. on 12/14/2018 at 8:19 Approved by: Trell Cutler M.D. on 12/14/2018 at 8:25
--- NOTE | 2018-12-13 23:21 | ED.AMS ---
HPI - Altered Mental Status General Chief Complaint: Altered Mental Status Stated Complaint: stroke like symtoms Time Seen by Provider: 12/13/18 23:15 Source: patient and family Mode of arrival: wheelchair Limitations: altered mental status History of Present Illness HPI narrative: 63-year-old male former smoker with history of hypertension, hyperlipidemia, BPH, AVM, gamma knife procedure whom presents with significant stroke-like symptoms that started at about 8:00 p.m. tonight. His symptoms include left-sided facial weakness, difficulty with speech and inability to use left arm and leg. He has got a mild headache. Symptoms have been rather consistent. Patient was seen and evaluated under similar circumstances on December 09 and had resolution of symptoms after 4-5 hours. Additionally he has had a few other episodes of similar presentation which presented very much like stroke and end up resolving. His last MRI was a few months ago at an outside facility. Related Data Home Medications Medication Instructions Recorded Confirmed finasteride 5 mg PO DAILY #0 12/16/12 12/09/18 allopurinol 300 mg tablet 300 mg PO DAILY 05/15/18 12/09/18 hydrochlorothiazide 25 mg tablet 25 mg PO DAILY 05/15/18 12/09/18 montelukast 10 mg tablet 10 mg PO QPM 05/15/18 12/09/18 tamsulosin 0.4 mg capsule 0.4 mg PO DAILY 05/15/18 12/09/18 Blue Emu 1 applic TOPICAL PRN PRN 08/26/18 12/09/18 omeprazole 40 mg PO BID 08/26/18 12/09/18 amlodipine 10 mg PO DAILY 11/11/18 12/09/18 clonidine HCl 0.1 mg PO BID #0 11/11/18 12/09/18 cyclobenzaprine 10 mg PO TID PRN #0 11/11/18 12/09/18 atenolol 100 mg PO DAILY 12/09/18 12/09/18 atorvastatin 40 mg PO QPM 12/09/18 12/09/18 ferrous sulfate 324 mg PO DAILY 12/09/18 12/09/18 metformin 500 mg PO BID 12/09/18 12/09/18 Previous Rx's Medication Instructions Recorded celecoxib 200 mg capsule 200 mg PO DAILY #90 cap 08/14/18 aspirin 325 mg PO DAILY #30 tab 04/03/19 clopidogrel [Plavix] 75 mg PO DAILY #45 tab 12/09/18 Allergies Allergy/AdvReac Type Severity Reaction Status Date / Time losartan Allergy Severe Anaphylaxis Verified 11/10/18 16:53 carbamazepine [CARBAMAZEPINE] Allergy Mild Verified 11/10/18 16:53 lamotrigine [LAMOTRIGINE] Allergy Mild Verified 11/10/18 16:53 Review of Systems Constitutional Denies chills, Denies fever(s), Denies lethargy and Denies weakness Eyes Denies change in vision, Denies eye discharge, Denies irritation and Denies loss of vision ENT Ears, Nose, Mouth, and Throat: Denies change in voice, Denies neck pain and Denies sore throat Cardiovascular Denies chest pain, Denies irregular heart rhythm, Denies lightheadedness, Denies palpitations, Denies dyspnea, Denies dyspnea on exertion and Denies orthopnea Respiratory Denies cough, Denies dyspnea, Denies dyspnea on exertion and Denies wheezing Gastrointestinal Gastrointestinal: Denies abdominal pain, Denies change in bowel habits, Denies diarrhea, Denies nausea and Denies vomiting Genitourinary Denies hematuria, Denies flank pain, Denies urinary incontinence and Denies urinary urgency Musculoskeletal Denies neck pain Integumentary/Breasts Denies pruritus, Denies erythema, Denies rash and Denies wounds Neurologic Reports abnormal speech, Denies confusion, Reports lack of coordination, Reports focal weakness, Denies loss of vision, Reports sensory deficit, Reports paresthesias and Denies weakness Psychiatric Denies anxiety, Denies confusion, Denies depression, Denies homicidal ideation and Denies suicidal ideation Endocrine Denies palpitations Hematologic/Lymphatic Denies easy bruising Allergic/Immunologic Denies wheezing Exam Narrative Exam Narrative: GENERAL: Critically ill patients with obvious critical illness, GCS 15, morbidly obese HEAD: Atraumatic. Normocephalic. No temporal or scalp tenderness. EYES: Pupils equal round and reactive. Extraocular motions intact. No scleral icterus. No injection or drainage. ENT: Nose without bleeding, purulent drainage or septal hematoma. Throat without erythema, tonsillar hypertrophy or exudate. Uvula midline. Airway patent. NECK: Trachea midline. No JVD or lymphadenopathy. Supple, nontender, no meningeal signs. CARDIOVASCULAR: Regular rate and rhythm without murmurs, gallops, or rubs. RESPIRATORY: Clear to auscultation. Breath sounds equal bilaterally. No wheezes, rales, or rhonchi. GASTROINTESTINAL: Abdomen soft, non-tender, nondistended. No hepato-splenomegaly, or palpable masses. No guarding. EXTREMITIES: No clubbing, cyanosis, or edema. No joint tenderness, effusion, or edema noted. BACK: Nontender without deformity or crepitance. No flank tenderness. SKIN: No rash or erythema. Initial Vital Signs Initial Vital Signs: Vital Signs Temperature 98.9 F 12/13/18 23:49 Pulse Rate 65 12/13/18 23:49 Respiratory Rate 32 H 12/13/18 23:49 Blood Pressure 118/60 12/13/18 23:49 Pulse Oximetry 94 12/13/18 23:49 Scores NIH Stroke Scale Level of Conciousness: Alert, keenly responsive Ask month/age: Answers both questions correctly. Open/close eyes, close hand: Performs both tasks correctly Best gaze horizontal: Normal Visual savage: No visual loss Facial palsy: Partial paralysis, total or near total paralysis of lower face Left arm drift: No movement Right arm drift: Drifts down, not to bed Left leg drift: Some effort against gravity, cannot maintain, drifts down to bed Right leg drift: No drift for full 10 sec Limb ataxia: Absent Sensory on face/arms/legs: Normal, no sensory loss Best language: No aphasia, normal Dysarthria: Severe, unintelligible Extinction or inattention: No abnormality Total NIH Stroke scale score: 11 Course Orders Ordered: ED Orders 12/13/18 23:19 CT angio head and neck Stat CT head/brain wo con Stat Urine Drug Screen, Rapid Stat EKG-12 Lead Stat 12/13/18 23:25 Basic Metabolic Panel Stat Complete Blood Count AUTO DIFF Stat Partial Thromboplastin Time Stat Prothrombin Time INR Stat 12/14/18 02:40 Urine Microscopic Stat Sodium Chloride (Normal Saline 0.9%) 1,000 mls @ 150 mls/hr IV CONT FAITH Last Admin: 12/14/18 00:03 Dose: 150 mls/hr Reevaluation(s) Reevaluation #1: patient has near complete resolution of symptoms Consultations Consultation #1: call to Stroke Neurologist at [facility], reviewed case. She states there is nothing interventional at this time, ok for local admission. Consultation #2: call to hospitalist, due to complexity of patient past history, increasing frequency and severity of episodes. Consultation #3: Called to the hospitalist at [facility] whom is happy to accept the patient, knowing that I have already spoken with neurologist twice Vital Signs - 8 hr 12/13/18 23:49 12/14/18 01:30 Temperature 98.9 F Pulse Rate 65 62 Respiratory Rate 32 H 28 H Blood Pressure 118/60 Blood Pressure [Right Arm] 122/72 Pulse Oximetry 94 99 MDM - Altered Mental Status Lab Data Result diagrams: 12/13/18 23:25 12/13/18 23:25 Lab Results 12/13/18 12/13/18 12/13/18 Range/Units 23:25 23:25 23:25 WBC 14.7 H (4.5-11.0) X10^3/uL RBC 5.39 (4.5-5.9) X10^6/uL Hgb 12.9 L (13.5-17.5) g/dL Hct 41.1 (41-53) % MCV 76.3 L (80-100) fL MCH 23.9 L (26-34) PG MCHC 31.4 (30-36) % RDW 17.3 H (11.6-14.8) % Plt Count 344 (150-400) X10^3/uL Neut % (Auto) 74.0 (50-75) % Lymph % (Auto) 14.0 L (25-40) % Faulk % (Auto) 7.7 (3-14) % Eos % (Auto) 3.0 (2-4) % Baso % (Auto) 1.3 (0-2) % Neut # (Auto) 25322 H (2854-9352) /uL Lymph # (Auto) 2000 (6969-1102) /uL Faulk # (Auto) 1100 H (0-900) /uL Eos # (Auto) 400 (0-450) /uL Baso # (Auto) 200 H (0-100) /uL PT 13.2 H (10.1-12.7) SECONDS INR 1.1 (0.9-1.3) APTT 33 (26.4-36.2) SECONDS Sodium 139 (137-145) mmol/L Potassium 3.9 (3.4-5.1) mmol/L Chloride 100 (98-107) mmol/L Carbon Dioxide 30 (22-32) mmol/L BUN 22 H (9-20) mg/dL Creatinine 0.90 (0.66-1.25) mg/dL Estimated GFR > 60.0 (>60) mL/min BUN/Creatinine Ratio 24.4 H (6-22) Glucose 130 H (80-110) mg/dL Calcium 9.5 (8.4-10.2) mg/dL Urine RBC (0-5/HPF) Urine WBC (0-5/HPF) Urine Bacteria (None) Ur Culture Indicated? Urine Opiates Screen (Negative) Ur Oxycodone Screen (Negative) Urine Methadone Screen (Negative) Ur Barbiturates Screen (Negative) U Tricyclic Antidepress (Negative) Ur Phencyclidine Scrn (Negative) Ur Amphetamines Screen (Negative) U Methamphetamines Scrn (Negative) Ur MDMA Scrn (Ecstasy) (Negative) U Benzodiazepines Scrn (Negative) Urine Cocaine Screen (Negative) U Marijuana (THC) Screen (Negative) 12/14/18 12/14/18 Range/Units 02:40 02:40 WBC (4.5-11.0) X10^3/uL RBC (4.5-5.9) X10^6/uL Hgb (13.5-17.5) g/dL Hct (41-53) % MCV (80-100) fL MCH (26-34) PG MCHC (30-36) % RDW (11.6-14.8) % Plt Count (150-400) X10^3/uL Neut % (Auto) (50-75) % Lymph % (Auto) (25-40) % Faulk % (Auto) (3-14) % Eos % (Auto) (2-4) % Baso % (Auto) (0-2) % Neut # (Auto) (2951-1164) /uL Lymph # (Auto) (7446-1719) /uL Faulk # (Auto) (0-900) /uL Eos # (Auto) (0-450) /uL Baso # (Auto) (0-100) /uL PT (10.1-12.7) SECONDS INR (0.9-1.3) APTT (26.4-36.2) SECONDS Sodium (137-145) mmol/L Potassium (3.4-5.1) mmol/L Chloride (98-107) mmol/L Carbon Dioxide (22-32) mmol/L BUN (9-20) mg/dL Creatinine (0.66-1.25) mg/dL Estimated GFR (>60) mL/min BUN/Creatinine Ratio (6-22) Glucose (80-110) mg/dL Calcium (8.4-10.2) mg/dL Urine RBC 0-1/hpf (0-5/HPF) Urine WBC 0-1/hpf (0-5/HPF) Urine Bacteria None seen (None) Ur Culture Indicated? Cult not indicated Urine Opiates Screen Negative (Negative) Ur Oxycodone Screen Negative (Negative) Urine Methadone Screen Negative (Negative) Ur Barbiturates Screen Negative (Negative) U Tricyclic Antidepress Negative (Negative) Ur Phencyclidine Scrn Negative (Negative) Ur Amphetamines Screen Negative (Negative) U Methamphetamines Scrn Negative (Negative) Ur MDMA Scrn (Ecstasy) Negative (Negative) U Benzodiazepines Scrn Negative (Negative) Urine Cocaine Screen Negative (Negative) U Marijuana (THC) Screen Negative (Negative) Urine Dip Bedside Urine Glucose Negative Bedside Urine Bilirubin - Negative Bedside Urine Ketone - Negative Urine Specific [employer] 1.025 Bedside Urine Occult Blood - Negative Bedside Urine pH 5.5 Bedside Urine Protein - Negative Bedside Urine Urobilinogen - Negative Bedside Urine Nitrite - Negative Bedside Urine Leukocytes + 70 Esterase Critical Care Time Critical Care Time: Yes Total Critical Care Time: 35 Attestation: The high probability of a clinically significant, sudden or life threatening deterioration of the [neurological] system(s) required my full and direct attention, intervention and personal management. The aggregate critical care time was 35 minutes. This time is in addition to time spent performing reported procedures but includes the following: x Data Review and interpretation x Patient assessment and monitoring of vital signs x Documentation x Medication orders and management Discharge Plan Departure Patient Disposition: [facility] Clinical Impression: Brain TIA Prescriptions: No Action finasteride 5 MG tablet 5 mg PO DAILY Qty: 0 RF: 0 Blue Emu 1 applic Topical PRN PRN (Reason: muscle pain) RF: 0 omeprazole 20 mg capsule,delayed release(DR/EC) 40 mg PO BID RF: 0 amlodipine 10 mg tablet 10 mg PO DAILY RF: 0 cyclobenzaprine 10 mg Tablet 10 mg PO TID PRN (Reason: Muscle Spasm) Qty: 0 RF: 0 clonidine HCl 0.1 mg Tablet 0.1 mg PO BID Qty: 0 RF: 0 aspirin 325 mg Tablet,Delayed Release (Dr/Ec) 325 mg PO DAILY Qty: 30 RF: 0 atorvastatin 40 mg tablet 40 mg PO QPM RF: 0 atenolol 100 mg tablet 100 mg PO DAILY RF: 0 metformin 500 mg tablet 500 mg PO BID RF: 0 ferrous sulfate 324 mg (65 mg iron) tablet,delayed release (DR/EC) 324 mg PO DAILY RF: 0 clopidogrel [Plavix] 75 mg tablet 75 mg PO DAILY Qty: 45 RF: 0 allopurinol 300 mg tablet 300 mg PO DAILY RF: 0 montelukast 10 mg tablet 10 mg PO QPM RF: 0 hydrochlorothiazide 25 mg tablet 25 mg PO DAILY RF: 0 tamsulosin 0.4 mg capsule 0.4 mg PO DAILY RF: 0 celecoxib [Celebrex] 200 mg capsule 200 mg PO DAILY Qty: 90 RF: 2 Referrals: Low Rush MD [Primary Care Provider] -
[2018-12-13 23:37] LABS: Add Manual Diff / Slide Review NO; Basophils Absolute Auto 200 /uL (0-100); Basophils Percent Auto 1.3 % (0-2); Eosinophils Absolute Auto 400 /uL (0-450); Hematocrit 41.1 % (41-53); Hemoglobin 12.9 g/dL (13.5-17.5); Lymphocytes Absolute Auto 2000 /uL (1100-4500); Mean Corpuscular HGB Conc 31.4 % (30-36); Mean Corpuscular Hemoglobin 23.9 PG (26-34); Mean Corpuscular Volume 76.3 fL (80-100); Monocytes Absolute Auto 1100 /uL (0-900); Monocytes Percent Auto 7.7 % (3-14); Neutrophils Absolute Auto 10900 /uL (1500-7000); Platelet Count 344 X10^3/uL (150-400); Red Blood Cell Count 5.39 X10^6/uL (4.5-5.9); Red Cell Distribution Width 17.3 % (11.6-14.8); White Blood Cell Count 14.7 X10^3/uL (4.5-11.0)
[2018-12-13 23:42] LABS: INR 1.1 (0.9-1.3); Prothrombin Time 13.2 SECONDS (10.1-12.7)
[2018-12-13 23:45] LABS: PTT Partial Thromboplastin Tim 33 SECONDS (26.4-36.2)
[2018-12-13 23:46] LABS: BUN Creatinine Ratio 24.4 (6-22); Blood Urea Nitrogen 22 mg/dL (9-20); Calcium 9.5 mg/dL (8.4-10.2); Carbon Dioxide 30 mmol/L (22-32); Chloride 100 mmol/L (98-107); Estimated Glomerular Filt Rate > 60.0 mL/min (>60); Glucose 130 mg/dL (80-110); HEMOLYSIS < 15 (0-50); Potassium 3.9 mmol/L (3.4-5.1); Sodium 139 mmol/L (137-145)
[2018-12-13 23:49] VITALS: BP 118/60; PULSE 65; RESP 32; TEMP 37.2; O2SAT 94
[2018-12-14] MEDS: SODIUM CHLORIDE 0.9% 1,000 ML 150 ML IV (00:03)
[2018-12-14 01:30] VITALS: BP 122/72; PULSE 62; RESP 28; O2SAT 99
--- NOTE | 2018-12-14 02:19 | PC.NURSE ---
Patient symptoms resolved. Pt moved self to side of bed, stood without assistance, used urinal without assistance and got back into bed without assistance. Pt speech is clear with appropriate word usage.
[2018-12-14 02:43] LABS: Bacteria Urine None Seen
[2018-12-14 02:51] LABS: Urine Amphetamines Negative (Negative); Urine Barbiturates Negative (Negative); Urine Benzodiazepines Negative (Negative); Urine Cocaine Negative (Negative); Urine MDMA Negative (Negative); Urine Methadone Negative (Negative); Urine Methamphetamines Negative (Negative); Urine Morphine/Opi cutoff 2000 Negative (Negative); Urine Oxycodone Negative (Negative); Urine Phencyclidine Negative (Negative); Urine Tetrahydrocannabinol Negative (Negative); Urine Tricyclic Antidepressant Negative (Negative)
[2018-12-14 02:53] LABS: Culture Indicated Urine Cult Not Indicated; RBC Urine 0-1/HPF (0-5/HPF); WBC Urine 0-1/HPF (0-5/HPF)
[2018-12-14 10:20] VITALS: BP 138/72; PULSE 80; RESP 14; O2SAT 98
--- NOTE | 2018-12-14 10:24 | PC.NURSE ---
Please see print out for frequent vital signs.
== END 2018-12-14 10:20 | disposition short-term general hospital (02) ==
PROVIDERS: Emergency Provider Emergency Medicine; PCP Family Medicine
DX: G45.9 Transient cerebral ischemic attack, unspecified (principal)
CPT/HCPCS: 36591; 70450; 70496; 70498; 80048; 80305; 81003; 81015; 85025; 85610; 85730; 93005; 96360; 96361; 99285; Q9967

== ENCOUNTER 2019-08-11 16:17 | Emergency (ER) | payer OTHER, SELFPAY ==
[2018-11-10 20:00] VITALS: BMI 44.4
--- NOTE | 2019-08-11 16:32 | DI.CT.S_ITS ---
PROCEDURE: CT ANGIO HEAD AND NECK INDICATIONS: left hand weakness, facial droop, dysarthria, 1530 started. TECHNIQUE: Noncontrast images were previously performed and are not repeated. After the administration of intravenous contrast, 1 mm thick sections acquired from the aortic arch through the [place] of [place]. Post-contrast 4.5 mm thick sections then re-acquired from the foramen magnum to the vertex. 3-dimensional iunujpq-pjwpyiyrb-joahitdzey (MIP) and/or volume rendering reformats were acquired of the central intracranial vasculature and neck separately. COMPARISON: [facility], CT, CT ANGIO HEAD AND NECK, 12/09/2018, 15:13. [facility], CT, CT HEAD/BRAIN WO CON, 12/13/2018, 23:21. [facility], CT, CT ANGIO HEAD AND NECK, 12/13/2018, 23:27. [facility], CT, CT HEAD/BRAIN WO CON, 08/11/2019, 16:23. FINDINGS: Image quality: Excellent. BRAIN: CSF spaces: Ventricles are normal in size and shape. Basal cisterns are patent. No extra-axial fluid collections. Brain: No midline shift. Stable encephalomalacia can be seen on the left, which is centered within the left temporal lobe. There is increased enhancement seen within this region, as before, as on series 14 images 12 through 14. No intracranial bleeds or masses. Torres-white matter interface appears intact. Skull and face: Calvarium and facial bones appear intact, without suspicious lesions. Orbits appear normal. Note is made of bilateral lens replacements. Sinuses: Sinuses and mastoids are clear. HEAD CT ANGIOGRAPHY: Anterior circulation: Intracranial internal carotid arteries are normal in size and flow. There is a diminutive right A1 segment, with a corresponding robust left A1 segment. This is considered to be a normal developmental variant of the [place] of [place], of typically no clinical consequence. The flow within the paired anterior cerebral arteries is otherwise normal and symmetric. The flow within the middle cerebral arteries is normal and symmetric. The anterior communicating artery is seen. No aneurysms are seen. Posterior circulation: The right vertebral artery is dominant the left. The left vertebral artery largely terminates in the left posterior inferior cerebellar artery and does not clearly join with the right vertebral artery does not form the basilar artery. There is a normal appearing basilar artery. Flow within the posterior cerebral arteries is normal and symmetric. No aneurysms are seen. NECK CT ANGIOGRAPHY: Carotid system: The great vessels demonstrate a conventional anatomy as they arise from the aortic arch. The origins of the common carotid arteries appear patent. The common carotid arteries demonstrate normal caliber and courses. The bifurcation regions demonstrate atherosclerotic calcification and irregularity, yet without a hemodynamically significant stenosis seen. Posterior circulation: The origins of the vertebral arteries both appear widely patent. The more superior extracranial portions of both vertebral arteries also demonstrate normal courses and calibers, with note made that the right vertebral artery is dominant to the left.. They join to form a normal appearing basilar artery. Soft tissues: Visualized neck soft tissues demonstrate no suspicious abnormalities. Bones: No suspicious bony lesions. Visualized cervical spine appears normally aligned. Age-appropriate bony degenerative changes are seen. IMPRESSION: No hemodynamically significant stenosis can be seen within the intracranial arteries are within the neck. The right vertebral artery is dominant to the left. Focal encephalomalacia is seen on the left, which is centered within the left upper lobe. The appearance is stable, and the appearance is stable with the known clinical history of gamma knife treatment of an AVM. Generalized enhancement can be seen within this region, as before. 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 Any quantitative measurements of stenosis were performed using NASCET criteria. Dictated by: John Art M.D. on 08/11/2019 at 16:01 Approved by: John Art M.D. on 08/11/2019 at 16:08
--- NOTE | 2019-08-11 16:32 | ED_ITS ---
HPI - Neuro Symptoms/Deficit General Chief Complaint: Neuro Symptoms/Deficit Stated Complaint: Left sided weakness Time Seen by Provider: 08/11/19 16:29 Source: patient, EMS and old records reviewed Mode of arrival: EMS Limitations: no limitations History of Present Illness HPI Narrative: 64-year-old male comes to the emergency department with complaint of left-sided weakness and his left hand spasming patient states he has had left-sided droop and even had dysarthria. He feels like can't talk because it's so tight. He did not appreciate any left lower extremity weakness. Patient states he has had these episodes intermittently on and off. He has had multiple ER visits for the same. He states he typically does not go to the hospital but when it becomes very severe he does. Patient has been transferred and kept here in the hospital in the past. He has a history of gamma knife for AVM repair. He has not been a candidate for tPA in the past secondary to his gamma knife procedure. Today patient states that episode happened while he was at work started about 330 this afternoon. With EMS they state it got worse and he was unable to speak although he continued to be alert. He denies headache. He states he'd some tingling in his fingers. He states that is improving. He denies chest pain, no shortness of breath, no nausea or vomiting. No issues with bowel movements. Patient states that he has not been having as much frequency since he had Plavix added on at his last ER visit. He is not currently taking aspirin. Dr. Rush is his primary care, he sees Dr. Thakur as his neurologist in [place]. He states he has had 2 EEGs 1 remotely and 1 recently that were both negative while having episodes like this. He is supposed to see a movement doctor in [facility] this upcoming week. Related Data Home Medications Medication Instructions Recorded Confirmed finasteride 5 mg PO DAILY #0 12/16/12 12/14/18 allopurinol 300 mg tablet 300 mg PO DAILY 05/15/18 12/14/18 hydrochlorothiazide 25 mg tablet 25 mg PO DAILY 05/15/18 12/14/18 montelukast 10 mg tablet 10 mg PO QPM 05/15/18 12/14/18 tamsulosin 0.4 mg capsule 0.4 mg PO DAILY 05/15/18 12/14/18 Blue Emu 1 applic TOPICAL PRN PRN 08/26/18 12/14/18 omeprazole 40 mg PO BID 08/26/18 12/14/18 amlodipine 10 mg PO DAILY 11/11/18 12/14/18 clonidine HCl 0.1 mg PO BID #0 11/11/18 12/14/18 cyclobenzaprine 10 mg PO TID PRN #0 11/11/18 12/14/18 atenolol 100 mg PO DAILY 12/09/18 12/14/18 atorvastatin 40 mg PO QPM 12/09/18 12/14/18 ferrous sulfate 324 mg PO DAILY 12/09/18 12/14/18 metformin 500 mg PO BID 12/09/18 12/14/18 Previous Rx's Medication Instructions Recorded celecoxib 200 mg capsule 200 mg PO DAILY #90 cap 08/14/18 aspirin 325 mg PO DAILY #30 tab 11/11/18 clopidogrel [Plavix] 75 mg PO DAILY #45 tab 12/09/18 Allergies Allergy/AdvReac Type Severity Reaction Status Date / Time losartan Allergy Severe Anaphylaxis Verified 11/10/18 16:53 carbamazepine [CARBAMAZEPINE] Allergy Mild Verified 11/10/18 16:53 lamotrigine [LAMOTRIGINE] Allergy Mild Verified 11/10/18 16:53 Review of Systems Review of Systems ROS Unobtainable: All systems reviewed & are unremarkable except as noted in HPI and below Patient History Medical History Acute CVA (cerebrovascular accident) (Acute) AVM (arteriovenous malformation) (Chronic) BPH (benign prostatic hyperplasia) (Acute) Cardiac arrhythmia (Acute) DDD (degenerative disc disease), lumbosacral (Chronic) Facet arthritis, degenerative, L5-S1 level, lumbosacral spine (Chronic) Hydronephrosis, left (Acute) Lumbosacral spondylosis (Chronic) Nephrolithiasis (Acute) Obstructive sleep apnea on CPAP (Acute) Paresthesia of lower extremity (Chronic) Spinal stenosis (Chronic) Status post gamma knife treatment (Chronic) Synovial cyst of popliteal space [Chand], left knee (Chronic) TIA (transient ischemic attack) (Acute) Ureterolithiasis (Acute) Social History household members: spouse Smoking Status: Former smoker Smoking Status: Former smoker alcohol intake frequency: 0-2 drinks per day Substance Use Type: does not use Exam Narrative Exam Narrative: GEN: Obese male, alert and oriented x 3, patient appears to be in mild distress. HEENT: Atraumatic, pupils are equal round reactive to light, extraocular movements are intact, nares are clear, TMs are clear with no fluid, there is no conjunctival pallor. Throat is clear without any exudates, erythema, tonsillar enlargement or uvular deviation, left facial droop that is intermittent during conversation with the patient. HEART: Regular rate and rhythm without murmur, clicks, rubs. Pulses are equal in upper and lower extremities LUNGS:Lungs clear to auscultation, no wheezes, rales, crackles, chest moves symmetrically ABD:bowel sounds normal, soft, non-tender, no guarding, rebound, rigidity, no masses noted, no hepatosplenomegaly :No CVA tenderness. MSCL: Non-tender, no muscle atrophy, muscles strength 5/5 upper and lower extremity on right, 4/5 on left although patient does have intermittent full movement of left hand, gait not tested. NEURO:CN 2-12 intact, sensation normal, reflexes 2/4 upper and lower extrem ities. finger nose finger test normal, heel ann test normal. Initial Vital Signs Initial Vital Signs: Vital Signs Pulse Rate 88 08/11/19 16:35 Respiratory Rate 15 08/11/19 16:35 Blood Pressure 128/77 08/11/19 16:35 Pulse Oximetry 97 08/11/19 16:35 Scores NIH Stroke Scale Level of Conciousness: Alert, keenly responsive Ask month/age: Answers both questions correctly. Open/close eyes, close hand: Performs both tasks correctly Best gaze horizontal: Normal Visual savage: No visual loss Facial palsy: Partial paralysis, total or near total paralysis of lower face (intermittent during evaluation.) Left arm drift: No drift for full 10 sec Right arm drift: No drift for full 10 sec Left leg drift: Drifts down, not to bed Right leg drift: No drift for full 10 sec Limb ataxia: Present in one limb Sensory on face/arms/legs: Mild to moderate sensory loss, can tell touch Best language: No aphasia, normal Dysarthria: Normal Extinction or inattention: No abnormality Total NIH Stroke scale score: 5 Course Orders Ordered: ED Orders 08/11/19 16:32 CT angio head and neck Stat CT head/brain wo con Stat 08/11/19 16:54 EKG-12 Lead Stat 08/11/19 17:02 Basic Metabolic Panel Stat Complete Blood Count AUTO DIFF Stat Partial Thromboplastin Time Stat Prothrombin Time INR Stat Troponin I Stat 08/11/19 18:20 Urine Drug Screen, Rapid Stat 08/11/19 18:52 Urine Microscopic Stat Sodium Chloride (Normal Saline 0.9%) 1,000 mls @ 150 mls/hr IV CONT FAITH Last Infusion: 08/11/19 18:56 Dose: 0 mls/hr Documented by: Admin: 08/11/19 17:08 Dose: 150 mls/hr Documented by: MAISHA Vital Signs Vital signs: Vital Signs - 8 hr 08/11/19 16:35 08/11/19 17:00 08/11/19 17:30 Pulse Rate 88 84 82 Respiratory Rate 15 16 27 H Blood Pressure 128/77 Blood Pressure [Left Arm] 94/72 127/57 L Pulse Oximetry 97 95 08/11/19 18:00 08/11/19 18:30 Pulse Rate 83 79 Respiratory Rate 22 21 Blood Pressure Blood Pressure [Left Arm] 123/62 121/56 L Pulse Oximetry 96 97 MDM - Neuro Symptoms/Deficit Lab Data Result diagrams: 08/11/19 17:02 08/11/19 17:02 Labs: Lab Results 08/11/19 08/11/19 08/11/19 Range/Units 17:02 17:02 17:02 WBC 11.5 H (4.5-11.0) X10^3/uL RBC 5.29 (4.5-5.9) X10^6/uL Hgb 12.2 L (13.5-17.5) g/dL Hct 38.7 L (41-53) % MCV 73.0 L (80-100) fL MCH 23.0 L (26-34) PG MCHC 31.5 (30-36) % RDW 19.3 H (11.6-14.8) % Plt Count 297 (150-400) X10^3/uL Neut % (Auto) 74.5 (50-75) % Lymph % (Auto) 13.8 L (25-40) % [place] % (Auto) 8.5 (3-14) % Eos % (Auto) 2.5 (2-4) % Baso % (Auto) 0.7 (0-2) % Neut # (Auto) 8500 H (0598-2854) /uL Lymph # (Auto) 1600 (2377-8963) /uL [place] # (Auto) 1000 H (0-900) /uL Eos # (Auto) 300 (0-450) /uL Baso # (Auto) 100 (0-100) /uL PT 13.0 H (10.1-12.7) SECONDS INR 1.1 (0.9-1.3) APTT 33 (26.4-36.2) SECONDS Sodium 141 (137-145) mmol/L Potassium 3.6 (3.4-5.1) mmol/L Chloride 101 (98-107) mmol/L Carbon Dioxide 29 (22-32) mmol/L BUN 23 H (9-20) mg/dL Creatinine 0.90 (0.66-1.25) mg/dL Estimated GFR > 60.0 (>60) mL/min BUN/Creatinine Ratio 25.6 H (6-22) Glucose 126 H (80-110) mg/dL Calcium 9.1 (8.4-10.2) mg/dL Troponin I < 0.012 (0.01-0.034) ng/mL U Opiates 300ng/mL cut (Negative) Ur Oxycodone Screen (Negative) Urine Methadone Screen (Negative) Ur Barbiturates Screen (Negative) U Tricyclic Antidepress (Negative) Ur Phencyclidine Scrn (Negative) Ur Amphetamines Screen (Negative) U Methamphetamines Scrn (Negative) Ur MDMA Scrn (Ecstasy) (Negative) U Benzodiazepines Scrn (Negative) Urine Cocaine Screen (Negative) U Marijuana (THC) Screen (Negative) 08/11/19 Range/Units 18:20 WBC (4.5-11.0) X10^3/uL RBC (4.5-5.9) X10^6/uL Hgb (13.5-17.5) g/dL Hct (41-53) % MCV (80-100) fL MCH (26-34) PG MCHC (30-36) % RDW (11.6-14.8) % Plt Count (150-400) X10^3/uL Neut % (Auto) (50-75) % Lymph % (Auto) (25-40) % [place] % (Auto) (3-14) % Eos % (Auto) (2-4) % Baso % (Auto) (0-2) % Neut # (Auto) (2771-8803) /uL Lymph # (Auto) (3645-9640) /uL [place] # (Auto) (0-900) /uL Eos # (Auto) (0-450) /uL Baso # (Auto) (0-100) /uL PT (10.1-12.7) SECONDS INR (0.9-1.3) APTT (26.4-36.2) SECONDS Sodium (137-145) mmol/L Potassium (3.4-5.1) mmol/L Chloride (98-107) mmol/L Carbon Dioxide (22-32) mmol/L BUN (9-20) mg/dL Creatinine (0.66-1.25) mg/dL Estimated GFR (>60) mL/min BUN/Creatinine Ratio (6-22) Glucose (80-110) mg/dL Calcium (8.4-10.2) mg/dL Troponin I (0.01-0.034) ng/mL U Opiates 300ng/mL cut Negative (Negative) Ur Oxycodone Screen Negative (Negative) Urine Methadone Screen Negative (Negative) Ur Barbiturates Screen Negative (Negative) U Tricyclic Antidepress Negative (Negative) Ur Phencyclidine Scrn Negative (Negative) Ur Amphetamines Screen Negative (Negative) U Methamphetamines Scrn Negative (Negative) Ur MDMA Scrn (Ecstasy) Negative (Negative) U Benzodiazepines Scrn Negative (Negative) Urine Cocaine Screen Negative (Negative) U Marijuana (THC) Screen Negative (Negative) Point of Care Testing Glucose POC 111 Urine Dip Bedside Urine Glucose Negative Bedside Urine Bilirubin - Negative Bedside Urine Ketone - Negative Urine Specific Superior 1.010 Bedside Urine Occult Blood - Negative Bedside Urine pH 6.0 Bedside Urine Protein - Negative Bedside Urine Urobilinogen - Negative Bedside Urine Nitrite - Negative Bedside Urine Leukocytes + [address] scan - head: Radiologist's Impression: [address] [address] [address] Scan Report Signed Patient: Joey May CMR#: [id number] : 5Acct:[id number] Age/Sex: 64 / MDate of Service: 08/11/19 Loc: ED Accession Number: [id number] Procedure: CT head/brain wo con Ordering Provider: Shona Wagner D.O. PROCEDURE: CT HEAD/BRAIN WO CON INDICATIONS: left hand weakness, facial droop, dysarthria, 1530 started. TECHNIQUE: Noncontrast 4.5 mm thick angled axial sections acquired from the foramen magnum to the vertex, with coronal and sagittal reformats. For radiation dose reduction, the following was used: automated exposure control, adjustment of mA and/or kV according to patient size. COMPARISON: [facility], CT, CT ANGIO HEAD AND NECK, 12/13/2018, 23:27. [facility], MR, MR HEAD/BRAIN WO CON, 08/26/2018, 14:59. [facility], CT, CT HEAD/BRAIN WO CON, 12/13/2018, 23:21. FINDINGS: Image quality: Excellent. CSF spaces: Basal cisterns are patent. No extra-axial fluid collections. Ventricles are normal in size and shape. Brain: No midline shift. No intracranial masses or hemorrhage. No new or enlarging area of hypodensity. No large area of hypodensity in a vascular distribution to suggest acute infarction. Stable appearance of the hypodensity in the left temporal lobe. Small lacunar infarct in the right frontal lobe. Skull and face: Calvarium and visualized facial bones are intact, without suspicious lesions. Sinuses: Visualized sinuses and mastoids are clear. IMPRESSION: No acute intracranial abnormality demonstrated. Stable hypodensity in the left temporal lobe and small right frontal lacunar infarct. Comment: Findings were discussed with hSona Wagner at the time of dictation. Re ports of prior left temporal gamma knife therapy. Dictated by: Keegan Diaz M.D. on 08/11/2019 at 16:49 Approved by: Keegan Diaz M.D. on 08/11/2019 at 16:55 CTA - brain/neck: Radiologist's Impression: [address] [address] [address] Scan Report Signed Patient: Joey May [facility]#: [id number] : 5Acct:[id number] Age/Sex: 63 / MDate of Service: 12/13/18 Loc: ED Accession Number: [id number] Procedure: CT angio head and neck Ordering Provider: Roberto Bello D.O. PROCEDURE: CT ANGIO HEAD AND NECK INDICATIONS: large stroke suspected TECHNIQUE: Pre-contrast 4.5 mm thick sections acquired from the foramen magnum to the vertex. After the administration of intravenous contrast, 1 mm thick sections acquired from the aortic arch through the [place] of [place]. Post-contrast 4.5 mm thick sections then re- acquired from the foramen magnum to the vertex. 3-dimensional beqkzic-oeokwuopl-nkyvjyvmqi (MIP) and/or volume rendering reformats were acquired of the central intracranial vasculature and neck separately. COMPARISON: [facility], CT, CT ANGIO HEAD AND NECK, 12/09/2018, 15:13. FINDINGS: Image quality: Excellent. BRAIN: CSF spaces: Ventricles are normal in size and shape. Basal cisterns are patent. No extra-axial fluid collections. Brain: No midline shift. No intracranial bleed. Patient's known cystic lesion involving left anterior temporal lobe is unchanged in size and appearance. Mild increased enhancement is again noted in this region unchanged from previous study. Torres- white matter interface appears intact. Skull and face: Calvarium and facial bones appear intact, without suspicious lesions. Orbits appear normal. Sinuses: Sinuses and mastoids are clear. HEAD CT ANGIOGRAPHY: Anterior circulation: Intracranial internal carotid arteries are normal in size and flow. Diminutive right A1 segment is again seen and unchanged from previous study and is considered a congenital process. The flow within the paired anterior cerebral arteries is normal and symmetric. The flow within the middle cerebral arteries is normal and symmetric. The anterior communicating artery is seen. No aneurysms are seen. Posterior circulation: Visualized portions of the vertebral arteries demonstrate normal caliber, and join to form a normal appearing basilar artery. Flow within the posterior cerebral arteries is normal and symmetric. No aneurysms are seen. NECK CT ANGIOGRAPHY: Carotid system: The great vessels demonstrate a conventional anatomy as they arise from the aortic arch. The origins of the common carotid arteries appear patent. The common carotid arteries demonstrate normal caliber and courses. The bifurcation regions are both widely patent. The internal carotid arteries demonstrate normal calibers and courses. Posterior circulation: The origins of the vertebral arteries both appear widely patent. The more superior extracranial portions of both vertebral arteries also demo nstrate normal courses and calibers. They join to form a normal appearing basilar artery. Soft tissues: Visualized neck soft tissues demonstrate no suspicious abnormalities. Bones: No suspicious bony lesions. Visualized cervical spine appears normally aligned. IMPRESSION: 1. No significant changes from 12/09/18 study. Stable left cystic area in left temporal region consistent with prior gamma knife treatment of AVM. 2. No hemodynamically significant stenosis or aneurysm is seen in the intracranial circulation. 3. No hemodynamically significant stenosis are noted in bilateral carotid arteries or vertebral arteries. No discrepancies. Any quantitative measurements of stenosis were performed using NASCET criteria. Dictated by: Trell Cutler M.D. on 12/14/2018 at 8:19 Approved by: Trell Cutler M.D. on 12/14/2018 at 8:25 ECG Data Attestation: I personally reviewed and interpreted this ECG as follows: Prior ECG tracings: available for review Interpretation: Sinus rhythm rate 85 NJ 177 QRS [address] No [address] elevation or depression appreciated. MDM Narrative Medical decision making narrative: Per patient's history he has been told ?that's all in his head. It's unclear if this was meant has a conversion disorder, patient himself states he has had 2 EEGs during episodes which have both been negative. He does have old infarct on his CT today and noted on CT from December 2018. CTA does not show any significant stenosis or aneurysm. And stable change from prior on 12/09/2018. Labs show mildly elevated white count, hemoglobin that appears stable although mildly anemic. Microcytosis. BUN is 23 with otherwise normal electrolytes and renal function and glucose of 126. Troponin is negative. EKG shows no acute findings. Patient had 324mg ASA en route with EMS. Episodes in even in the room symptoms sort of wax and wane with intensity. Discussed with Dr. Best from Neurology and telling him. Patient follows with Dr. Thakur through their group. She was able t o view patient's history. He is suspected to may be having a movement disorder or a dystonia. He has referral this supposed to see a movement specialist at [facility] this Friday on the . Patient states he does have some cyclobenzaprine at home which she has found helpful in the past. Dr. Best would like to defer starting any medications for dystonia she like him to see the movement specialist 1st and since he has been having these symptoms on and off for an extended period of time would likely not hurt for several more days. Patient feels comfortable with this plan. We discussed signs and symptoms to watch for reasons to return. We also discussed the possibility that a stroke or TIA could be missed but with his recurrent and frequent symptoms this is felt to be less likely although he does have changes on CT a that are old. Patient has had several EEGs that have been negative even when his symptoms are present ruling out seizure activity. Discharge Plan Departure Patient Disposition: Home Clinical Impression: Dystonia Discharge Date/Time: 08/11/19 19:07 Instructions: Dystonia Movement Disorders Activity Restrictions/Additional Instructions: Follow up with the movement disorder clinic at your appointment on Friday. Your case was discussed with Dr. Best from neurology in [place]. We did discuss the potential for medications but felt it would be helpful to see the specialist first. Continue your home medications as prescribed. Return to the ER for new or persistent symptoms that are not improving or are changing, severe headaches, new vision changes, new difficulties with speech, difficulty with movement, passing out, chest pain, shortness of breath, persistent vomiting or other new or concerning symptoms. Prescriptions: No Action finasteride 5 MG tablet 5 mg PO DAILY Qty: 0 RF: 0 Blue Emu 1 applic Topical PRN PRN (Reason: muscle pain) RF: 0 omeprazole 20 mg capsule,delayed release(DR/EC) 40 mg PO BID RF: 0 amlodipine 10 mg tablet 10 mg PO DAILY RF: 0 cyclobenzaprine 10 mg Tablet 10 mg PO TID PRN (Reason: Muscle Spasm) Qty: 0 RF: 0 clonidine HCl 0.1 mg Tablet 0.1 mg PO BID Qty: 0 RF: 0 aspirin 325 mg Tablet,Delayed Release (Dr/Ec) 325 mg PO DAILY Qty: 30 RF: 0 atorvastatin 40 mg tablet 40 mg PO QPM RF: 0 atenolol 100 mg tablet 100 mg PO DAILY RF: 0 metformin 500 mg tablet 500 mg PO BID RF: 0 ferrous sulfate 324 mg (65 mg iron) tablet,delayed release (DR/EC) 324 mg PO DAILY RF: 0 clopidogrel [Plavix] 75 mg tablet 75 mg PO DAILY Qty: 45 RF: 0 allopurinol 300 mg tablet 300 mg PO DAILY RF: 0 montelukast 10 mg tablet 10 mg PO QPM RF: 0 hydrochlorothiazide 25 mg tablet 25 mg PO DAILY RF: 0 tamsulosin 0.4 mg capsule 0.4 mg PO DAILY RF: 0 celecoxib [Celebrex] 200 mg capsule 200 mg PO DAILY Qty: 90 RF: 2 Referrals: Low Rush MD [Primary Care Provider] -
[2019-08-11 16:35] VITALS: BP 128/77; PULSE 88; RESP 15; O2SAT 97; BMI 33.7
[2019-08-11 17:00] VITALS: BP 94/72; PULSE 84; RESP 16
[2019-08-11] MEDS: SODIUM CHLORIDE 0.9% 1,000 ML 150 ML IV (17:08)
[2019-08-11 17:09] LABS: Add Manual Diff / Slide Review NO; Basophils Absolute Auto 100 /uL (0-100); Basophils Percent Auto 0.7 % (0-2); Eosinophils Absolute Auto 300 /uL (0-450); Eosinophils Percent Auto 2.5 % (2-4); Hematocrit 38.7 % (41-53); Hemoglobin 12.2 g/dL (13.5-17.5); Lymphocytes Absolute Auto 1600 /uL (1100-4500); Lymphocytes Percent Auto 13.8 % (25-40); Mean Corpuscular HGB Conc 31.5 % (30-36); Monocytes Absolute Auto 1000 /uL (0-900); Monocytes Percent Auto 8.5 % (3-14); Neutrophils Absolute Auto 8500 /uL (1500-7000); Neutrophils Percent Auto 74.5 % (50-75); Platelet Count 297 X10^3/uL (150-400); Red Blood Cell Count 5.29 X10^6/uL (4.5-5.9); Red Cell Distribution Width 19.3 % (11.6-14.8); White Blood Cell Count 11.5 X10^3/uL (4.5-11.0)
[2019-08-11 17:17] LABS: INR 1.1 (0.9-1.3)
[2019-08-11 17:20] LABS: PTT Partial Thromboplastin Tim 33 SECONDS (26.4-36.2)
[2019-08-11 17:21] LABS: BUN Creatinine Ratio 25.6 (6-22); Blood Urea Nitrogen 23 mg/dL (9-20); Calcium 9.1 mg/dL (8.4-10.2); Carbon Dioxide 29 mmol/L (22-32); Chloride 101 mmol/L (98-107); Estimated Glomerular Filt Rate > 60.0 mL/min (>60); Glucose 126 mg/dL (80-110); HEMOLYSIS < 15 (0-50); Potassium 3.6 mmol/L (3.4-5.1); Sodium 141 mmol/L (137-145)
--- NOTE | 2019-08-11 17:25 | PC.NURSE ---
per EMS report pt administered 4 chewable baby aspirin en route
[2019-08-11 17:30] VITALS: BP 127/57; PULSE 82; RESP 27; O2SAT 95
[2019-08-11 17:33] LABS: Troponin I < 0.012 ng/mL (0.01-0.034)
[2019-08-11 18:00] VITALS: BP 123/62; PULSE 83; RESP 22; O2SAT 96
[2019-08-11 18:30] VITALS: BP 121/56; PULSE 79; RESP 21; O2SAT 97
[2019-08-11 18:39] LABS: UR Morphine/Opiate cutoff 300 Negative (Negative); Ur Creatinine 20 (Normal); Ur Specific Gravity 1.015 (Normal); Urine Amphetamines Negative (Negative); Urine Barbiturates Negative (Negative); Urine Benzodiazepines Negative (Negative); Urine Cocaine Negative (Negative); Urine MDMA Negative (Negative); Urine Methadone Negative (Negative); Urine Methamphetamines Negative (Negative); Urine Oxycodone Negative (Negative); Urine Phencyclidine Negative (Negative); Urine Tetrahydrocannabinol Negative (Negative); Urine Tricyclic Antidepressant Negative (Negative); Urine pH 5 (Normal)
--- NOTE | 2019-08-11 18:58 | PC.NURSE ---
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
[2019-08-11 19:12] LABS: Bacteria Urine None Seen; RBC Urine None Seen (0-5/HPF); WBC Urine None Seen (0-5/HPF)
[2019-08-11 19:26] LABS: Culture Indicated Urine Cult Not Indicated
--- NOTE | 2019-08-12 22:52 | PC.NURSE ---
maintenance fluids d/c'd at discharge from department with approx 300cc infused and 700cc wasted
== END 2019-08-11 19:07 | disposition home or self-care (01) ==
PROVIDERS: Emergency Provider Emergency Medicine; PCP Family Medicine
DX: G24.9 Dystonia, unspecified (principal); Q27.30 Arteriovenous malformation, site unspecified; Z86.73 Personal history of transient ischemic attack (TIA), and cerebral infarction without residual deficits
CPT/HCPCS: 36415; 70450; 70496; 70498; 80048; 80305; 81003; 81015; 82962; 84484; 85025; 85610; 85730; 93005; 96360; 99285; Q9967

== ENCOUNTER → 2021-01-11 07:54 | Outpatient (CLI) | payer MEDICARE, OTHER, SELFPAY ==
[2018-11-10 20:00] VITALS: BMI 44.4
--- NOTE | 2021-01-11 | DI.RAD.S_ITS ---
PROCEDURE: FL BARIUM SWALLOW W SPEECH INDICATIONS: Other diseases of vocal cords COMPARISON: None. TECHNIQUE: Examination was conducted in conjunction with speech pathology per standard protocol. In the lateral projection, filming was performed of the patient swallowing. AP projection filming may also be performed with patient swallowing. COMPARISON: None FINDINGS: Examination limited by high-riding shoulders. Function: The oral preparatory phase appears normal, with proper containment. The subsequent oral propulsive phase, pharyngeal phase, and esophageal phase of swallowing also appear normal with all proffered substances. No laryngotracheal penetration or aspiration. No pathologic vallecular pooling. Morphology: No cricopharyngeal bar is identified. No cervical esophageal webs. No Zenker's diverticulum. No strictures. IMPRESSION: Limited negative examination. Dictated by: Wen Geller M.D. on 01/11/2021 at 16:19 Approved by: Wen Geller M.D. on 01/11/2021 at 16:19
--- NOTE | 2021-01-11 09:23 | ST.SWALLOW ---
Visit Care Team Role Provider Type Gino Nair MD Attending Provider Non-Staff Primary Care Provider Referring Provider Specialty: Internal Medicine Address: [address] [place] [address] [address], [place], [address] Email: Modified Barium Swallow Study [employer] Modified Barium Swallow Study Start: 01/11/21 08:44 Freq: Status: Active Protocol: Document 01/11/21 08:44 TLC (Rec: 01/11/21 09:17 TLC [id number]) Modified Barium Swallow Study Total Time Visit Start Time 08:30 Visit Stop Time 08:40 Total Visit Minutes 10 Referral Referring Physician Gino Nair MD Reason for Referral Chronic cough, dyspnea Setting Setting Outpatient Care Patient Information Identification Type Name Patient History Patient has medical history significant for multiple TIAs, CVA, gamma knife treatment for AVM arthritis, cervical stenosis L5-S1 level, Obstructive sleep apnea on CPAP, GERD. He reports globus sensation and increased coughing with meals for approximately one year now. Subjective Observations Patient arrived on time. He was alert and cooperative during the study. Patient Positioning Position View Lat-A/P Imaging Lateral View Textures Administered Trials Presented Thin Liquid via Spoon,Thin Liquid via Cup,[place]aga Liquid via Spoon,[place]aga Liquid via Cup,Honey Liquid via Spoon, Pudding Thick Liquid via Spoon ,Regular Textures Oral Phase Source: MBSIMP (TM) (C) Bolus Specific Scoring Grid Lip Closure No Impairment (WNL) Tongue Control During Bolus Hold No Impairment (WNL) Bolus Prep/Mastication No Impairment (WNL) Bolus Transport/Lingual Motion No Impairment (WNL) Oral Residue Mild Impairment Additional Oral Phase Observations Oral residue collection on tongue with most trials. Patient required two swallows to clear pudding thick and regular textures. Initiation of pharyngeal swallow was mildly delayed occurring when the bolus head was in the valleculae. Pharyngeal Phase Source: MBSIMP (TM) (C) Bolus Specific Scoring Grid Soft Palate Elevation No Impairment (WNL) Tongue Base Strength/Range of Motion Mild Impairment Laryngeal Elevation Mild Impairment Anterior Hyoid Movement Mild Impairment Epiglottic Range of Motion Mild Impairment Laryngeal Vestibular Closure No Impairment (WNL) Additional Pharyngeal Phase Observations Laryngeal elevation, anterior hyoid excursion and epiglottic inversion were all incomplete . Late laryngeal vestibular closure was complete with no penetration or aspiration observed during the study. Trace pharyngeal residue remained on the tongue base and valleculae throughout the study and did not clear with additional swallows. A/P View Textures Administered Trials Presented Onaga Liquid via Spoon, Pudding Thick Liquid via Spoon A/P View Observations Pharyngeal Contraction No Impairment (WNL) Esophageal Clearance Upright Position No Impairment (WNL) Clinical Impressions Dysphagia Type Pharyngeal Findings Mild pharyngeal dysphagia characterized by incomplete laryngeal elevation, anterior hyoid excursion and epiglottic movement. Patient may benefit from outpatient speech therapy for strengthening exercises to include: effortful swallow, payton maneuver, shaker/CTAR as well as further education regarding compensatory strategies (slow rate, small bites/sips, multiple swallows). Rehabilitation Potential Good Patient Appropriate for Therapy Yes Recommendations Diet Liquids Order Thin Diet Order Regular Medication Recommendation As Tolerated Aspiration Precautions Recommended Precautions Upright at 90 Degrees, Alternate Liquids/Solids,Small Bites/Sips Treatment Plan Therapy Recommendations Outpatient Speech Therapy Compensatory Strategies Recommendations Double Swallow,Small Bites and Sips
== END ==
PROVIDERS: PCP Internal Medicine; Referring Provider Internal Medicine; Visit Provider Internal Medicine
DX: J38.3 Other diseases of vocal cords (principal)
CPT/HCPCS: 74230; 92611

== ENCOUNTER 2021-01-30 12:10 | Outpatient (RCR) | payer MEDICARE, OTHER, SELFPAY ==
[2018-11-10 20:00] VITALS: BMI 44.4
--- NOTE | 2021-01-30 14:45 | ST.IPDYTX ---
Visit Care Team Role Provider Type Gino Nair MD Attending Provider Non-Staff Primary Care Provider Referring Provider Specialty: Internal Medicine Address: [facility] [address], [place], [address] Email: MEDICAL SALES REPRESENTATIVE Dysphagia Treatment MEDICAL SALES REPRESENTATIVE Dysphagia Treatment Start: 01/30/21 14:36 Freq: Status: Active Protocol: Document 01/30/21 14:41 TLC (Rec: 01/30/21 14:45 TLC [id number]) Dysphagia Treatment Session Time Visit Start Time 12:30 Visit Stop Time 13:00 Total Visit Minutes 30 Visit Information Visit Number 1 Plan of Care Dates 01/30/21-05/02/21 Setting Assessment Location Outpatient Care Visit Type Note Type Treatment Note Next Note Type Next Note Type Treatment Note Patient Information Identification Type Name Subjective Observations Patient arrived on time. No change in symptoms since I last saw him for the MBS. Patient has an appointment with it security administrator 03/01/21. Treatment Treatment Activities Reviewed tape of MBS and discussed findings. Provided written and verbal education on swallowing exercises: Effortful swallow, Shaker/CTAR and Raya manuever as well as compensatory strategies: slow rate, small bites/sips, multiple swallows. Assessment Patient Response to Treatment Good Rehab Potential Good Diet Recommendations Recommendations Continue Current Diet Medication Recommendations As Tolerated Aspiration Precautions Recommended Precautions Small Bites/Sips,Double Swallow Treatment Plan Appropriate for Continued Therapy Yes Therapy Recommendations Follow up in one month after it security administrator appointment. Dysphagia Goals Joey will report decrease in symptoms (globus, coughing) during meals. Joey will be independent in completing HEP as reported by patient.
--- NOTE | 2021-01-30 14:47 | ST.OPPOC ---
Physical, Occupational & Speech Therapy At [facility] Visit Care Team Role Provider Type Gino Nair MD Attending Provider Non-Staff Primary Care Provider Referring Provider Address: [facility] [address], [place], [address] Speech Pathology Plan of Care Dysphagia Treatment Session Time Visit Start Time 12:30 Visit Stop Time 13:00 Total Visit Minutes 30 Visit Information Visit Number 1 Plan of Care Dates 01/30/21-05/02/21 Setting Assessment Location Outpatient Care Visit Type Note Type Treatment Note Next Note Type Next Note Type Treatment Note Patient Information Patient History Patient has medical history significant for multiple TIAs, CVA, gamma knife treatment for AVM arthritis, cervical stenosis L5-S1 level, Obstructive sleep apnea on CPAP, GERD. He reports globus sensation and increased coughing with meals for approximately one year now. Identification Type Name Subjective Observations Patient arrived on time. No change in symptoms since I last saw him for the MBS. Patient has an appointment with unit educator 03/01/21. Treatment Treatment Activities Reviewed tape of MBS and discussed findings. Provided written and verbal education on swallowing exercises: Effortful swallow, Shaker/CTAR and Raya manuever as well as compensatory strategies: slow rate, small bites/sips, multiple swallows. Assessment Patient Response to Treatment Good Rehab Potential Good Diet Recommendations Recommendations Continue Current Diet Medication Recommendations As Tolerated Aspiration Precautions Recommended Precautions Small Bites/Sips,Double Swallow Treatment Plan Appropriate for Continued Therapy Yes Therapy Recommendations Follow up in one month after unit educator appointment. Dysphagia Goals Joey will report decrease in symptoms (globus, coughing) during meals. Joey will be independent in completing HEP as reported by patient. Electronically Signed by: MOHIT Hardy 01/30/21 0757 Please Sign and Return: I have reviewed this Plan of Care and certify that the skilled therapy services above are required to meet the patient?s needs. Physician Signature Date Printed Name and Credentials Clinical Instructor Signature Printed Name and Credentials
--- NOTE | 2021-03-13 15:08 | ST.IPDYTX ---
Visit Care Team Role Provider Type Gino Nair MD Attending Provider Non-Staff Primary Care Provider Referring Provider Specialty: Internal Medicine Address: [address] [place], [place] [address], [place], [address] Email: [facility] Dysphagia Treatment [facility] Dysph[facility]ia Treatment Start: 01/30/21 14:36 Freq: Status: Active Protocol: Document 03/13/21 14:20 LNK (Rec: 03/13/21 15:07 LNK [id number]) Dysphagia Treatment Visit Type Note Type Discharge Summary Assessment Patient Response to Treatment Good Rehab Potential Good Assessment of Improvement Pt was not seen for therapy follow up sessions after January 30, 2021. Will discharge pt from active files
== END 2021-03-15 07:57 | disposition home or self-care (01) ==
LOC: SP 12:10
PROVIDERS: PCP Internal Medicine; Referring Provider Internal Medicine; Visit Provider Internal Medicine
DX: R13.13 Dysphagia, pharyngeal phase (principal)
CPT/HCPCS: 92507

== ENCOUNTER → 2021-07-31 11:42 | Outpatient (CLI) | payer MEDICARE, OTHER, SELFPAY ==
[2018-11-10 20:00] VITALS: BMI 44.4
--- NOTE | 2021-07-31 11:44 | DI.CT.S_ITS ---
PROCEDURE: CT SINUS SCREEN WO CON INDICATIONS: POOLING OF SECRETIONS TECHNIQUE: Noncontrast 3.0 mm axial images acquired from the frontal sinuses to the mid-sella, with coronal and sagittal reformats. For radiation dose reduction, the following was used: automated exposure control, adjustment of mA and/or kV according to patient size. COMPARISON: None. FINDINGS: Image quality: Excellent. Maxillary Sinuses: No bony remodeling or destruction. Small mucous retention cyst in the anterior right maxillary sinus. Maxillary sinuses are otherwise clear. Ethmoid Air Cells: No bony remodeling or destruction. Sinuses are clear. Sphenoid Sinuses: No bony remodeling or destruction. Opacification of a few adjacent anterior right ethmoid air cells. Ethmoid air cells otherwise clear Frontal Sinuses: No bony remodeling or destruction. Sinuses are clear. Ostiomeatal Complexes: Ostiomeatal complexes are patent. No Nini cells. Miscellaneous: Visualized intra-orbital contents are normal. No ronan bullosa or paradoxical turbinate curvature. Mild leftward nasal septal deviation with spurring at the level of the inferior nasal turbinates. IMPRESSION: Small mucous retention cyst in the anterior right maxillary sinus. Opacification of a few adjacent anterior right ethmoid air cells. No findings of acute or chronic sinusitis. Mild leftward nasal septal deviation and spurring. Dictated by: Iban Quinonez M.D. on 07/31/2021 at 12:06 Approved by: Iban Quinonez M.D. on 07/31/2021 at 12:10
== END ==
PROVIDERS: PCP Internal Medicine; Referring Provider Otolaryngology; Visit Provider Otolaryngology
DX: J34.1 Cyst and mucocele of nose and nasal sinus (principal); J34.2 Deviated nasal septum; R51.9 Headache, unspecified; R06.00 Dyspnea, unspecified; R06.89 Other abnormalities of breathing
CPT/HCPCS: 70486

== ENCOUNTER → 2021-09-07 16:06 | Outpatient (CLI) | payer MEDICARE, OTHER, SELFPAY ==
[2018-11-10 20:00] VITALS: BMI 44.4
--- NOTE | 2021-09-07 16:11 | DI.MRI.S_ITS ---
PROCEDURE: MR LUMBAR SPINE WO CON INDICATIONS: CANAL STENOSIS WITH CLAUDICATION SYMPTOMS TECHNIQUE: Noncontrast sagittal T1 spin echo and T2 fast echo, sagittal STIR, axial T1 and T2 fast spin echo through the lumbar spine. In cases with scoliosis, additional coronal T2 fast spin echo may be performed. COMPARISON: [facility], , MRI L-SPINE W/O CONTRAST, 06/01/2018, 13:48. FINDINGS: Image quality: Excellent. Alignment and Curvature: There is normal bony alignment. Bone Marrow: Marrow is of normal overall signal. Scattered foci are seen, which are hyperintense on T1-weighted and T2-weighted imaging, which are most consistent with benign vertebral body hemangiomas. No acute vertebral body compression fractures. Spinal Cord: Conus medullaris terminates at the T12-L1 level. Visualized cord demonstrates normal signal and size. Paraspinous Soft Tissues: No paravertebral masses. Incidental note is made of a circumaortic left renal vein. T12-L1: Moderate loss of disc height is seen. Loss of disc signal is seen. Bridging endplate osteophytes are seen. Mild bilateral neural foraminal narrowing is seen. Minimal central canal narrowing is seen. When comparison is made with the prior images, these findings are similar. L1-L2: Normal appearance. L2-L3: The disc height is well-preserved. Loss of disc signal is seen at this level. Moderate disc bulge is seen, which is eccentric to the right. There is a right foraminal disc protrusion seen. A faintly seen annular fissure is present on the right posteriorly, as on series 6, image 18. Moderate facet joint hypertrophy is seen. Moderate bilateral neural foraminal narrowing is seen. Moderate central canal narrowing is seen. When comparison is made with the prior images, these findings are similar. L3-L4: The disc height is well-preserved. Loss of disc signal is seen at this level. Mild generalized disc bulge is seen. Moderate facet joint hypertrophy is seen. Mild bilateral neural foraminal narrowing is seen. No significant central canal narrowing is seen. These imaging findings are similar to the prior outside images. L4-L5: The disc height and disc signal are relatively well preserved. Mild disc bulge is seen, which is eccentric to the right. Moderate to prominent facet hypertrophy can be seen. There is moderate right-sided and mild left-sided neural foraminal narrowing. Mild central canal narrowing is seen. When comparison is made with the prior images, these findings are similar. L5-S1: The disc height is well-preserved. Loss of disc signal is seen at this level. Mild generalized disc bulge is seen. Moderate facet joint hypertrophy is seen. Moderate bilateral neural foraminal narrowing can be seen, right worse than left. No significant central canal narrowing can be seen. No significant change from the prior. IMPRESSION: Multiple levels of lumbar spine degenerative change are seen, which are similar to the outside 2018 examination. Dictated by: John Art M.D. on 09/07/2021 at 16:26 Approved by: John Art M.D. on 09/07/2021 at 16:30
== END ==
PROVIDERS: PCP Internal Medicine; Referring Provider Internal Medicine; Visit Provider Internal Medicine
DX: M48.062 Spinal stenosis, lumbar region with neurogenic claudication (principal); M47.816 Spondylosis without myelopathy or radiculopathy, lumbar region
CPT/HCPCS: 72148

== ENCOUNTER → 2021-10-12 09:24 | Outpatient (CLI) | payer MEDICARE, OTHER, SELFPAY ==
[2018-11-10 20:00] VITALS: BMI 44.4
[2021-10-12 11:19] LABS: COVID-19 CEPHEID PCR (VTM/NP) Negative (Negative)
== END ==
PROVIDERS: PCP Internal Medicine; Visit Provider Family Medicine Sleep Medicine
DX: Z20.822 Contact with and (suspected) exposure to COVID-19 (principal)
CPT/HCPCS: C9803; U0003; U0005

== ENCOUNTER → 2022-01-23 11:43 | Outpatient (CLI) | payer MEDICARE, OTHER, SELFPAY ==
[2018-11-10 20:00] VITALS: BMI 44.4
--- NOTE | 2022-01-23 11:46 | DI.CT.S_ITS ---
PROCEDURE: CT IVP A/P W/WO INDICATIONS: Gross hematuria TECHNIQUE: Optional 5 mm thick noncontrast images acquired from the diaphragm to the symphysis pubis. After the administration of intravenous contrast, 5 mm thick images acquired from the diaphragm to the symphysis pubis after a 10-minute delay. 2 mm thick coronal and sagittal reformats were then performed of the kidneys and ureters. For radiation dose reduction, the following was used: automated exposure control, adjustment of mA and/or kV according to patient size. COMPARISON: [facility], CT, KIDNEY/ URETER/BLADDER, 07/31/2015, 21:44. FINDINGS: Image quality: Excellent. Lung bases: Lung bases are clear. Heart size is normal. Urinary system: A 6 mm calculus is seen in the interpolar region of the right kidney (620 Hounsfield units). A 5 mm calculus is seen at the right inferior pole (approximately 500 Hounsfield units. Additional smaller 3 mm calculus is seen at the right inferior pole. A few small left renal calculi are seen measuring up to 3 mm in size. Both kidneys are normal in size, without hydronephrosis. No perinephric fat stranding. There is normal bilateral renal enhancement. Renal calyces appear normal in morphology when filled with contrast. Opacified portions of both ureters demonstrate normal caliber. Bladder wall thickness is normal. No calcified bladder stones. Other solid organs: Liver is normal in size and enhancement. Gallbladder is absent. Biliary system is non dilated. Pancreas enhances normally. Spleen is normal in size and enhancement. No adrenal nodules. Peritoneum and bowel: Scattered diverticula are seen in the colon without signs of acute diverticulitis. Small bowel loops are unremarkable. No free fluid or air. A few omental calcifications are seen that may be related to fat necrosis. Nodes and vessels: No retroperitoneal or mesenteric adenopathy by size criteria. Aorta and inferior vena cava are normal in size. Abdominal wall: No ventral hernias. Pelvis: No pathologic free pelvic fluid. No inguinal hernias or adenopathy. Coarse calcifications are seen in the prostate. Bones: No suspicious bony lesions. No vertebral body compression fractures. Degenerative changes are seen in the spine with flowing osteophytes noted at the lower thoracic spine. IMPRESSION: 1. Bilateral nonobstructing renal calculi. No hydronephrosis. No suspicious urothelial mass. 2. Colonic diverticulosis. Dictated by: Lonnie Mario M.D. on 01/24/2022 at 9:38 Approved by: Lonnie Mario M.D. on 01/24/2022 at 9:51
[2022-01-23 12:20] LABS: BUN Creatinine Ratio 18.6 (6-22); Blood Urea Nitrogen 16 mg/dL (9-20); Calcium 9.1 mg/dL (8.4-10.2); Carbon Dioxide 31 mmol/L (22-32); Chloride 100 mmol/L (98-107); Estimated Glomerular Filt Rate > 60 mL/min (>60); Glucose 183 mg/dL (80-110); HEMOLYSIS < 15 (0-50); Potassium 3.3 mmol/L (3.4-5.1); Sodium 139 mmol/L (137-145)
== END ==
PROVIDERS: PCP Internal Medicine; Referring Provider Physician Assistant Medical; Visit Provider Physician Assistant Medical
DX: N20.0 Calculus of kidney (principal); R31.0 Gross hematuria; K57.90 Diverticulosis of intestine, part unspecified, without perforation or abscess without bleeding
CPT/HCPCS: 36415; 74178; 80048; Q9967

== ENCOUNTER → 2022-02-20 12:47 | Outpatient (CLI) | payer MEDICARE, OTHER, SELFPAY ==
[2018-11-10 20:00] VITALS: BMI 44.4
== END ==
PROVIDERS: PCP Internal Medicine; Visit Provider Specialist
DX: R30.0 Dysuria (principal); N40.0 Benign prostatic hyperplasia without lower urinary tract symptoms; N20.0 Calculus of kidney; R31.0 Gross hematuria; Z87.442 Personal history of urinary calculi
CPT/HCPCS: 81002; 87086; 99215

== ENCOUNTER → 2022-03-15 14:26 | Outpatient (CLI) | payer MEDICARE, OTHER, SELFPAY ==
[2018-11-10 20:00] VITALS: BMI 44.4
[2022-03-15 16:06] LABS: Prostate Specific Antigen 1.41 ng/mL (0.10-4.00)
== END ==
PROVIDERS: PCP Internal Medicine; Referring Provider Specialist; Visit Provider Specialist
DX: N40.0 Benign prostatic hyperplasia without lower urinary tract symptoms (principal)
CPT/HCPCS: 36415; 84153

== ENCOUNTER → 2022-03-21 12:59 | Outpatient (CLI) | payer MEDICARE, OTHER, SELFPAY ==
[2018-11-10 20:00] VITALS: BMI 44.4
== END ==
PROVIDERS: PCP Internal Medicine; Visit Provider Specialist
DX: N40.1 Benign prostatic hyperplasia with lower urinary tract symptoms (principal); N13.8 Other obstructive and reflux uropathy; N20.0 Calculus of kidney; R31.0 Gross hematuria; R30.0 Dysuria
CPT/HCPCS: 52000; 81002; 87086; 99214

== ENCOUNTER → 2022-06-11 16:28 | Outpatient (CLI) | payer MEDICARE, OTHER, SELFPAY ==
[2018-11-10 20:00] VITALS: BMI 44.4
--- NOTE | 2022-06-11 16:30 | DI.RAD.S_ITS ---
PROCEDURE: XR KUB INDICATIONS: kidney stones TECHNIQUE: One view of the abdomen acquired. COMPARISON: [facility], CT, CT IVP A/P W/WO, 01/23/2022, 12:39. FINDINGS: Surgical changes and devices: None. Bowel: Bowel gas pattern is nonobstructive. Soft tissues: 8 mm calcification projects over the right mid kidney. At the right inferior kidney, there are 2 possible 10 mm calcifications versus artifact. No definite left renal stones identified radiographically. Bones: Degenerative changes of the imaged spine. IMPRESSION: Calcification(s) project over the right kidney. No definite left renal stones identified radiographically. Dictated by: Lonnie Rios M.D. on 06/12/2022 at 8:40 Approved by: Lonnie Rios M.D. on 06/12/2022 at 8:45
== END ==
PROVIDERS: PCP Internal Medicine; Referring Provider Specialist; Visit Provider Specialist
DX: N20.0 Calculus of kidney (principal)
CPT/HCPCS: 74018

== ENCOUNTER → 2022-09-11 13:08 | Outpatient (CLI) | payer OTHER, SELFPAY ==
[2018-11-10 20:00] VITALS: BMI 44.4
--- NOTE | 2022-09-11 13:10 | DI.RAD.S_ITS ---
PROCEDURE: XR KUB INDICATIONS: Kidney Stones TECHNIQUE: One view of the abdomen acquired. COMPARISON: [facility], CR, XR KUB, 06/11/2022, 16:42. FINDINGS: Surgical changes and devices: None. Bowel: Bowel gas pattern is normal. Soft tissues: Organ shadows are within normal limits. There are two calcifications projecting over the region of the right kidney, one measuring about 8 mm in the other measuring about 7 mm. Bones: No suspicious bony lesions. IMPRESSION: 1. Probably stable right intrarenal calcifications. Dictated by: Kristi Mccullough M.D. on 09/11/2022 at 17:53 Approved by: Kristi Mccullough M.D. on 09/11/2022 at 17:54
== END ==
PROVIDERS: PCP Internal Medicine; Referring Provider Specialist; Visit Provider Specialist
DX: N20.2 Calculus of kidney with calculus of ureter (principal)
CPT/HCPCS: 74018

== ENCOUNTER → 2022-10-02 12:33 | Outpatient (CLI) | payer OTHER, SELFPAY ==
[2018-11-10 20:00] VITALS: BMI 44.4
--- NOTE | 2022-10-02 12:35 | DI.RAD.S_ITS ---
PROCEDURE: XR LUMBAR SPINE MIN 4V INDICATIONS: BACK PAIN TECHNIQUE: 5 views of the lumbar spine were acquired, including bilateral oblique views. COMPARISON: [facility], , XR LUMBAR SPINE MIN 4V, 05/15/2018, 10:15. FINDINGS: Bones: 5 nonrib-bearing vertebrae are present. There is normal bony alignment. No vertebral body compression fractures. No suspicious bony lesions. Mild disc degeneration L4-5 and L5-S1. Mild lower lumbar facet arthropathy. Soft tissues: Overlying bowel gas pattern is normal. No suspicious soft tissue calcifications. Oblique images: No pars defects. IMPRESSION: Mild lower lumbar degeneration, similar compared to the prior study. Dictated by: Kristi Mccullough M.D. on 10/02/2022 at 14:04 Approved by: Kristi Mccullough M.D. on 10/02/2022 at 14:08
== END ==
PROVIDERS: PCP Internal Medicine; Referring Provider Physical Medicine & Rehabilitation; Visit Provider Physical Medicine & Rehabilitation
DX: M47.817 Spondylosis without myelopathy or radiculopathy, lumbosacral region (principal); M51.36 Other intervertebral disc degeneration, lumbar region; M51.37 Other intervertebral disc degeneration, lumbosacral region; M48.062 Spinal stenosis, lumbar region with neurogenic claudication; Q27.30 Arteriovenous malformation, site unspecified
CPT/HCPCS: 72110; 99215

== ENCOUNTER → 2023-09-03 14:49 | Outpatient (CLI) | payer OTHER, SELFPAY ==
[2018-11-10 20:00] VITALS: BMI 44.4
== END ==
PROVIDERS: PCP Internal Medicine; Visit Provider Specialist
DX: N40.1 Benign prostatic hyperplasia with lower urinary tract symptoms (principal); N13.8 Other obstructive and reflux uropathy; R31.0 Gross hematuria; N20.0 Calculus of kidney
CPT/HCPCS: 51798; 81002; 87086; 99214

== ENCOUNTER 2023-12-01 13:17 | Emergency (ER) | payer MEDICARE, OTHER, SELFPAY ==
[2018-11-10 20:00] VITALS: BMI 44.4
[2023-12-01 13:46] VITALS: BP 164/78; PULSE 78; RESP 16; TEMP 36.5; O2SAT 98; BMI 43.4
[2023-12-01 15:59] LABS: Add Manual Diff / Slide Review NO; Basophils Absolute Auto 100 /uL (0-100); Basophils Percent Auto 0.8 % (0-2); Eosinophils Absolute Auto 500 /uL (0-450); Eosinophils Percent Auto 3.9 % (2-4); Hematocrit 43.6 % (41-53); Hemoglobin 13.7 g/dL (13.5-17.5); Lymphocytes Absolute Auto 1700 /uL (1100-4500); Lymphocytes Percent Auto 13.5 % (25-40); Mean Corpuscular HGB Conc 31.5 % (30-36); Mean Corpuscular Hemoglobin 24.1 PG (26-34); Mean Corpuscular Volume 76.6 fL (80-100); Monocytes Absolute Auto 1500 /uL (0-900); Monocytes Percent Auto 11.7 % (3-14); Neutrophils Absolute Auto 8700 /uL (1500-7000); Neutrophils Percent Auto 70.1 % (50-75); Platelet Count 338 X10^3/uL (150-400); Red Blood Cell Count 5.69 X10^6/uL (4.5-5.9); Red Cell Distribution Width 18.3 % (11.6-14.8); White Blood Cell Count 12.4 X10^3/uL (4.5-11.0)
[2023-12-01 16:06] LABS: INR 1.1 (0.9-1.3); Prothrombin Time 12.7 SECONDS (9.4-12.5)
[2023-12-01 16:09] LABS: PTT Partial Thromboplastin Tim 35 SECONDS (25.1-36.5)
[2023-12-01 16:13] LABS: Alanine Aminotransferase 54 IU/L (<50); Albumin 4.8 g/dL (3.5-5.0); Albumin Globulin Ratio 1.3 (1.0-2.8); Alkaline Phosphatase 95 U/L (38-126); Aspartate Aminotransferase 45 IU/L (17-59); BUN Creatinine Ratio 21.8 (6-22); Bilirubin Total 0.6 mg/dL (0.2-1.3); Blood Urea Nitrogen 17 mg/dL (9-20); Calcium 9.4 mg/dL (8.4-10.2); Carbon Dioxide 27 mmol/L (22-32); Chloride 107 mmol/L (98-107); Estimated Glomerular Filt Rate > 60 mL/min (>60); Globulin 3.7 g/dL (1.7-4.1); Glucose 127 mg/dL (80-110); HEMOLYSIS 46 (0-50); Potassium 4.6 mmol/L (3.4-5.1); Sodium 141 mmol/L (137-145); Total Protein 8.5 g/dL (6.3-8.2)
--- NOTE | 2023-12-01 19:06 | ED.GIBLEED ---
HPI - GI Bleed General Chief complaint: GI Bleed Stated complaint: sent by PCP, black tarry stools Time Seen by Provider: 12/01/23 18:50 Source: patient Mode of arrival: Ambulatory History of Present Illness HPI Narrative: 68-year-old male presents by private vehicle from home for 10 days of intermittent black tarry stools. Patient reports chronic abdominal pain in his currently in the process of trying to get an EGD and colonoscopy with his GI doctor, however he states that this is being delayed because he needs cardiac clearance prior to his procedure. Patient has been taking Pepto-Bismol for his abdominal pain, he started taking Pepto-Bismol around the time that his dark stool started. He tried to call his primary doctor for a follow up appointment, however they referred him to the emergency department for evaluation. Takes daily Plavix but denies use of other blood thinners, denies NSAID use, denies alcohol use. Related Data Home Medications Medication Instructions Recorded Confirmed finasteride 5 mg tablet 5 mg PO DAILY ##0 12/16/12 10/30/22 allopurinol 300 mg tablet 300 mg PO DAILY 05/15/18 10/30/22 hydrochlorothiazide 25 mg tablet 25 mg PO DAILY 05/15/18 10/30/22 montelukast 10 mg tablet 10 mg PO QPM 05/15/18 10/30/22 tamsulosin 0.4 mg capsule 0.4 mg PO DAILY 05/15/18 10/30/22 Blue Emu 1 applic topical PRN PRN muscle 08/26/18 10/30/22 pain pantoprazole 40 mg tablet,delayed 40 mg PO DAILY 02/20/22 10/30/22 release (Protonix) amlodipine 10 mg tablet 10 mg PO DAILY 10/02/22 10/30/22 atorvastatin 20 mg tablet 20 mg PO BEDTIME 10/02/22 10/30/22 dulaglutide 1.5 mg/0.5 mL 1.5 mg SUBCUT QWEEK 10/02/22 10/30/22 subcutaneous pen injector (Trulicity) metformin 500 mg tablet,extended 500 mg PO DAILY 10/02/22 10/30/22 release 24 hr phentermine 30 mg capsule 30 mg PO DAILY 10/02/22 10/30/22 potassium chloride 20 mEq tab PO 02/22/23 03/22/23 tablet,extended release(part/cryst) spironolactone 25 mg tablet 25 mg PO DAILY 10/02/22 10/30/22 torsemide 20 mg tablet 20 mg PO DAILY 10/02/22 10/30/22 Previous Rx's Medication Instructions Recorded clopidogrel 75 mg tablet (Plavix) 75 mg PO DAILY #45 tabs 12/09/18 gabapentin 300 mg capsule 300 mg PO .COMPLEX #90 caps 10/02/22 celecoxib 200 mg capsule (Celebrex) 200 mg PO DAILY pain #90 caps 01/08/23 Allergies Allergy/AdvReac Type Severity Reaction Status Date / Time losartan Allergy Severe Anaphylaxis Verified 12/01/23 13:52 carbamazepine [CARBAMAZEPINE] Allergy Mild Verified 12/01/23 13:52 lamotrigine [LAMOTRIGINE] Allergy Mild Verified 12/01/23 13:52 Review of Systems Review of Systems Narrative: See HPI Patient History Medical History SOB (shortness of breath) Right nephrolithiasis BPH w urinary obs/LUTS Gross hematuria Bilateral nephrolithiasis Male circumcision Cholecystectomy planned Cardiac arrhythmia Obstructive sleep apnea on CPAP BPH (benign prostatic hyperplasia) TIA (transient ischemic attack) Acute CVA (cerebrovascular accident) Status post gamma knife treatment AVM (arteriovenous malformation) DDD (degenerative disc disease), lumbosacral Facet arthritis, degenerative, L5-S1 level, lumbosacral spine Lumbosacral spondylosis Synovial cyst of popliteal space [Chand], left knee Spinal stenosis Paresthesia of lower extremity Ureterolithiasis Hydronephrosis, left Nephrolithiasis Surgical History History of hernia repair Family History Father Stroke Hypertension Mother Stroke Diabetes mellitus Hypertension Brother Diabetes mellitus Hypertension Daughter Kidney stones Social History marital status: number of children: 1 household members: spouse Smoking Status: Former smoker Smoking Status: Former smoker alcohol intake frequency: 0-2 drinks per day Substance Use Type: does not use Exam Initial Vital Signs Initial Vital Signs: Vital Signs Temperature 97.7 F 12/01/23 13:46 Pulse Rate 78 12/01/23 13:46 Respiratory Rate 16 12/01/23 13:46 Blood Pressure 164/78 H 12/01/23 13:46 Pulse Oximetry 98 12/01/23 13:46 Oxygen Delivery Method Room Air 12/01/23 13:46 Const: Awake, alert, no acute distress, nontoxic appearing Cardiac: regular rate, regular rhythm RESP: unlabored, clear bilaterally, no wheezing GI: Soft, nontender, nondistended, no rebound, no guarding MSK: Atraumatic, full range of motion, pulses equal Skin: Warm, Dry, intact, no rashes Neuro: AO x3, CN II-XII grossly intact, moves all extremities Course Orders Ordered: Discontinued Medications Ondansetron HCl (Ondansetron 4 Mg/2 Ml Inj) 4 mg IV NOW PRN PRN Reason: Nausea And Vomiting Ondansetron HCl (Ondansetron 4 Mg Odt) 4 mg SL NOW PRN PRN Reason: Nausea And Vomiting Pantoprazole Sodium (Pantoprazole 40 Mg Vial) 80 mg IV NOW ONE Stop: 12/01/23 14:38 Last Admin: 12/01/23 19:24 Dose: 80 mg Documented By: KATHERIN Vital Signs Vital signs: Vital Signs - 8 hr 12/01/23 13:46 Temperature 97.7 F Pulse Rate 78 Respiratory Rate 16 Blood Pressure 164/78 H Pulse Oximetry 98 Oxygen Delivery Method Room Air MDM - GI Bleed Differential Diagnosis Differential diagnosis: Likely hemorrhoids, infectious diarrhea and esophageal varices Lab Data 12/01/23 15:45 12/01/23 15:45 Labs: Lab Results 12/01/23 Range/Units 15:45 WBC 12.4 H (4.5-11.0) X10^3/uL RBC 5.69 (4.5-5.9) X10^6/uL Hgb 13.7 (13.5-17.5) g/dL Hct 43.6 (41-53) % MCV 76.6 L (80-100) fL MCH 24.1 L (26-34) PG MCHC 31.5 (30-36) % RDW 18.3 H (11.6-14.8) % Plt Count 338 (150-400) X10^3/uL Neut % (Auto) 70.1 (50-75) % Lymph % (Auto) 13.5 L (25-40) % [place] % (Auto) 11.7 (3-14) % Eos % (Auto) 3.9 (2-4) % Baso % (Auto) 0.8 (0-2) % Neut # (Auto) 8700 H (6052-0693) /uL Lymph # (Auto) 1700 (2958-4449) /uL [place] # (Auto) 1500 H (0-900) /uL Eos # (Auto) 500 H (0-450) /uL Baso # (Auto) 100 (0-100) /uL PT 12.7 H (9.4-12.5) SECONDS INR 1.1 (0.9-1.3) APTT 35 (25.1-36.5) SECONDS Sodium 141 (137-145) mmol/L Potassium 4.6 (3.4-5.1) mmol/L Chloride 107 (98-107) mmol/L Carbon Dioxide 27 (22-32) mmol/L BUN 17 (9-20) mg/dL Creatinine 0.78 (0.66-1.25) mg/dL Estimated GFR > 60 (>60) mL/min BUN/Creatinine Ratio 21.8 (6-22) Glucose 127 H (80-110) mg/dL Calcium 9.4 (8.4-10.2) mg/dL Total Bilirubin 0.6 (0.2-1.3) mg/dL AST 45 (17-59) IU/L ALT 54 H (<50) IU/L Alkaline Phosphatase 95 (38-126) U/L Total Protein 8.5 H (6.3-8.2) g/dL Albumin 4.8 (3.5-5.0) g/dL Globulin 3.7 (1.7-4.1) g/dL Albumin/Globulin Ratio 1.3 (1.0-2.8) Blood Type O Positive Antibody Screen Negative [facility] Narrative Medical decision making narrative: Patient with dark tarry stools that began around the time he started taking Pepto-Bismol. Currently is on Pepcid and pantoprazole. Abdomen is soft, no tenderness to light or deep palpation in any quadrant. Laboratory work reviewed, WBC count 12.4, hemoglobin 13.7, platelets 338, sodium 141, potassium 4.6, creatinine 0.78, BUN 17, liver enzymes within normal limits. If patient's dark stools were related to upper GI bleed I would anticipate that his hemoglobin would have been impacted, however it was within normal limits and approximately at his baseline. Patient was advised of all lab findings, he was reassured that his hemoglobin is normal. I recommended patient continue to take the antacids that he has been prescribed and to continue to follow up with his GI doctor in order to get his scopes. ED return precautions discussed at bedside with the patient and his significant other Discharge Plan Departure Patient Disposition: Home Clinical Impression: Dark stools Instructions: DI for Peptic Ulcer Activity Restrictions/Additional Instructions: Your blood work today was reassuring, your hemoglobin is 13.7, which is normal limits. Follow up with your GI doctor and your specialists for your scopes. You can take a daily antacid such as Pepcid or omeprazole for stomach discomfort. Prescriptions: No Action finasteride 5 MG tablet 5 mg PO DAILY Qty: 0 celecoxib [Celebrex] 200 mg capsule 200 mg PO DAILY Qty: 90 2RF Blue Emu 1 applic Topical PRN PRN (Reason: muscle pain) clopidogrel [Plavix] 75 mg tablet 75 mg PO DAILY Qty: 45 0RF allopurinol 300 mg tablet 300 mg PO DAILY montelukast 10 mg tablet 10 mg PO QPM hydrochlorothiazide 25 mg tablet 25 mg PO DAILY tamsulosin 0.4 mg capsule 0.4 mg PO DAILY phentermine 30 mg capsule 30 mg PO DAILY Patient Comments: TAKE 1 CAPSULE BY MOUTH ONCE DAILY IN THE MORNING potassium chloride 20 mEq tablet,ER particles/crystals PO amlodipine 10 mg tablet 10 mg PO DAILY atorvastatin 20 mg tablet 20 mg PO BEDTIME torsemide 20 mg tablet 20 mg PO DAILY metformin 500 mg tablet extended release 24 hr 500 mg PO DAILY Trulicity 1.5 mg/0.5 mL pen injector 1.5 mg SUBCUT QWEEK spironolactone 25 mg tablet 25 mg PO DAILY gabapentin 300 mg capsule 300 mg PO .COMPLEX Qty: 90 2RF Rx Instructions: 1-2 PO Tid to begin at HS and titrate to pain relief pantoprazole [Protonix] 40 mg tablet,delayed release (DR/EC) 40 mg PO DAILY Referrals: Gino Nair MD [Primary Care Provider] - Stand Alone Forms: Patient Portal/API
[2023-12-01] MEDS: PANTOPRAZOLE 40 MG VIAL 80 MG IV (19:24)
[2023-12-01 19:30] VITALS: BP 154/75; PULSE 67; RESP 18; O2SAT 97
== END 2023-12-01 19:44 | disposition home or self-care (01) ==
PROVIDERS: Emergency Medicine; Emergency Provider Emergency Medicine; PCP Internal Medicine
DX: R19.5 Other fecal abnormalities (principal)
CPT/HCPCS: 36415; 80053; 85025; 85610; 85730; 86850; 86900; 86901; 96374; 99284; C9113

== ENCOUNTER → 2024-07-21 07:32 | Outpatient (CLI) | payer MEDICARE, OTHER, SELFPAY ==
[2018-11-10 20:00] VITALS: BMI 44.4
--- NOTE | 2024-07-21 07:34 | DI.NM.S_ITS ---
PROCEDURE: NM GASTRIC EMPTYING STUDY RADIOPHARMACEUTICAL: 1 mCi Tc-99m sulfur colloid in an egg sandwich. INDICATIONS: TYPE 2 DIABETES,ABDOMINAL BLEEDING TECHNIQUE: A Tc-99m labeled sulfur colloid labeled egg sandwich or oatmeal was served to the patient. Anterior and posterior planar images of the abdomen were obtained at 0 minutes and 30 minutes, then at hourly intervals up to 4 hours. The patient was upright and ambulating during the interval. COMPARISON: None. FINDINGS: The stomach has normal size, morphology, and position. There is normal emptying of solid gastric contents from the stomach by visual inspection. No gastroesophageal reflux is visualized. The percentage of tracer retained at specific time points are as follows: Time point Percent gastric retention Normal range 30 minutes 91% 70% or more 1 hour 69% 30% to 90% 2 hours 25% 60% or less 3 hours 17% 30% or less 4 hours 0% 10% or less IMPRESSION: Gastric emptying is within normal limits. Dictated by: Rufino Vegas M.D. on 07/21/2024 at 14:09 Approved by: Rufino Vegas M.D. on 07/21/2024 at 14:10
== END ==
PROVIDERS: PCP Internal Medicine; Referring Provider Internal Medicine; Visit Provider Internal Medicine
DX: E11.40 Type 2 diabetes mellitus with diabetic neuropathy, unspecified (principal); R14.0 Abdominal distension (gaseous)
CPT/HCPCS: 78264; A9541